=== PATIENT | male | born 1935 | race Caucasian/White ===

== ENCOUNTER 2017-08-17 14:34 | Emergency (ER) | payer MEDICARE, BC ==
[2017-08-17 14:41] VITALS: BP 143/81
[2017-08-17] MEDS ORDERED: Sodium Chloride 0.9% 10 ML Syringe FLUSH PRN (14:52)
[2017-08-17] MEDS ORDERED: Aspirin 81 MG Tab.Chew PO ONE (14:52)
--- NOTE | 2017-08-17 14:59 | EDM.PDOC ---
ED HPI GENERAL MEDICAL PROBLEM - General Chief Complaint: Chest Pain Stated Complaint: CHEST PAIN Time Seen by Provider: 08/17/17 14:42 Source of Information: Reports: Patient History Limitations: Reports: No Limitations - History of Present Illness INITIAL COMMENTS - FREE TEXT/NARRATIVE: The patient presents with chest pain. This started about 1/2 hour ago. It went away. He was a little short of breath with it. Before the pain he got nauseated and had some dry heaves. He has been having some diarrhea about a week ago and he went to the [facility] and everything checked out okay. He has no fever, chills, cough, congestion, runny nose, abdominal pain or edema in his legs. He was diagnosed with a PE in May. He is now on xaralto. He has no cardiac history and he does not smoke. Onset: Sudden Duration: Minutes: (30) Location: Reports: Chest Quality: Reports: Sharp Severity: Moderate Improves with: Reports: None Worsens with: Reports: None Associated Symptoms: Reports: Chest Pain, Shortness of Breath. Denies: Cough, Fever/Chills, Headaches, Nausea/Vomiting, Weakness Chest Pain Score (Numeric/FACES): 10 - Related Data Allergies Allergy/AdvReac Type Severity Reaction Status Date / Time No Known Allergies Allergy Verified 08/17/17 14:38 Home Meds: Home Meds Cholecalciferol (Vitamin D3) [Vitamin D3] 4,000 units PO DAILY 09/20/14 [History ] Losartan [Cozaar] 25 mg PO DAILY 09/20/14 [History] Propranolol HCl [Propranolol] 120 mg PO DAILY 09/20/14 [History] Simvastatin [Zocor] 10 mg PO BEDTIME 09/20/14 [History] Rivaroxaban [Xarelto] 20 mg PO DAILY 05/21/15 [History] Ubidecarenone [Coenzyme Q10] 10 mg PO DAILY 05/16/16 [History] rOPINIRole [Requip] 1 mg PO BID 05/16/16 [History] Albuterol Sulfate [Proair Respiclick] 90 mcg IH Q4H PRN #1 [email or web address] 05/20/16 [ Rx] Dextromethorphan/guaiFENesin [Robitussin DM] 10 ml PO Q4H PRN #1 bottle [Rx] Past Medical History HEENT History: Reports: Hard of Hearing, Impaired Vision Other HEENT History: wears glasses, hearing aids Cardiovascular History: Reports: High Cholesterol, Hypertension Respiratory History: Reports: PE Gastrointestinal History: Reports: Chronic Constipation, Diverticulosis Genitourinary History: Reports: Urinary Incontinence Musculoskeletal History: Reports: None Oncologic (Cancer) History: Reports: Prostate, Other (See Below) Other Oncologic History: skin cancer Dermatologic History: Reports: Other (See Below) Other Dermatologic History: skin cancer removed - Infectious Disease History Infectious Disease History: Reports: Chicken Pox, Measles, Mumps - Past Surgical History HEENT Surgical History: Reports: None Cardiovascular Surgical History: Reports: None Respiratory Surgical History: Reports: None GI Surgical History: Reports: Appendectomy, Hernia Repair/Other Male Surgical History: Reports: Prostatectomy Musculoskeletal Surgical History: Reports: Knee Replacement Other Musculoskeletal Surgeries/Procedures:: bilateral knee replacements Dermatological Surgical History: Reports: Skin Biopsy Social & Family History - Family History Family Medical History: Noncontributory - Tobacco Use Smoking Status *Q: Never Smoker Second Hand Smoke Exposure: No - Caffeine Use Caffeine Use: Reports: None - Alcohol Use Days Per Week of Alcohol Use: 0 - Recreational Drug Use Recreational Drug Use: No Drug Use in Last 12 Months: No - Living Situation & Occupation Living situation: Reports: Occupation: Retired ED ROS GENERAL - Review of Systems Review Of Systems: See Below Constitutional: Reports: No Symptoms HEENT: Reports: No Symptoms Respiratory: Reports: Shortness of Breath Cardiovascular: Reports: Chest Pain Endocrine: Reports: No Symptoms GI/Abdominal: Reports: No Symptoms : Reports: No Symptoms Musculoskeletal: Reports: No Symptoms Skin: Reports: No Symptoms Neurological: Reports: No Symptoms ED EXAM, GENERAL - Physical Exam Exam: See Below Exam Limited By: No Limitations General Appearance: Alert, No Apparent Distress Ears: Normal External Exam Nose: Normal Inspection Head: Atraumatic, Normocephalic Neck: Normal Inspection Respiratory/Chest: No Respiratory Distress, Lungs Clear, Normal Breath Sounds Cardiovascular: Regular Rate, Rhythm, No Edema, No Murmur GI/Abdominal: Soft, Non-Tender, No Organomegaly, No Mass Back Exam: Normal Inspection Extremities: Normal Inspection Neurological: Alert, Oriented, No Motor/Sensory Deficits EKG INTERPRETATION EKG Date: 08/17/17 Time: 14:37 Rhythm: NSR Rate (Beats/Min): 62 [place]: Normal P-Wave: Present QRS: Normal ST-T: Normal QT: Normal FL/PQ Interval: 1st degree HB Course - Vital Signs Last Recorded V/S: Last Vital Signs Temp 97.6 F 08/17/17 14:38 Pulse 62 08/17/17 14:38 Resp 18 08/17/17 14:38 BP 143/81 H 08/17/17 14:38 Pulse Ox 95 08/17/17 14:38 - Orders/Labs/Meds Orders: Active Orders 24 hr Category Date Time Status Cardiac Monitoring [RC] . DIRECTED Care 08/17/17 14:52 Active EKG Documentation Completion [RC] ASDIRECTED Care 08/17/17 17:13 Active EKG Documentation Completion [RC] STAT Care 08/17/17 14:52 Active Peripheral IV Care [RC] . DIRECTED Care 08/17/17 14:52 Active Sodium Chloride 0.9% [Saline Flush] Med 08/17/17 14:52 Active 10 ml FLUSH ASDIRECTED PRN Peripheral IV Insertion Adult [OM.PC] Stat Oth 08/17/17 14:52 Ordered EKG 12 Lead [EK] Stat Ther 08/17/17 17:12 Ordered Medication Orders Sodium Chloride (Saline Flush) 10 ml FLUSH ASDIRECTED PRN PRN Reason: Keep Vein Open Last Admin: 08/17/17 15:08 Dose: 10 ml Labs: Laboratory Tests 08/17/17 08/17/17 08/17/17 Range/Units 14:48 14:48 17:30 WBC 9.56 H (4.23-9.07) K/mm3 RBC 5.35 (4.63-6.08) M/mm3 Hgb 15.8 (13.7-17.5) gm/L Hct 48.3 (40.1-51.0) % MCV 90.3 (79.0-92.2) fl MCH 29.5 (25.7-32.2) pg MCHC 32.7 (32.2-35.5) g/dl RDW Std Deviation 46.7 H (35.1-43.9) fL Plt Count 218 (163-337) K/mm3 MPV 10.1 (9.4-12.3) fl Neut % (Auto) 77.4 H (34.0-67.9) % Lymph % (Auto) 14.6 L (21.8-53.1) % [place] % (Auto) 5.5 (5.3-12.2) % Eos % (Auto) 2.0 (0.8-7.0) Baso % (Auto) 0.2 (0.1-1.2) % Neut # (Auto) 7.39 H (1.78-5.38) K/mm3 Lymph # (Auto) 1.40 (1.32-3.57) K/mm3 [place] # (Auto) 0.53 (0.30-0.82) K/mm3 Eos # (Auto) 0.19 (0.04-0.54) K/mm3 Baso # (Auto) 0.02 (0.01-0.08) K/mm3 Sodium 142 (136-145) mEq/L Potassium 4.3 (3.5-5.1) mEq/L Chloride 105 (98-107) mEq/L Carbon Dioxide 27 (21-32) mEq/L Anion Gap 14.3 (5-15) BUN 26 H (7-18) mg/dL Creatinine 1.7 H (0.7-1.3) mg/dL Est Cr Clr Drug Dosing 34.00 mL/min Estimated GFR (MDRD) 39 (>60) mL/min BUN/Creatinine Ratio 15.3 (14-18) Glucose 92 (83-115) mg/dL Calcium 9.4 (8.5-10.1) mg/dL Total Bilirubin 1.0 (0.2-1.0) mg/dL AST 27 (15-37) U/L ALT 51 (16-63) U/L Alkaline Phosphatase 57 (46-116) U/L Troponin I < 0.017 < 0.017 (0.00-0.056) ng/mL Total Protein 7.7 (6.4-8.2) g/dl Albumin 3.9 (3.4-5.0) g/dl Globulin 3.8 gm/dL Albumin/Globulin Ratio 1.0 (1-2) Meds: Medications Generic Name Dose Route Start Last Admin Trade Name Freq PRN Reason Stop Dose Admin Sodium Chloride 10 ml 08/17/17 14:52 08/17/17 15:08 Saline Flush FLUSH 10 ml ASDIRECTED PRN Administration Keep Vein Open Discontinued Medications Generic Name Dose Route Start Last Admin Trade Name [place] PRN Reason Stop Dose Admin Aspirin 324 mg 08/17/17 14:52 08/17/17 15:06 Aspirin PO 08/17/17 14:53 324 mg ONETIME ONE Administration Sodium Chloride 500 mls @ 1,000 mls/hr 08/17/17 15:27 08/17/17 15:33 Normal Saline IV 08/17/17 15:56 1,000 mls/hr .BOLUS ONE Administration - Re-Assessments/Exams Free Text/Narrative Re-Assessment/Exam: 08/17/17 14:59 I ordered an IV saline lock, EKG, CXR, and labs. His EKG shows a 1st degree HB with no acute changes. 08/17/17 18:14 His CXR looks good. His WBC was slightly elevated at 9.56. His creatinine was elevated at 1.7. It has never been that high when he has been in before. I ordered an IV NS 500mL bolus. His torponin was negative. I ordered a repeat EKG and troponin and that was negative and his repeat EKG looked good. I will discharge him home and I have ordered stool studies that he will collect at home. Departure - Departure Time of Disposition: 18:15 Disposition: Home, Self-Care 01 Condition: Good Clinical Impression: Atypical chest pain, Renal insufficiency Diarrhea Qualifiers: Diarrhea type: unspecified type Qualified Code(s): R19.7 - Diarrhea, unspecified Referrals: [facility] [Primary Care Provider] - Forms: ED Department Discharge Additional Instructions: Drink plenty of water. Collect the diarrhea and bring it back to be tested. We will test if for bacteria and parasites. Please return if you are worse. Follow up in 1 week to have your kidneys rechecked. - My Orders Last 24 Hours: My Active Orders 08/17/17 14:52 Cardiac Monitoring [RC] . DIRECTED EKG Documentation Completion [RC] STAT Peripheral IV Care [RC] . DIRECTED Sodium Chloride 0.9% [Saline Flush] 10 ml FLUSH ASDIRECTED PRN Peripheral IV Insertion Adult [OM.PC] Stat 08/17/17 17:12 EKG 12 Lead [EK] Stat 08/17/17 17:13 EKG Documentation Completion [RC] ASDIRECTED - Assessment/Plan Last 24 Hours: My Active Orders 08/17/17 14:52 Cardiac Monitoring [RC] . DIRECTED EKG Documentation Completion [RC] STAT Peripheral IV Care [RC] . DIRECTED Sodium Chloride 0.9% [Saline Flush] 10 ml FLUSH ASDIRECTED PRN Peripheral IV Insertion Adult [OM.PC] Stat 08/17/17 17:12 EKG 12 Lead [EK] Stat 08/17/17 17:13 EKG Documentation Completion [RC] ASDIRECTED
[2017-08-17] MEDS ORDERED: Sodium Chloride 0.9% 500 ML IV ONE (15:27)
--- NOTE | 2017-08-17 15:30 | CR ---
Chest: Portable view of the chest was obtained. Comparison: Prior chest x-ray of 05/17/16. Heart size is normal. Tortuous thoracic aorta is seen. Minimal atelectasis is seen within both lung bases. Lungs otherwise are clear. Bony structures are grossly intact. Impression: 1. Incidental findings. Nothing acute is appreciated on portable chest x-ray. Diagnostic code #2
[2017-08-17] MEDS ORDERED: Ondansetron 4 MG Tab.DIS PO ONE (18:41)
== END 2017-08-17 18:34 | disposition home or self-care (01) ==
LOC: JD.ED 14:34
DX: R07.89 Other chest pain (principal); N28.9 Disorder of kidney and ureter, unspecified; R19.7 Diarrhea, unspecified; E78.00 Pure hypercholesterolemia, unspecified; I10 Essential (primary) hypertension; Z79.899 Other long term (current) drug therapy
CPT/HCPCS: 36415; 71045; 80053; 84484; 85025; 87046; 87328; 87329; 87493; 93005; 96360; 99285; A9270; J7040; J7050; 87427; 93010; 99284-25

== ENCOUNTER 2018-12-09 10:16 | Emergency (ER) | payer MEDICARE, BC, OTHER ==
[2018-12-09 10:36] VITALS: BP 135/63
[2018-12-09] MEDS ORDERED: Acetaminophen/HYDROcodone 325-5 MG Tab PO ONE (10:52)
--- NOTE | 2018-12-09 11:01 | EDM.PDOC ---
ED HPI GENERAL MEDICAL PROBLEM - General Chief Complaint: Back Pain or Injury Stated Complaint: BACK PAIN SENT FROM [place] Time Seen by Provider: 12/09/18 10:30 Source of Information: Reports: Patient, RN Notes Reviewed - History of Present Illness INITIAL COMMENTS - FREE TEXT/NARRATIVE: 83-year-old male comes in with quite severe low back discomfort. He states he awakened with pain in the low back area about one week ago. He did feel better after a massage but after spending 3-4 hours a riding lawnmower last evening the pain has become much worse. Now it is very painful to sit up, walk or move in any way. The pain has not been traveling down either leg but does radiate completely across the low back. He also has had some mild cold symptoms for about for 5 days. There is been some congestion, he did have a sore throat but that is gone. Occasional sneezing and nonproductive cough. No current fever or chills. He does not recall any particular fall or lifting injury to his back. - Related Data Allergies Allergy/AdvReac Type Severity Reaction Status Date / Time No Known Allergies Allergy Verified 12/09/18 10:36 Home Meds: Home Meds Cholecalciferol (Vitamin D3) [Vitamin D3] 2 tab PO DAILY 12/09/18 [History] Fish Oil/[place]-3 Fatty Acids [Fish Oil 1,000 MG] 2 tab PO DAILY 12/09/18 [ History] Lactobacillus Acidophilus [Acidophilus] 1 each PO DAILY 12/09/18 [History] Losartan [Cozaar] 25 mg PO DAILY 12/09/18 [History] Multivitamin [Daily Multiple Vitamin] 1 each PO DAILY 12/09/18 [History] Propranolol HCl [Inderal LA] 120 mg PO DAILY 12/09/18 [History] Pyridoxine HCl 25 mg PO DAILY 12/09/18 [History] Rivaroxaban [Xarelto] 20 mg PO DAILY 12/09/18 [History] Vit A/C/E AC/Znox/Cupric Oxide [Eye Vitamin-Minerals Tablet] 1 tab PO DAILY [History] atorvaSTATin Calcium [Atorvastatin Calcium] 40 mg PO BEDTIME 12/09/18 [History] rOPINIRole HCl [Ropinirole ER] 1 mg PO BID 12/09/18 [History] Past Medical History HEENT History: Reports: Hard of Hearing, Impaired Vision Other HEENT History: wears glasses, hearing aids Cardiovascular History: Reports: High Cholesterol, Hypertension Respiratory History: Reports: PE Gastrointestinal History: Reports: Chronic Constipation, Diverticulosis Genitourinary History: Reports: Urinary Incontinence Musculoskeletal History: Reports: None Oncologic (Cancer) History: Reports: Prostate, Other (See Below) Other Oncologic History: skin cancer Dermatologic History: Reports: Other (See Below) Other Dermatologic History: skin cancer removed - Infectious Disease History Infectious Disease History: Reports: Chicken Pox, Measles, Mumps - Past Surgical History HEENT Surgical History: Reports: None Cardiovascular Surgical History: Reports: None Respiratory Surgical History: Reports: None GI Surgical History: Reports: Appendectomy, Hernia Repair/Other Male Surgical History: Reports: Prostatectomy Musculoskeletal Surgical History: Reports: Knee Replacement Other Musculoskeletal Surgeries/Procedures:: bilateral knee replacements Dermatological Surgical History: Reports: Skin Biopsy Social & Family History - Family History Family Medical History: Noncontributory - Tobacco Use Smoking Status *Q: Current Status Unknown - Caffeine Use Caffeine Use: Reports: None - Living Situation & Occupation Living situation: Reports: Occupation: Retired ED ROS GENERAL - Review of Systems Review Of Systems: See Below Constitutional: Denies: Fever, Chills, Diaphoresis HEENT: Reports: Rhinitis (Gone mild), Throat Pain Respiratory: Reports: Cough. Denies: Shortness of Breath Cardiovascular: Denies: Chest Pain (Occasional nonproductive) GI/Abdominal: Denies: Abdominal Pain, Nausea, Vomiting Musculoskeletal: Reports: Back Pain. Denies: Leg Pain Skin: Denies: Rash Neurological: Denies: Numbness, Tingling, Weakness ED EXAM,LOWER BACK PAIN/INJURY - Physical Exam Exam: See Below General Appearance: Alert, Mild Distress Eye Exam: Bilateral Eye: PERRL Throat/Mouth: Normal Inspection, Normal Oropharynx Head: No: Facial Swelling Neck: Supple Respiratory/Chest: No Respiratory Distress, Lungs Clear, Normal Breath Sounds. No: Rales, Rhonchi Cardiovascular: Regular Rate, Rhythm GI/Abdominal: Soft, Non-Tender Back Exam: Other (Mild tenderness bilateral low back, no bruising or swelling) Extremities: No Pedal Edema Neurological: Alert, No Motor/Sensory Deficits Skin Exam: Warm, Dry, Normal Color Course - Vital Signs Last Recorded V/S: Last Vital Signs Temp 98.7 F 12/09/18 10:34 Pulse 62 05/31/19 10:34 Resp 18 12/09/18 10:34 BP 135/63 12/09/18 10:34 Pulse Ox 96 12/09/18 10:34 - Orders/Labs/Meds Labs: Laboratory Tests 12/09/18 12/09/18 12/09/18 Range/Units 11:25 11:25 12:05 WBC 7.57 (4.23-9.07) K/mm3 RBC 4.52 L (4.63-6.08) M/mm3 Hgb 13.5 L D (13.7-17.5) gm/L Hct 41.8 (40.1-51.0) % MCV 92.5 H (79.0-92.2) fl MCH 29.9 (25.7-32.2) pg MCHC 32.3 (32.2-35.5) g/dl RDW Std Deviation 45.9 H (35.1-43.9) fL Plt Count 201 (163-337) K/mm3 MPV 9.5 (9.4-12.3) fl Neut % (Auto) 46.9 (34.0-67.9) % Lymph % (Auto) 40.7 (21.8-53.1) % [place] % (Auto) 7.9 (5.3-12.2) % Eos % (Auto) 3.3 (0.8-7.0) Baso % (Auto) 0.7 (0.1-1.2) % Neut # (Auto) 3.55 (1.78-5.38) K/mm3 Lymph # (Auto) 3.08 (1.32-3.57) K/mm3 [place] # (Auto) 0.60 (0.30-0.82) K/mm3 Eos # (Auto) 0.25 (0.04-0.54) K/mm3 Baso # (Auto) 0.05 (0.01-0.08) K/mm3 Sodium 141 (136-145) mEq/L Potassium 3.8 (3.5-5.1) mEq/L Chloride 105 (98-107) mEq/L Carbon Dioxide 26 (21-32) mEq/L Anion Gap 13.8 (5-15) BUN 26 H (7-18) mg/dL Creatinine 1.6 H (0.7-1.3) mg/dL Est Cr Clr Drug Dosing 34.85 mL/min Estimated GFR (MDRD) 41 (>60) mL/min BUN/Creatinine Ratio 16.3 (14-18) Glucose 124 H (83-115) mg/dL Calcium 9.0 (8.5-10.1) mg/dL Total Bilirubin 1.0 (0.2-1.0) mg/dL AST 26 (15-37) U/L ALT 48 (16-63) U/L Alkaline Phosphatase 63 (46-116) U/L Total Protein 6.8 (6.4-8.2) g/dl Albumin 3.3 L (3.4-5.0) g/dl Globulin 3.5 gm/dL Albumin/Globulin Ratio 0.9 L (1-2) Urine Color Yellow (Yellow) Urine Appearance Cloudy H (Clear) Urine pH 5.5 (5.0-8.0) Ur Specific [place] 1.020 (1.005-1.030) Urine Protein 1+ H (Negative) Urine Glucose (UA) Negative (Negative) Urine Ketones Negative (Negative) Urine Occult Blood 3+ H (Negative) Urine Nitrite Positive H (Negative) Urine Bilirubin Negative (Negative) Urine Urobilinogen 0.2 (0.2-1.0) Ur Leukocyte Esterase 2+ H (Negative) Urine RBC 10-20 H (0-5) /hpf Urine WBC 30-40 H (0-5) /hpf Urine WBC Clumps Moderate (NOT SEEN) /hpf Ur Squamous Epith Cells Not seen (0-5) /hpf Urine Bacteria Moderate H (FEW) /hpf Urine Mucus Not seen (FEW) /hpf Meds: Medications Discontinued Medications Generic Name Dose Route Start Last Admin Trade Name Freq PRN Reason Stop Dose Admin Acetaminophen 975 mg 12/09/18 11:26 12/09/18 11:33 Tylenol PO 12/09/18 11:27 975 mg NOW ONE Administration Hydrocodone Bitart/Acetaminophen 1 tab 12/09/18 10:52 12/09/18 11:23 [place] 325-5 Mg PO 12/09/18 10:53 Not Given ONETIME ONE Levofloxacin 500 mg 12/09/18 12:39 Levaquin PO 12/09/18 12:40 ONETIME ONE Departure - Departure Time of Disposition: 12:43 Disposition: Home, Self-Care 01 Condition: Fair Clinical Impression: Bronchitis UTI (urinary tract infection) Qualifiers: Urinary tract infection type: acute cystitis Hematuria presence: without hematuria Qualified Code(s): N30.00 - Acute cystitis without hematuria - Discharge Information Referrals: Perla Ayon MD [Primary Care Provider] - Forms: ED Department Discharge Additional Instructions: Rest, drink plenty of water to maintain hydration, we have given your first dose of Levaquin antibiotic here in the emergency department. Your next dose should be tomorrow morning and continue that daily for 1 week or until gone. Follow-up with your regular medical provider in about 5-7 days for recheck, call for appointment. Tylenol every 6-8 hours as needed for achiness and discomfort. Return to ED as needed if symptoms worsening in any way
[2018-12-09] MEDS ORDERED: Acetaminophen 325 MG Tab PO ONE (11:26)
--- NOTE | 2018-12-09 12:02 | CR ---
Chest: Frontal view of the chest was obtained. Comparison: Prior chest x-ray of 08/17/17 Increasing interstitial change is noted within both perihilar regions as well as both lung bases. Findings are most likely due to bronchitis superimposed upon fibrosis. No alveolar type densities are seen. Heart size is normal. Tortuous thoracic aorta is seen. Bony structures are grossly intact. Impression: 1. Increasing interstitial change as described above most likely representing bronchitis superimposed upon fibrosis. 2. Other incidental findings. Diagnostic code #3
--- NOTE | 2018-12-09 12:02 | CR ---
Lumbar spine: AP, lateral and cone-down lateral view centered to the lumbosacral junction were obtained. Comparison: No prior lumbar spine imaging. Severe disc space narrowing is noted at L2-L3. Mild posterior osteophytes and anterior osteophytes are noted at L2-L3. Mild anterior osteophytes are also noted within L4 and L5. Other disc spaces are maintained. Vertebral body heights are maintained. Pedicles as well as visualized transverse and spinous processes are intact. Sacroiliac joints appear within normal limits. Surgical clips are seen within the pelvis. Impression: 1. Degenerative change as noted above, primarily at L2-L3. Diagnostic code #2
[2018-12-09] MEDS ORDERED: Levofloxacin 500 MG Tab PO ONE (12:39)
== END 2018-12-09 12:55 | disposition home or self-care (01) ==
LOC: JD.ED 10:16
DX: J40 Bronchitis, not specified as acute or chronic (principal); N30.00 Acute cystitis without hematuria; M54.5 Low back pain; I10 Essential (primary) hypertension; Z90.49 Acquired absence of other specified parts of digestive tract; Z96.653 Presence of artificial knee joint, bilateral
CPT/HCPCS: 36415; 71045; 72100; 80053; 81001; 85025; 99283; A9270

== ENCOUNTER 2019-06-29 10:14 | Emergency (ER) | payer MEDICARE, BC ==
[2019-06-29 10:26] VITALS: BP 145/81; PULSE 88
--- NOTE | 2019-06-29 11:12 | CT ---
Head CT Technique: Multiple axial sections through the brain were obtained. Intravenous contrast was not utilized. Comparison: Previous head CT study of 05/15/16. 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 Ventricles along with basal cisterns and sulci over convexities are mildly prominent. Minimal diminished density is noted within portions of the periventricular white matter compatible with small vessel ischemic demyelination change. No other abnormal parenchymal densities are seen. No evidence of intracranial hemorrhage. No midline shift or mass effect is seen. Bone window settings were reviewed which show nothing acute within the mastoid sinuses or within the visualized paranasal sinuses. No acute calvarial abnormality is appreciated. Impression: 1. Senescent change as noted above. 2. No acute intracranial abnormality is appreciated. 3. No significant change is seen from previous head CT exam. Diagnostic code #2 This report was dictated in [place] Standard Time
--- NOTE | 2019-06-29 11:44 | CR ---
Pelvis and left hip: AP view of the pelvis was obtained as well as AP view and slight frog-leg lateral view of the left hip. Findings: Joint space narrowing is noted within both hips. Osteopenia is seen. Disc space narrowing is noted within the lower lumbar spine. Surgical clips are seen within the pelvis. Sacroiliac joints appear within normal limits. Impression: 1. Degenerative change as noted above. 2. Nothing acute is definitely seen on AP pelvis or on two-view left hip exam. Diagnostic code #2 This report was dictated in [place] Standard Time
--- NOTE | 2019-06-29 12:27 | EDM.PDOC ---
ED HPI GENERAL MEDICAL PROBLEM - General Chief Complaint: Upper Extremity Injury/Pain Stated Complaint: FALL/LEFT SHOULDER PAIN Time Seen by Provider: 06/29/19 10:29 Source of Information: Reports: Patient History Limitations: Reports: No Limitations - History of Present Illness INITIAL COMMENTS - FREE TEXT/NARRATIVE: The patient presents with left shoulder and left hip pain. He was moving some lumber last night and he was walking backward and he either slipped on ice or tripped and he landed on his left side. He did hit his head and he did have a headache but that is better. He is on xarelto. He also has left shoulder pain and he cannot move his shoulder. He is right handed. He also has some pain in his left hip. He can walk but there is pain. He has no chest pain or shortness of breath. Onset: Sudden Duration: Day(s): (Last night) Location: Reports: Head, Upper Extremity, Left (shoulder), Lower Extremity, Left (hip) Quality: Reports: Sharp Severity: Moderate Improves with: Reports: Immobilization Worsens with: Reports: Movement Context: Reports: Trauma (slipped and fell) Associated Symptoms: Reports: No Other Symptoms Left Shoulder Pain Score (Numeric/FACES): 10 - Related Data Allergies Allergy/AdvReac Type Severity Reaction Status Date / Time No Known Allergies Allergy Verified 12/09/18 10:36 Home Meds: Home Meds Cholecalciferol (Vitamin D3) [Vitamin D3] 2 tab PO DAILY 12/09/18 [History] Fish Oil/[place]-3 Fatty Acids [Fish Oil 1,000 MG] 2 tab PO DAILY 12/09/18 [ History] Lactobacillus Acidophilus [Acidophilus] 1 each PO DAILY 12/09/18 [History] Losartan [Cozaar] 25 mg PO DAILY 12/09/18 [History] Multivitamin [Daily Multiple Vitamin] 1 each PO DAILY 12/09/18 [History] Propranolol HCl [Inderal LA] 120 mg PO DAILY 12/09/18 [History] Pyridoxine HCl (Vitamin B6) [Pyridoxine HCl] 25 mg PO DAILY 12/09/18 [History] Rivaroxaban [Xarelto] 20 mg PO DAILY 12/09/18 [History] Vit A/C/E AC/Znox/Cupric Oxide [Eye Vitamin-Minerals Tablet] 1 tab PO DAILY [History] atorvaSTATin Calcium [Atorvastatin Calcium] 40 mg PO BEDTIME 12/09/18 [History] levoFLOXacin [Levaquin] 250 mg PO DAILY #7 tab 12/09/18 [Rx] rOPINIRole HCl [Ropinirole ER] 1 mg PO BID 12/09/18 [History] Past Medical History HEENT History: Reports: Hard of Hearing, Impaired Vision Other HEENT History: wears glasses, hearing aids Cardiovascular History: Reports: High Cholesterol, Hypertension Respiratory History: Reports: PE Gastrointestinal History: Reports: Chronic Constipation, Diverticulosis Genitourinary History: Reports: Urinary Incontinence Musculoskeletal History: Reports: None Oncologic (Cancer) History: Reports: Prostate, Other (See Below) Other Oncologic History: skin cancer Dermatologic History: Reports: Other (See Below) Other Dermatologic History: skin cancer removed - Infectious Disease History Infectious Disease History: Reports: Chicken Pox, Measles, Mumps - Past Surgical History HEENT Surgical History: Reports: None Cardiovascular Surgical History: Reports: None Respiratory Surgical History: Reports: None GI Surgical History: Reports: Appendectomy, Hernia Repair/Other Male Surgical History: Reports: Prostatectomy Musculoskeletal Surgical History: Reports: Knee Replacement Other Musculoskeletal Surgeries/Procedures:: bilateral knee replacements Dermatological Surgical History: Reports: Skin Biopsy Social & Family History - Family History Family Medical History: Noncontributory - Tobacco Use Smoking Status *Q: Never Smoker - Caffeine Use Caffeine Use: Reports: None - Living Situation & Occupation Living situation: Reports: Occupation: Retired Review of Systems - Review of Systems Review Of Systems: See Below Constitutional: Reports: No Symptoms Eyes: Reports: No Symptoms Ears: Reports: No Symptoms Nose: Reports: No Symptoms Mouth/Throat: Reports: No Symptoms Respiratory: Reports: No Symptoms Cardiovascular: Reports: No Symptoms GI/Abdominal: Reports: No Symptoms Genitourinary: Reports: No Symptoms Musculoskeletal: Reports: Other (Left shoulder and hip pain) ED EXAM, GENERAL - Physical Exam Exam: See Below Exam Limited By: No Limitations General Appearance: Alert, No Apparent Distress Ears: Normal External Exam Nose: Normal Inspection Head: Atraumatic, Normocephalic Neck: Normal Inspection, Supple, Non-Tender Respiratory/Chest: No Respiratory Distress, Lungs Clear, Normal Breath Sounds Cardiovascular: Regular Rate, Rhythm, No Edema, No Murmur GI/Abdominal: Soft, Non-Tender, No Organomegaly, No Mass Back Exam: Normal Inspection Extremities: Other (Pain upon palpation to the anterior shoulder and he cannot lift his shoulder without help. He has good sensation and pulses distally. He has pain upon palpation to the left hip. He has good sensation and pulses distally.) Course - Vital Signs Last Recorded V/S: Last Vital Signs Temp 97.8 F 06/29/19 10:23 Pulse 88 06/29/19 10:23 Resp 16 06/29/19 10:23 BP 145/81 H 06/29/19 10:23 Pulse Ox 98 06/29/19 10:23 - Orders/Labs/Meds Orders: Active Orders 24 hr Category Date Time Status Shoulder Comp Lt [CR] Stat Exams 06/29/19 10:48 Taken - Re-Assessments/Exams Free Text/Narrative Re-Assessment/Exam: 06/29/19 12:[address] of his head and an x-ray of his left shoulder and left hip. The CT of his head shows senescent change. No acute intracranial abnormality is appreciated. No significant change is seen from previous head CT exam. The x-ray of his hip and pelvis shows degenerative change. Nothing acute is definitely seen on AP pelvis or on two-view left hip exam. 06/29/19 12:35 The x-ray shows findings suspicious for chronic rotator cuff tear and degenerative changes but nothing acute. I will get him in a sling and have him follow up with PT and Dr Rausch. Departure - Departure Time of Disposition: 12:45 Disposition: Home, Self-Care 01 Condition: Good Clinical Impression: Fall Qualifiers: Encounter type: initial encounter Qualified Code(s): W19.XXXA - Unspecified fall, initial encounter Head injury Qualifiers: Encounter type: initial encounter Qualified Code(s): S09.90XA - Unspecified injury of head, initial encounter Contusion of left hip Qualifiers: Encounter type: initial encounter Qualified Code(s): S70.02XA - Contusion of left hip, initial encounter Sprain of left shoulder Qualifiers: Encounter type: initial encounter Shoulder sprain type: unspecified sprain Qualified Code(s): S43.402A - Unspecified sprain of left shoulder joint, initial encounter - Discharge Information *PRESCRIPTION DRUG MONITORING PROGRAM REVIEWED*: Not Applicable *COPY OF PRESCRIPTION DRUG MONITORING REPORT IN PATIENT [place]: Not Applicable Referrals: Perla Ayon MD [Primary Care Provider] - Dada Rausch MD [Physician] - 1 Week Forms: ED Department Discharge Additional Instructions: Take tylenol or motrin for pain. Ice the areas that hurt for 15 minutes 3 times per day for 2 days. Wear the sling for comfort and take it off 3 to 5 times per day and try to move your shoulder to avoid frozen shoulder. Follow up with Dr Rausch and with physical therapy. Please return if you are worse. Sepsis Event Note - Evaluation Sepsis Screening Result: No Definite Risk - Focused Exam Vital Signs: Vital Signs Temp Pulse Resp BP Pulse Ox 06/29/19 10:23 97.8 F 88 16 145/81 H 98 Date Exam was Performed: 06/29/19 Time Exam was Performed: 12:35 - My Orders Last 24 Hours: My Active Orders 06/29/19 10:48 Shoulder Comp Lt [CR] Stat - Assessment/Plan Last 24 Hours: My Active Orders 06/29/19 10:48 Shoulder Comp Lt [CR] Stat
--- NOTE | 2019-06-29 12:35 | CR ---
Left shoulder: 3 views left shoulder were obtained. Comparison: No previous shoulder study. Humeral head is slightly subluxed superiorly suggesting chronic rotator cuff tear. Joint space narrowing and superior spurring is seen within the acromioclavicular joint. Bony structures are osteopenic. Impression: 1. Findings suspicious for chronic rotator cuff tear within the left shoulder. 2. Degenerative change within the acromioclavicular joint. Diagnostic code #2 This report was dictated in [place] Standard Time
== END 2019-06-29 13:15 | disposition home or self-care (01) ==
LOC: JD.ED 10:14
DX: S09.90XA Unspecified injury of head, initial encounter (principal); S43.402A Unspecified sprain of left shoulder joint, initial encounter; S70.02XA Contusion of left hip, initial encounter; I10 Essential (primary) hypertension; Z79.899 Other long term (current) drug therapy; Z90.49 Acquired absence of other specified parts of digestive tract; W19.XXXA Unspecified fall, initial encounter
CPT/HCPCS: 70450; 70450-26; 73030-26-LT; 73030-LT; 73502-26-LT; 73502-LT; 99284-25

== ENCOUNTER 2020-02-23 13:59 | Emergency (ER) | payer MEDICARE, BC ==
[2020-02-23 14:13] VITALS: BP 136/69; PULSE 56
[2020-02-23] MEDS ORDERED: Sodium Chloride 0.9% 10 ML Syringe FLUSH PRN (14:50)
--- NOTE | 2020-02-23 15:20 | CR ---
Chest: Portable view of the chest was obtained. Comparison: Prior chest x-ray of 12/09/18. Chronic increased markings are seen within both lung bases most likely representing basilar fibrosis. Upper lungs are clear. Heart size is normal. Tortuous thoracic aorta is seen. Bony structures are grossly intact. Impression: 1. Findings as described above. 2. Nothing acute is suspected. Diagnostic code #2 Study was dictated in MDT
--- NOTE | 2020-02-23 15:54 | EDM.PDOC ---
ED HPI GENERAL MEDICAL PROBLEM - General Chief Complaint: General Stated Complaint: HEADACHE/FATIGUE (SENT TO BE TESTED FOR COVID) Time Seen by Provider: 02/23/20 14:22 Source of Information: Reports: Patient, RN Notes Reviewed - History of Present Illness INITIAL COMMENTS - FREE TEXT/NARRATIVE: 84 yr old male became ill 8 days ago with abd pain, nausea, vomiting. He vomited multiple times for a day or so with no further vomiting but also poor appetite, generalized weakness, dizziness standing and walking for the past 6 days. No diarrhea. He has not been constipated. no focal weakness. No chest pain, cough or difficulty breathing. Pt is reported to have been confused, "not thinking clearly" but doing better today. Headache Pain Score (Numeric/FACES): 7 - Related Data Allergies Allergy/AdvReac Type Severity Reaction Status Date / Time No Known Allergies Allergy Verified 12/09/18 10:36 Home Meds: Home Meds Cholecalciferol (Vitamin D3) [Vitamin D3] 2 tab PO DAILY 12/09/18 [History] Fish Oil/[place]-3 Fatty Acids [Fish Oil 1,000 MG] 2 tab PO DAILY 12/09/18 [History] Lactobacillus Acidophilus [Acidophilus] 1 each PO DAILY 12/09/18 [History] Losartan [Cozaar] 25 mg PO DAILY 12/09/18 [History] Multivitamin [Daily Multiple Vitamin] 1 each PO DAILY 12/09/18 [History] Propranolol HCl [Inderal LA] 120 mg PO DAILY 12/09/18 [History] Pyridoxine HCl (Vitamin B6) [Pyridoxine HCl] 25 mg PO DAILY 12/09/18 [History] Rivaroxaban [Xarelto] 20 mg PO DAILY 12/09/18 [History] Vit A/C/E AC/Znox/Cupric Oxide [Eye Vitamin-Minerals Tablet] 1 tab PO DAILY 12/09/18 [History] atorvaSTATin Calcium [Atorvastatin Calcium] 40 mg PO BEDTIME 12/09/18 [History] levoFLOXacin [Levaquin] 250 mg PO DAILY #7 tab 12/09/18 [Rx] rOPINIRole HCl [Ropinirole ER] 1 mg PO BID 12/09/18 [History] Past Medical History HEENT History: Reports: Hard of Hearing, Impaired Vision Other HEENT History: wears glasses, hearing aids Cardiovascular History: Reports: High Cholesterol, Hypertension Respiratory History: Reports: PE Gastrointestinal History: Reports: Chronic Constipation, Diverticulosis Genitourinary History: Reports: Urinary Incontinence Musculoskeletal History: Reports: None Oncologic (Cancer) History: Reports: Prostate, Other (See Below) Other Oncologic History: skin cancer Dermatologic History: Reports: Other (See Below) Other Dermatologic History: skin cancer removed - Infectious Disease History Infectious Disease History: Reports: Chicken Pox, Measles, Mumps - Past Surgical History HEENT Surgical History: Reports: None Cardiovascular Surgical History: Reports: None Respiratory Surgical History: Reports: None GI Surgical History: Reports: Appendectomy, Hernia Repair/Other Male Surgical History: Reports: Prostatectomy Musculoskeletal Surgical History: Reports: Knee Replacement Other Musculoskeletal Surgeries/Procedures:: bilateral knee replacements Dermatological Surgical History: Reports: Skin Biopsy Social & Family History - Family History Family Medical History: Noncontributory - Tobacco Use Smoking Status *Q: Never Smoker - Caffeine Use Caffeine Use: Reports: None - Recreational Drug Use Recreational Drug Use: No - Living Situation & Occupation Living situation: Reports: Occupation: Retired ED ROS GENERAL - Review of Systems Review Of Systems: See Below Constitutional: Denies: Fever, Chills, Diaphoresis HEENT: Denies: Sinus Problem, Throat Pain Respiratory: Denies: Shortness of Breath, Cough Cardiovascular: Denies: Chest Pain Endocrine: Reports: Fatigue Musculoskeletal: Reports: No Symptoms Skin: Denies: Rash Neurological: Reports: Dizziness, Weakness (generalized). Denies: Headache, Numbness, Tingling, Trouble Speaking ED EXAM, GENERAL - Physical Exam Exam: See Below General Appearance: Alert, No Apparent Distress Head: Atraumatic. No: Facial Swelling Neck: Supple Respiratory/Chest: No Respiratory Distress, Lungs Clear, Normal Breath Sounds. No: Rhonchi, Wheezing Cardiovascular: Regular Rate, Rhythm GI/Abdominal: Soft, Non-Tender. No: Guarding Back Exam: No: CVA Tenderness (L), CVA Tenderness (R) Extremities: Normal Inspection. No: Pedal Edema, Leg Pain, Redness Neurological: Alert, Oriented, No Motor/Sensory Deficits Psychiatric: Normal Affect, Normal Mood Skin Exam: Warm, Dry, Normal Color EKG INTERPRETATION EKG Date: 02/23/20 Rhythm: NSR [place]: Normal P-Wave: Present QRS: Normal ST-T: Normal Course - Vital Signs Last Recorded V/S: Last Vital Signs Temp 97.5 F 02/23/20 14:11 Pulse 56 L 02/23/20 14:11 Resp 20 02/23/20 14:11 BP 136/69 02/23/20 14:11 Pulse Ox 98 02/23/20 14:11 Orthostatic Blood Pressure [ 105/74 Standing] Orthostatic Blood Pressure [ 125/63 Supine] - Orders/Labs/Meds Orders: Active Orders 24 hr Category Date Time Status CORONAVIRUS COVID-19 PCR PHL Stat Lab 02/23/20 16:15 Received Peripheral IV Insertion Adult [OM.PC] Stat Oth 02/23/20 14:50 Ordered Labs: Laboratory Tests 02/23/20 02/23/20 02/23/20 Range/Units 15:03 15:03 15:03 WBC 7.51 (4.23-9.07) K/mm3 RBC 4.27 L (4.63-6.08) M/mm3 Hgb 12.6 L (13.7-17.5) gm/dl Hct 39.2 L (40.1-51.0) % MCV 91.8 (79.0-92.2) fl MCH 29.5 (25.7-32.2) pg MCHC 32.1 L (32.2-35.5) g/dl RDW Std Deviation 45.4 H (35.1-43.9) fL Plt Count 324 D (163-337) K/mm3 MPV 9.1 L (9.4-12.3) fl Neut % (Auto) 49.2 (34.0-67.9) % Lymph % (Auto) 35.3 (21.8-53.1) % [place] % (Auto) 9.6 (5.3-12.2) % Eos % (Auto) 2.7 (0.8-7.0) Baso % (Auto) 1.2 (0.1-1.2) % Neut # (Auto) 3.70 (1.78-5.38) K/mm3 Lymph # (Auto) 2.65 (1.32-3.57) K/mm3 [place] # (Auto) 0.72 (0.30-0.82) K/mm3 Eos # (Auto) 0.20 (0.04-0.54) K/mm3 Baso # (Auto) 0.09 H (0.01-0.08) K/mm3 Manual Slide Review Normal smear D-Dimer, Quantitative 0.26 (0.19-0.50) mg/L Sodium (136-145) mEq/L Potassium (3.5-5.1) mEq/L Chloride (98-107) mEq/L Carbon Dioxide (21-32) mEq/L Anion Gap (5-15) BUN (7-18) mg/dL Creatinine (0.7-1.3) mg/dL Est Cr Clr Drug Dosing mL/min Estimated GFR (MDRD) (>60) mL/min BUN/Creatinine Ratio (14-18) Glucose (83-115) mg/dL Calcium (8.5-10.1) mg/dL Ferritin (26-388) ng/ml Total Bilirubin (0.2-1.0) mg/dL AST (15-37) U/L ALT (16-63) U/L Alkaline Phosphatase (46-116) U/L Troponin I (0.00-0.056) ng/mL C-Reactive Protein 1.4 H* (<1.0) mg/dL Total Protein (6.4-8.2) g/dl Albumin (3.4-5.0) g/dl Globulin gm/dL Albumin/Globulin Ratio (1-2) 02/23/20 02/23/20 Range/Units 15:03 15:03 WBC (4.23-9.07) K/mm3 RBC (4.63-6.08) M/mm3 Hgb (13.7-17.5) gm/dl Hct (40.1-51.0) % MCV (79.0-92.2) fl MCH (25.7-32.2) pg MCHC (32.2-35.5) g/dl RDW Std Deviation (35.1-43.9) fL Plt Count (163-337) K/mm3 MPV (9.4-12.3) fl Neut % (Auto) (34.0-67.9) % Lymph % (Auto) (21.8-53.1) % [place] % (Auto) (5.3-12.2) % Eos % (Auto) (0.8-7.0) Baso % (Auto) (0.1-1.2) % Neut # (Auto) (1.78-5.38) K/mm3 Lymph # (Auto) (1.32-3.57) K/mm3 [place] # (Auto) (0.30-0.82) K/mm3 Eos # (Auto) (0.04-0.54) K/mm3 Baso # (Auto) (0.01-0.08) K/mm3 Manual Slide Review D-Dimer, Quantitative (0.19-0.50) mg/L Sodium 139 (136-145) mEq/L Potassium 3.9 (3.5-5.1) mEq/L Chloride 104 (98-107) mEq/L Carbon Dioxide 25 (21-32) mEq/L Anion Gap 13.9 (5-15) BUN 26 H (7-18) mg/dL Creatinine 1.5 H (0.7-1.3) mg/dL Est Cr Clr Drug Dosing 36.50 mL/min Estimated GFR (MDRD) 44 (>60) mL/min BUN/Creatinine Ratio 17.3 (14-18) Glucose 102 (83-115) mg/dL Calcium 8.7 (8.5-10.1) mg/dL Ferritin 214 (26-388) ng/ml Total Bilirubin 0.4 (0.2-1.0) mg/dL AST 17 (15-37) U/L ALT 31 (16-63) U/L Alkaline Phosphatase 68 (46-116) U/L Troponin I < 0.017 (0.00-0.056) ng/mL C-Reactive Protein (<1.0) mg/dL Total Protein 7.0 (6.4-8.2) g/dl Albumin 2.9 L (3.4-5.0) g/dl Globulin 4.1 gm/dL Albumin/Globulin Ratio 0.7 L (1-2) Meds: Medications Discontinued Medications Generic Name Dose Route Start Last Admin Trade Name Freq PRN Reason Stop Dose Admin Sodium Chloride 500 mls @ 999 mls/hr 02/23/20 16:00 02/23/20 16:14 Normal Saline IV 02/23/20 16:30 999 mls/hr .BOLUS ONE Administration Ondansetron HCl 4 mg 02/23/20 16:06 02/23/20 16:12 Zofran IVPUSH 02/23/20 16:07 4 mg ONETIME ONE Administration Sodium Chloride 10 ml 02/23/20 14:50 02/23/20 15:04 Saline Flush FLUSH 10 ml ASDIRECTED PRN Administration Keep Vein Open - Re-Assessments/Exams Free Text/Narrative Re-Assessment/Exam: 02/24/20 15:01 Labs all came back relatively nl. trop neg. CXR and head CT fine. Covid screen done, to be sent to state lab Departure - Departure Time of Disposition: 18:00 Disposition: Home, Self-Care 01 Condition: Fair Clinical Impression: Generalized weakness, Anorexia Vomiting Qualifiers: Vomiting type: unspecified Vomiting Intractability: non-intractable Nausea presence: with nausea Qualified Code(s): R11.2 - Nausea with vomiting, unspecified - Discharge Information Instructions: Weakness, [place], Vomiting, Adult Referrals: Perla Ayon MD [Primary Care Provider] - Forms: ED Department Discharge Additional Instructions: rest, clear liquids and very careful bland diet as tolerated. Your blood pressures today in the ED are running mildly low. Do not take your Inderol 120 mg LA today or tomorrow. Than go to every other day for now with that medication. Covid screen has been done. We will call you with results when they become available in 2 to 4 days. See your regular medical provider for recheck early next week. Call Wednesday morning for appointment. Return to ED as needed if symptoms worsening in any way. Sepsis Event Note (ED) - Evaluation Sepsis Screening Result: No Definite Risk - My Orders Last 24 Hours: My Active Orders 02/23/20 14:50 Peripheral IV Insertion Adult [OM.PC] Stat 02/23/20 16:15 CORONAVIRUS COVID-19 PCR PHL Stat - Assessment/Plan Last 24 Hours: My Active Orders 02/23/20 14:50 Peripheral IV Insertion Adult [OM.PC] Stat 02/23/20 16:15 CORONAVIRUS COVID-19 PCR PHL Stat
[2020-02-23] MEDS ORDERED: Sodium Chloride 0.9% 500 ML IV ONE (16:00)
[2020-02-23] MEDS ORDERED: Ondansetron 4 MG/2 ML SDV IVPUSH ONE (16:06)
--- NOTE | 2020-02-23 17:28 | CT ---
Head CT Technique: Multiple axial sections through the brain were obtained. Intravenous contrast was not utilized. Comparison: Prior head CT study of 06/29/19. Findings: Low density is noted within the left frontal lobe and within the posterior right parietal lobe. 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 Mild diminished density is noted within portions of the periventricular white matter which is compatible with small vessel ischemic demyelination change. No other abnormal parenchymal densities are seen. No evidence of intracranial hemorrhage. No midline shift or mass-effect is seen. Visualized mastoid sinuses and visualized paranasal sinuses show nothing acute. No acute calvarial finding is seen. Impression: 1. Senescent change as noted above. No change from previous head CT study is seen. 2. Nothing acute is identified on noncontrasted CT study. Diagnostic code #2 This report was dictated in MDT
--- NOTE | 2020-02-23 17:41 | CR ---
Abdomen: Supine and upright views the abdomen were obtained. Comparison: No previous study. Surgical clips are seen within the pelvis. Bowel gas pattern is normal. 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 Mild degenerative change is noted within the spine. Bowel gas pattern appears normal. Impression: 1. Findings as noted above. 2. Nothing acute is appreciated. Diagnostic code #2 This report was dictated in MDT
== END 2020-02-23 18:15 | disposition home or self-care (01) ==
LOC: JD.ED 13:59
DX: R53.1 Weakness (principal); R63.0 Anorexia; R11.2 Nausea with vomiting, unspecified; E78.00 Pure hypercholesterolemia, unspecified; I10 Essential (primary) hypertension; Z86.711 Personal history of pulmonary embolism; Z79.01 Long term (current) use of anticoagulants; Z79.899 Other long term (current) drug therapy; Z20.828 Contact with and (suspected) exposure to other viral communicable diseases
CPT/HCPCS: 36415; 70450; 71045; 74019; 80053; 82728; 84484; 85025; 85379; 86140; 96361; 96374; 99285; J2405; J7030; U0002; 93010; 99283

== ENCOUNTER 2020-03-28 00:15 | Inpatient (IN) | payer MEDICARE, BC, OTHER ==
[2020-03-28] MEDS ORDERED: Ondansetron 4 MG/2 ML SDV IVPUSH ONE (00:42)
[2020-03-28] MEDS ORDERED: Sodium Chloride 0.9% 10 ML Syringe FLUSH PRN (00:42)
[2020-03-28] MEDS: Sodium Chloride 0.9% 1,000 ML IV SCH ×2 (01:19→09:54)
--- NOTE | 2020-03-28 01:33 | EDM.PDOC ---
ED HPI GENERAL MEDICAL PROBLEM - General Chief Complaint: Respiratory Problem Stated Complaint: [facility] Time Seen by Provider: 03/28/20 00:20 Source of Information: Reports: Patient, EMS History Limitations: Reports: No Limitations - History of Present Illness INITIAL COMMENTS - FREE TEXT/NARRATIVE: The patient presents by [facility] from home for generalized weakness, fever, and cough. The patient has not been feeling good for a few days. He has generalized weakness, not eating, fever, cough and shortness of breath. He was tested for COVID 19 and he found out yesterday that he is positive. For the past couple of days he has not gotten out of bed. He has diarrhea, nausea and vomiting also. He has no chest pain. He has no abdominal pain. He has a few relatives that were positive and they were around him a lot lately. Onset: Gradual Duration: Day(s): Severity: Moderate Improves with: Reports: None Worsens with: Reports: None Associated Symptoms: Reports: Cough, Fever/Chills, Nausea/Vomiting, Shortness of Breath. Denies: Chest Pain, Headaches Headache Pain Score (Numeric/FACES): 6 - Related Data Allergies Allergy/AdvReac Type Severity Reaction Status Date / Time No Known Allergies Allergy Verified 03/28/20 00:23 Home Meds: Home Meds Cholecalciferol (Vitamin D3) [Vitamin D3] 2 tab PO DAILY 12/09/18 [History] Fish Oil/[place]-3 Fatty Acids [Fish Oil 1,000 MG] 2 tab PO DAILY 12/09/18 [History] Lactobacillus Acidophilus [Acidophilus] 1 each PO DAILY 12/09/18 [History] Losartan [Cozaar] 25 mg PO DAILY 12/09/18 [History] Multivitamin [Daily Multiple Vitamin] 1 each PO DAILY 12/09/18 [History] Propranolol HCl [Inderal LA] 120 mg PO DAILY 12/09/18 [History] Pyridoxine HCl (Vitamin B6) [Pyridoxine HCl] 25 mg PO DAILY 12/09/18 [History] Rivaroxaban [Xarelto] 20 mg PO DAILY 12/09/18 [History] Vit A/C/E AC/Znox/Cupric Oxide [Eye Vitamin-Minerals Tablet] 1 tab PO DAILY 12/09/18 [History] atorvaSTATin Calcium [Atorvastatin Calcium] 40 mg PO BEDTIME 12/09/18 [History] levoFLOXacin [Levaquin] 250 mg PO DAILY #7 tab 12/09/18 [Rx] rOPINIRole HCl [Ropinirole ER] 1 mg PO BID 12/09/18 [History] Past Medical History HEENT History: Reports: Hard of Hearing, Impaired Vision Other HEENT History: wears glasses, hearing aids Cardiovascular History: Reports: High Cholesterol, Hypertension Respiratory History: Reports: PE Gastrointestinal History: Reports: Chronic Constipation, Diverticulosis Genitourinary History: Reports: Urinary Incontinence Musculoskeletal History: Reports: None Oncologic (Cancer) History: Reports: Prostate, Other (See Below) Other Oncologic History: skin cancer Dermatologic History: Reports: Other (See Below) Other Dermatologic History: skin cancer removed - Infectious Disease History Infectious Disease History: Reports: Novel Coronavirus - Past Surgical History HEENT Surgical History: Reports: None Cardiovascular Surgical History: Reports: None Respiratory Surgical History: Reports: None GI Surgical History: Reports: Appendectomy, Hernia Repair/Other Male Surgical History: Reports: Prostatectomy Musculoskeletal Surgical History: Reports: Knee Replacement Other Musculoskeletal Surgeries/Procedures:: bilateral knee replacements Dermatological Surgical History: Reports: Skin Biopsy Social & Family History - Family History Family Medical History: Noncontributory - Tobacco Use Smoking Status *Q: Unknown Ever Smoked Second Hand Smoke Exposure: No - Caffeine Use Caffeine Use: Reports: None - Recreational Drug Use Recreational Drug Use: No - Living Situation & Occupation Living situation: Reports: Occupation: Retired ED ROS GENERAL - Review of Systems Review Of Systems: See Below Constitutional: Reports: Fever, Chills, Malaise, Weakness, Fatigue HEENT: Reports: No Symptoms Respiratory: Reports: Shortness of Breath, Cough Cardiovascular: Reports: No Symptoms Endocrine: Reports: No Symptoms GI/Abdominal: Reports: Diarrhea, Nausea, Vomiting. Denies: Abdominal Pain : Reports: No Symptoms Musculoskeletal: Reports: No Symptoms ED EXAM, GENERAL - Physical Exam Exam: See Below Exam Limited By: No Limitations General Appearance: Alert, No Apparent Distress Ears: Normal External Exam Nose: Normal Inspection Head: Atraumatic, Normocephalic Neck: Normal Inspection Respiratory/Chest: No Respiratory Distress, Decreased Breath Sounds Cardiovascular: Regular Rate, Rhythm, No Edema, No Murmur GI/Abdominal: Soft, Non-Tender, No Organomegaly, No Mass Back Exam: Normal Inspection Course - Vital Signs Last Recorded V/S: Last Vital Signs Temp 97.6 F 03/28/20 00:19 Pulse 77 03/28/20 00:19 Resp 24 H 03/28/20 00:19 BP 138/71 03/28/20 00:19 Pulse Ox 88 L 03/28/20 00:19 - Orders/Labs/Meds Orders: Active Orders 24 hr Category Date Time Status Cardiac Monitoring [RC] . DIRECTED Care 03/28/20 00:42 Active Oxygen Therapy [RC] PRN Care 03/28/20 00:42 Active Peripheral IV Care [RC] . DIRECTED Care 03/28/20 00:43 Active Chest 1V Frontal [CR] Stat Exams 03/28/20 00:43 Taken CULTURE BLOOD [BC] Stat Lab 03/28/20 01:05 Received CULTURE BLOOD [BC] Stat Lab 03/28/20 01:12 Received Sodium Chloride 0.9% [Normal Saline] 1,000 ml Med 03/28/20 00:45 Active IV ASDIRECTED Sodium Chloride 0.9% [Saline Flush] Med 03/28/20 00:42 Active 10 ml FLUSH ASDIRECTED PRN Blood Culture x2 Reflex Set [OM.PC] Stat Oth 03/28/20 00:44 Ordered ED Antiemetic Medication Reflex [OM.PC] Stat Oth 03/28/20 00:42 Ordered Peripheral IV Insertion Adult [OM.PC] Stat Oth 03/28/20 00:42 Ordered Medication Orders Sodium Chloride (Normal Saline) 1,000 mls @ 125 mls/hr IV ASDIRECTED AMRIT Last Admin: 03/28/20 01:19 Dose: 125 mls/hr Documented by: RANDAL Sodium Chloride (Saline Flush) 10 ml FLUSH ASDIRECTED PRN PRN Reason: Keep Vein Open Last Admin: 03/28/20 01:21 Dose: 10 ml Documented by: RANDAL Labs: Laboratory Tests 03/28/20 03/28/20 03/28/20 Range/Units 01:05 01:05 01:05 WBC 5.14 (4.23-9.07) K/mm3 RBC 4.49 L (4.63-6.08) M/mm3 Hgb 13.4 L (13.7-17.5) gm/dl Hct 41.2 (40.1-51.0) % MCV 91.8 (79.0-92.2) fl MCH 29.8 (25.7-32.2) pg MCHC 32.5 (32.2-35.5) g/dl RDW Std Deviation 50.0 H (35.1-43.9) fL Plt Count 164 D (163-337) K/mm3 MPV 10.2 (9.4-12.3) fl Neut % (Auto) 62.8 (34.0-67.9) % Lymph % (Auto) 25.9 (21.8-53.1) % [place] % (Auto) 10.5 (5.3-12.2) % Eos % (Auto) 0.2 L (0.8-7.0) Baso % (Auto) 0.2 (0.1-1.2) % Neut # (Auto) 3.23 (1.78-5.38) K/mm3 Lymph # (Auto) 1.33 (1.32-3.57) K/mm3 [place] # (Auto) 0.54 (0.30-0.82) K/mm3 Eos # (Auto) 0.01 L (0.04-0.54) K/mm3 Baso # (Auto) 0.01 (0.01-0.08) K/mm3 PT 11.1 (9.7-11.7) SECONDS INR 1.04 D-Dimer, Quantitative 4.10 H (0.19-0.50) mg/L Puncture Site ABG pH (7.35-7.45) ABG pCO2 (35.0-45.0) mmHg ABG pO2 (80.0-100.0) mmHg ABG HCO3 (22.0-26.0) meq/L ABG O2 Saturation (96.0-97.0) % ABG Base Excess (-2-2.0) Syd Test O2 Delivery Device Oxygen Flow Rate Sodium 138 (136-145) mEq/L Potassium 4.0 (3.5-5.1) mEq/L Chloride 102 (98-107) mEq/L Carbon Dioxide 23 (21-32) mEq/L Anion Gap 17.0 H (5-15) BUN 24 H (7-18) mg/dL Creatinine 1.8 H (0.7-1.3) mg/dL Est Cr Clr Drug Dosing 30.42 mL/min Estimated GFR (MDRD) 36 (>60) mL/min BUN/Creatinine Ratio 13.3 L (14-18) Glucose 116 H (83-115) mg/dL Lactic Acid (0.4-2.0) mmol/L Calcium 8.4 L (8.5-10.1) mg/dL Ferritin (26-388) ng/ml Total Bilirubin 0.7 (0.2-1.0) mg/dL AST 41 H (15-37) U/L ALT 52 (16-63) U/L Alkaline Phosphatase 56 (46-116) U/L Lactate Dehydrogenase 221 (85-227) U/L C-Reactive Protein 2.1 H* (<1.0) mg/dL Total Protein 6.9 (6.4-8.2) g/dl Albumin 3.1 L (3.4-5.0) g/dl Globulin 3.8 gm/dL Albumin/Globulin Ratio 0.8 L (1-2) 03/28/20 03/28/20 03/28/20 Range/Units 01:05 01:05 02:05 WBC (4.23-9.07) K/mm3 RBC (4.63-6.08) M/mm3 Hgb (13.7-17.5) gm/dl Hct (40.1-51.0) % MCV (79.0-92.2) fl MCH (25.7-32.2) pg MCHC (32.2-35.5) g/dl RDW Std Deviation (35.1-43.9) fL Plt Count (163-337) K/mm3 MPV (9.4-12.3) fl Neut % (Auto) (34.0-67.9) % Lymph % (Auto) (21.8-53.1) % [place] % (Auto) (5.3-12.2) % Eos % (Auto) (0.8-7.0) Baso % (Auto) (0.1-1.2) % Neut # (Auto) (1.78-5.38) K/mm3 Lymph # (Auto) (1.32-3.57) K/mm3 [place] # (Auto) (0.30-0.82) K/mm3 Eos # (Auto) (0.04-0.54) K/mm3 Baso # (Auto) (0.01-0.08) K/mm3 PT (9.7-11.7) SECONDS INR D-Dimer, Quantitative (0.19-0.50) mg/L Puncture Site Lt radial ABG pH 7.39 (7.35-7.45) ABG pCO2 37.1 (35.0-45.0) mmHg ABG pO2 75.0 L (80.0-100.0) mmHg ABG HCO3 21.8 L (22.0-26.0) meq/L ABG O2 Saturation 94.4 L (96.0-97.0) % ABG Base Excess -2.2 L (-2-2.0) Syd Test Positive O2 Delivery Device Nasal cannula Oxygen Flow Rate 2.0 Sodium (136-145) mEq/L Potassium (3.5-5.1) mEq/L Chloride (98-107) mEq/L Carbon Dioxide (21-32) mEq/L Anion Gap (5-15) BUN (7-18) mg/dL Creatinine (0.7-1.3) mg/dL Est Cr Clr Drug Dosing mL/min Estimated GFR (MDRD) (>60) mL/min BUN/Creatinine Ratio (14-18) Glucose (83-115) mg/dL Lactic Acid 1.3 (0.4-2.0) mmol/L Calcium (8.5-10.1) mg/dL Ferritin 304 (26-388) ng/ml Total Bilirubin (0.2-1.0) mg/dL AST (15-37) U/L ALT (16-63) U/L Alkaline Phosphatase (46-116) U/L Lactate Dehydrogenase (85-227) U/L C-Reactive Protein (<1.0) mg/dL Total Protein (6.4-8.2) g/dl Albumin (3.4-5.0) g/dl Globulin gm/dL Albumin/Globulin Ratio (1-2) Meds: Medications Generic Name Dose Route Start Last Admin Trade Name Freq PRN Reason Stop Dose Admin Sodium Chloride 1,000 mls @ 125 mls/hr 03/28/20 00:45 03/28/20 01:19 Normal Saline IV 125 mls/hr ASDIRECTED AMRIT Administration Sodium Chloride 10 ml 03/28/20 00:42 03/28/20 01:21 Saline Flush FLUSH 10 ml ASDIRECTED PRN Administration Keep Vein Open Discontinued Medications Generic Name Dose Route Start Last Admin Trade Name Dickson PRN Reason Stop Dose Admin Ondansetron HCl 4 mg 03/28/20 00:42 03/28/20 01:19 Zofran IVPUSH 03/28/20 00:43 4 mg ONETIME ONE Administration - Re-Assessments/Exams Free Text/Narrative Re-Assessment/Exam: 03/28/20 01:33 I ordered an IV NS at 125mL/hr, zofran 4mg IV, labs, CXR, blood cultures and lactic acid. 03/28/20 06:40 His CXR does not show any infiltrates. His CBC looks good. His anion gap was elevated at 17. His creatinine was elevated at 1.8. His lactic acid is normal. His CRP is elevated at 2.1. His D-dimer is elevated at 3.41. 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 His pH is normal at 7.39. his pCO2 was normal at 37.1. His pO2 was low at 75. I bumped up his oxygen. There were no beds here and in [place]. [facility] was nearing capacity. I elected to hold him here a few hours. There should be a bed opening up this morning. I called Dr Gonzalez and he agreed to the admission. Departure - Departure Time of Disposition: 06:45 Disposition: Admitted As Inpatient 64 Condition: Poor Clinical Impression: COVID-19, Hypoxia, Renal insufficiency - Discharge Information Referrals: PCP,None [Primary Care Provider] - Forms: ED Department Discharge Sepsis Event Note (ED) - Evaluation Sepsis Screening Result: No Definite Risk - Focused Exam Vital Signs: Vital Signs Temp Pulse Resp BP Pulse Ox 03/28/20 00:19 97.6 F 77 24 H 138/71 88 L - My Orders Last 24 Hours: My Active Orders 03/28/20 00:42 Cardiac Monitoring [RC] . DIRECTED Oxygen Therapy [RC] PRN Sodium Chloride 0.9% [Saline Flush] 10 ml FLUSH ASDIRECTED PRN ED Antiemetic Medication Reflex [OM.PC] Stat Peripheral IV Insertion Adult [OM.PC] Stat 03/28/20 00:43 Peripheral IV Care [RC] . DIRECTED Chest 1V Frontal [CR] Stat 03/28/20 00:44 Blood Culture x2 Reflex Set [OM.PC] Stat 03/28/20 00:45 Sodium Chloride 0.9% [Normal Saline] 1,000 ml IV ASDIRECTED 03/28/20 01:05 CULTURE BLOOD [BC] Stat 03/28/20 01:12 CULTURE BLOOD [BC] Stat - Assessment/Plan Last 24 Hours: My Active Orders 03/28/20 00:42 Cardiac Monitoring [RC] . DIRECTED Oxygen Therapy [RC] PRN Sodium Chloride 0.9% [Saline Flush] 10 ml FLUSH ASDIRECTED PRN ED Antiemetic Medication Reflex [OM.PC] Stat Peripheral IV Insertion Adult [OM.PC] Stat 03/28/20 00:43 Peripheral IV Care [RC] . DIRECTED Chest 1V Frontal [CR] Stat 03/28/20 00:44 Blood Culture x2 Reflex Set [OM.PC] Stat 03/28/20 00:45 Sodium Chloride 0.9% [Normal Saline] 1,000 ml IV ASDIRECTED 03/28/20 01:05 CULTURE BLOOD [BC] Stat 03/28/20 01:12 CULTURE BLOOD [BC] Stat
--- NOTE | 2020-03-28 07:12 | CR ---
Chest: Portable view of the chest was obtained. Comparison: Prior chest x-ray of 02/23/20. Nodular density is noted within the right mid to lower lung. Mild interstitial fibrosis is seen which is stable. Left lung shows nothing acute. Heart size is normal. Tortuous thoracic aorta is seen. Bony structures are grossly intact. Impression: 1. Nodular density within the right mid to lower lung. Findings could represent area of atelectasis as well as minimal area of pneumonia. 2. Stable interstitial fibrosis. 3. Nothing acute is otherwise seen on portable chest x-ray. Diagnostic code #3 This report was dictated in MDT
[2020-03-28] MEDS ORDERED: Acetaminophen 325 MG Tab PO PRN (09:43)
[2020-03-28] MEDS ORDERED: Ondansetron 4 MG/2 ML SDV IV PRN (09:43)
[2020-03-28] MEDS ORDERED: Albuterol 0.083% 2.5 MG/3 ML Neb Soln NEB ONE (10:04)
[2020-03-28] MEDS: Azithromycin 500 MG in Sodium Chloride 0.9% 250 ML IV SCH (11:44)
[2020-03-28] MEDS: cefTRIAXone 2 GM in Sodium Chloride 0.9% 100 ML IV SCH (11:44)
--- NOTE | 2020-03-28 12:06 | PCM.HP.2 ---
H&P History of Present Illness - General Date of Service: 03/28/20 Admit Problem/Dx: Admission Diagnosis/Problem Admission Diagnosis/Problem Hypoxia Source of Information: Patient, Provider, RN History Limitations: Reports: No Limitations - History of Present Illness Initial Comments - Free Text/Narative: 84 year old male who presented to the ED with complaints of generalized weakness, fever and cough. The patient states that he had been with his extended family about two weeks ago in [place] and since that trip his daughter, son-in-law and grand daughter all tested postitive for COVID. The patient states that about a week and a half ago he developed diarrhea and then over the course of the last few days developed generalized weakness, severe body aches, chills, decreased appetite and shortness of breath. He still is able to taste and smell and denies headache or sore throat. States that he developed nausea over the last couple of days as well. He was tested for covid yesterday and did receive a call that he is positive. ER vital signs: Temp 97.6, pulse 77, resp 24, BP 138/71, Pulse Ox 88% on room air. On the medical floor, the patient is alert and oriented and answer all questions appropriately. He is ill appearing and is in moderate distress. In the emergency department, the patient was started on Normal saline at 125 ml/hr, zofran 4mg IV, chest xray, labs, blood cultures and lactic acid. 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 ABG 's on 2L O2 per NC: pH 7.39, pCO2 37.1, pO2 75.0, HCO3 21.8, base excess -2.2. His chest xray shows a nodular density within the right mid to lower lung. Findings could represent an area of atelectasis as well as minimal area of pneumonia, stable interstitial fibrosis, nothing acute is otherwise seen. Headache Pain Score (Numeric/FACES): 6 - Related Data Allergies/Adverse Reactions: Allergies Allergy/AdvReac Type Severity Reaction Status Date / Time No Known Allergies Allergy Verified 03/28/20 00:23 Home Medications: Home Meds Cholecalciferol (Vitamin D3) [Vitamin D3] 2 tab PO DAILY 12/09/18 [History] Fish Oil/[place]-3 Fatty Acids [Fish Oil 1,000 MG] 2 tab PO DAILY 12/09/18 [Histo ry] Lactobacillus Acidophilus [Acidophilus] 1 each PO DAILY 12/09/18 [History] Losartan [Cozaar] 25 mg PO DAILY 12/09/18 [History] Multivitamin [Daily Multiple Vitamin] 1 each PO DAILY 12/09/18 [History] Propranolol HCl [Inderal LA] 120 mg PO DAILY 12/09/18 [History] Pyridoxine HCl (Vitamin B6) [Pyridoxine HCl] 25 mg PO DAILY 12/09/18 [History] Rivaroxaban [Xarelto] 20 mg PO DAILY 12/09/18 [History] Vit A/C/E AC/Znox/Cupric Oxide [Eye Vitamin-Minerals Tablet] 1 tab PO DAILY 12/09/18 [History] atorvaSTATin Calcium [Atorvastatin Calcium] 40 mg PO BEDTIME 12/09/18 [History] levoFLOXacin [Levaquin] 250 mg PO DAILY #7 tab 12/09/18 [Rx] rOPINIRole HCl [Ropinirole ER] 1 mg PO BID 12/09/18 [History] Past Medical History HEENT History: Reports: Epistaxis, Hard of Hearing, Impaired Vision Other HEENT History: wears glasses, hearing aids Cardiovascular History: Reports: High Cholesterol, Hypertension Respiratory History: Reports: PE Gastrointestinal History: Reports: Chronic Constipation, Diverticulosis Genitourinary History: Reports: Urinary Incontinence Musculoskeletal History: Reports: None Oncologic (Cancer) History: Reports: Prostate, Other (See Below) Other Oncologic History: skin cancer Dermatologic History: Reports: Other (See Below) Other Dermatologic History: skin cancer removed - Infectious Disease History Infectious Disease History: Reports: Chicken Pox, Mumps, Novel Coronavirus - Past Surgical History HEENT Surgical History: Reports: None Cardiovascular Surgical History: Reports: None Respiratory Surgical History: Reports: None GI Surgical History: Reports: Appendectomy, Hernia Repair/Other Male Surgical History: Reports: Prostatectomy Musculoskeletal Surgical History: Reports: Knee Replacement Other Musculoskeletal Surgeries/Procedures:: bilateral knee replacements Dermatological Surgical History: Reports: Skin Biopsy Social & Family History - Family History Family Medical History: Noncontributory - Tobacco Use Smoking Status *Q: Former Smoker Years of Tobacco use: 1 Packs/Tins Daily: 0.5 Used Tobacco, but Quit: Yes Month/Year Tobacco Last Used: 1959 Second Hand Smoke Exposure: No - Caffeine Use Caffeine Use: Reports: None - Recreational Drug Use Recreational Drug Use: No - Living Situation & Occupation Living situation: Reports: Occupation: Retired H&P Review of Systems - Review of Systems: Review Of Systems: See Below General: Reports: Fever, Chills, Malaise, Weakness, Fatigue, Decreased Appetite HEENT: Reports: Headaches Pulmonary: Reports: Shortness of Breath, Wheezing, Cough Cardiovascular: Denies: Chest Pain, Palpitations, Dyspnea on Exertion, Edema Gastrointestinal: Reports: Diarrhea, Nausea Genitourinary: Reports: No Symptoms Musculoskeletal: Reports: No Symptoms Skin: Reports: No Symptoms Psychiatric: Reports: No Symptoms Neurological: Reports: No Symptoms Hematologic/Lymphatic: Reports: No Symptoms Immunologic: Reports: No Symptoms Exam - Exam Exam: See Below - Vital Signs Vital Signs: Last Vital Signs Temp 97.6 F 03/28/20 00:19 Pulse 77 03/28/20 00:19 Resp 24 H 03/28/20 00:19 BP 138/71 03/28/20 00:19 Pulse Ox 88 L 03/28/20 00:19 Weight: 184 lb 12.8 oz - Exam Quality Assessment: Supplemental Oxygen, DVT Prophylaxis (pt takes xarelto at h ome) General: Alert, Oriented, Moderate Distress HEENT: Conjunctiva Clear, Pupils Equal, Pupils Reactive. No: Hearing Intact (wears hearing aids), Mucosa Moist & [place] (dry) Neck: Supple, Trachea Midline. No: Lymphadenopathy Lungs: Crackles (bilateral bases), Wheezing (audible expiratory wheezes) Cardiovascular: Regular Rate, Regular Rhythm, Normal S1, Normal S2 GI/Abdominal Exam: Normal Bowel Sounds, Soft, Non-Tender, No Distention (Male) Exam: Deferred Rectal (Males) Exam: Deferred Back Exam: Normal Inspection, Full Range of Motion Extremities: Normal Inspection, Normal Range of Motion, Non-Tender, No Pedal Edema, Normal Capillary Refill Peripheral Pulses: 2+: Radial (L), Radial (R) Neuro Extensive - Mental Status: Alert, Oriented x3, Normal Mood/Affect, Normal Cognition, Memory Intact - Patient Data Lab Results Last 24 hrs: Laboratory Results - last 24 hr 03/28/20 03/28/20 03/28/20 Range/Units 01:05 01:05 01:05 WBC 5.14 (4.23-9.07) K/mm3 RBC 4.49 L (4.63-6.08) M/mm3 Hgb 13.4 L (13.7-17.5) gm/dl Hct 41.2 (40.1-51.0) % MCV 91.8 (79.0-92.2) fl MCH 29.8 (25.7-32.2) pg MCHC 32.5 (32.2-35.5) g/dl RDW Std Deviation 50.0 H (35.1-43.9) fL Plt Count 164 D (163-337) K/mm3 MPV 10.2 (9.4-12.3) fl Neut % (Auto) 62.8 (34.0-67.9) % Lymph % (Auto) 25.9 (21.8-53.1) % [place] % (Auto) 10.5 (5.3-12.2) % Eos % (Auto) 0.2 L (0.8-7.0) Baso % (Auto) 0.2 (0.1-1.2) % Neut # (Auto) 3.23 (1.78-5.38) K/mm3 Lymph # (Auto) 1.33 (1.32-3.57) K/mm3 [place] # (Auto) 0.54 (0.30-0.82) K/mm3 Eos # (Auto) 0.01 L (0.04-0.54) K/mm3 Baso # (Auto) 0.01 (0.01-0.08) K/mm3 PT 11.1 (9.7-11.7) SECONDS INR 1.04 D-Dimer, Quantitative 4.10 H (0.19-0.50) mg/L Puncture Site ABG pH (7.35-7.45) ABG pCO2 (35.0-45.0) mmHg ABG pO2 (80.0-100.0) mmHg ABG HCO3 (22.0-26.0) meq/L ABG O2 Saturation (96.0-97.0) % ABG Base Excess (-2-2.0) Syd Test O2 Delivery Device Oxygen Flow Rate Sodium 138 (136-145) mEq/L Potassium 4.0 (3.5-5.1) mEq/L Chloride 102 (98-107) mEq/L Carbon Dioxide 23 (21-32) mEq/L Anion Gap 17.0 H (5-15) BUN 24 H (7-18) mg/dL Creatinine 1.8 H (0.7-1.3) mg/dL Est Cr Clr Drug Dosing 30.42 mL/min Estimated GFR (MDRD) 36 (>60) mL/min BUN/Creatinine Ratio 13.3 L (14-18) Glucose 116 H (83-115) mg/dL Lactic Acid (0.4-2.0) mmol/L Calcium 8.4 L (8.5-10.1) mg/dL Ferritin (26-388) ng/ml Total Bilirubin 0.7 (0.2-1.0) mg/dL AST 41 H (15-37) U/L ALT 52 (16-63) U/L Alkaline Phosphatase 56 (46-116) U/L Lactate Dehydrogenase 221 (85-227) U/L C-Reactive Protein 2.1 H* (<1.0) mg/dL Total Protein 6.9 (6.4-8.2) g/dl Albumin 3.1 L (3.4-5.0) g/dl Globulin 3.8 gm/dL Albumin/Globulin Ratio 0.8 L (1-2) 03/28/20 03/28/20 03/28/20 Range/Units 01:05 01:05 02:05 WBC (4.23-9.07) K/mm3 RBC (4.63-6.08) M/mm3 Hgb (13.7-17.5) gm/dl Hct (40.1-51.0) % MCV (79.0-92.2) fl MCH (25.7-32.2) pg MCHC (32.2-35.5) g/dl RDW Std Deviation (35.1-43.9) fL Plt Count (163-337) K/mm3 MPV (9.4-12.3) fl Neut % (Auto) (34.0-67.9) % Lymph % (Auto) (21.8-53.1) % [place] % (Auto) (5.3-12.2) % Eos % (Auto) (0.8-7.0) Baso % (Auto) (0.1-1.2) % Neut # (Auto) (1.78-5.38) K/mm3 Lymph # (Auto) (1.32-3.57) K/mm3 [place] # (Auto) (0.30-0.82) K/mm3 Eos # (Auto) (0.04-0.54) K/mm3 Baso # (Auto) (0.01-0.08) K/mm3 PT (9.7-11.7) SECONDS INR D-Dimer, Quantitative (0.19-0.50) mg/L Puncture Site Lt radial ABG pH 7.39 (7.35-7.45) ABG pCO2 37.1 (35.0-45.0) mmHg ABG pO2 75.0 L (80.0-100.0) mmHg ABG HCO3 21.8 L (22.0-26.0) meq/L ABG O2 Saturation 94.4 L (96.0-97.0) % ABG Base Excess -2.2 L (-2-2.0) Syd Test Positive O2 Delivery Device Nasal cannula Oxygen Flow Rate 2.0 Sodium (136-145) mEq/L Potassium (3.5-5.1) mEq/L Chloride (98-107) mEq/L Carbon Dioxide (21-32) mEq/L Anion Gap (5-15) BUN (7-18) mg/dL Creatinine (0.7-1.3) mg/dL Est Cr Clr Drug Dosing mL/min Estimated GFR (MDRD) (>60) mL/min BUN/Creatinine Ratio (14-18) Glucose (83-115) mg/dL Lactic Acid 1.3 (0.4-2.0) mmol/L Calcium (8.5-10.1) mg/dL Ferritin 304 (26-388) ng/ml Total Bilirubin (0.2-1.0) mg/dL AST (15-37) U/L ALT (16-63) U/L Alkaline Phosphatase (46-116) U/L Lactate Dehydrogenase (85-227) U/L C-Reactive Protein (<1.0) mg/dL Total Protein (6.4-8.2) g/dl Albumin (3.4-5.0) g/dl Globulin gm/dL Albumin/Globulin Ratio (1-2) Result Diagrams: 03/28/20 01:05 03/28/20 01:05 Sepsis Event Note - Evaluation Sepsis Screening Result: No Definite Risk - Focused Exam Vital Signs: Vital Signs Temp Pulse Resp BP Pulse Ox 03/28/20 00:19 97.6 F 77 24 H 138/71 88 L - Problem List (1) COVID-19 SNOMED Code(s): 324785873 ICD Code: U07.1 - COVID-19 Status: Acute Priority: High Current Visit: Yes (2) Hypoxia SNOMED Code(s): 246432646 ICD Code: R09.02 - HYPOXEMIA Status: Acute Priority: High Current Visit: Yes (3) Renal insufficiency SNOMED Code(s): 687394889, 605630105 ICD Code: N28.9 - DISORDER OF KIDNEY AND URETER, UNSPECIFIED Status: Acute Priority: High Current Visit: Yes (4) Anorexia SNOMED Code(s): 65414767 ICD Code: R63.0 - ANOREXIA Status: Acute Priority: High Current Visit: Yes (5) Diarrhea SNOMED Code(s): 07023283 ICD Code: R19.7 - DIARRHEA, UNSPECIFIED Status: Acute Priority: High Current Visit: Yes Qualifiers: Diarrhea type: unspecified type Qualified Code(s): R19.7 - Diarrhea, unspecified (6) Generalized weakness SNOMED Code(s): 54696906 ICD Code: R53.1 - WEAKNESS Status: Acute Priority: High Current Visit: Yes Problem List Initiated/Reviewed/Updated: Yes Orders Last 24hrs: Active Orders 24 hr Category Date Time Status Patient Status [ADT] Routine ADT 03/28/20 06:46 Active Cardiac Monitoring [RC] . DIRECTED Care 03/28/20 00:42 Active Height and Weight [RC] DAILY Care 03/28/20 09:43 Active Intake and Output [RC] QSHIFT Care 03/28/20 09:44 Active Oxygen Therapy [RC] PRN Care 03/28/20 00:42 Active Pulse Oximetry [RC] PRN Care 03/28/20 09:44 Active RT Aerosol Therapy [RC] ASDIRECTED Care 03/28/20 09:51 Active RT Incentive Spirometry [RC] Q1HWA Care 03/28/20 10:00 Active Up With Assistance [RC] ASDIRECTED Care 03/28/20 09:43 Active VTE/DVT Education [RC] PER UNIT ROUTINE Care 03/28/20 09:43 Active Verify Patient Consent Obtain [RC] ASDIRECTED Care 03/28/20 10:42 Active Vital Signs [RC] Q4H Care 03/28/20 09:43 Active Consult to Case Management/Air Defense Specialist [CONS] Cons 03/28/20 10:00 Active Routine OT Evaluation and Treatment [CONS] Routine Cons 03/28/20 10:00 Active PT Evaluation and Treatment [CONS] Routine Cons 03/28/20 10:00 Active ABO/RH TYPE [BBK] Routine Lab 03/28/20 01:05 Received CBC WITH AUTO DIFF [HEME] DAILY Lab 03/29/20 05:11 Ordered CBC WITH AUTO DIFF [HEME] DAILY Lab 03/30/20 05:11 Ordered CBC WITH AUTO DIFF [HEME] DAILY Lab 03/31/20 05:11 Ordered CBC WITH AUTO DIFF [HEME] DAILY Lab 04/01/20 05:11 Ordered CBC WITH AUTO DIFF [HEME] DAILY Lab 04/02/20 05:11 Ordered COMPREHENSIVE METABOLIC PN,CMP [CHEM] DAILY Lab 03/29/20 05:11 Ordered COMPREHENSIVE METABOLIC PN,CMP [CHEM] DAILY Lab 03/30/20 05:11 Ordered COMPREHENSIVE METABOLIC PN,CMP [CHEM] DAILY Lab 03/31/20 05:11 Ordered COMPREHENSIVE METABOLIC PN,CMP [CHEM] DAILY Lab 04/01/20 05:11 Ordered COMPREHENSIVE METABOLIC PN,CMP [CHEM] DAILY Lab 04/02/20 05:11 Ordered CRP [C-REACTIVE PROTEIN] [CHEM] Q48H Lab 03/30/20 05:11 Ordered CRP [C-REACTIVE PROTEIN] [CHEM] Q48H Lab 04/01/20 05:11 Ordered CRP [C-REACTIVE PROTEIN] [CHEM] Q48H Lab 04/03/20 05:11 Ordered CULTURE BLOOD [BC] Stat Lab 03/28/20 01:05 Received CULTURE BLOOD [BC] Stat Lab 03/28/20 01:12 Received D-DIMER QUANTITATIVE [COAG] Q48H Lab 03/30/20 05:11 Ordered D-DIMER QUANTITATIVE [COAG] Q48H Lab 04/01/20 05:11 Ordered D-DIMER QUANTITATIVE [COAG] Q48H Lab 04/03/20 05:11 Ordered FRESH FROZEN PLASMA [BBK] Routine Lab 03/28/20 01:05 Received MAGNESIUM [CHEM] DAILY Lab 03/29/20 05:11 Ordered MAGNESIUM [CHEM] DAILY Lab 03/30/20 05:11 Ordered MAGNESIUM [CHEM] DAILY Lab 03/31/20 05:11 Ordered MAGNESIUM [CHEM] DAILY Lab 04/01/20 05:11 Ordered MAGNESIUM [CHEM] DAILY Lab 04/02/20 05:11 Ordered PHOSPHORUS [CHEM] Stat Lab 03/28/20 09:57 Ordered PROCALCITONIN [REF] Stat Lab 03/28/20 01:05 Received Acetaminophen [TylenoL] Med 03/28/20 09:43 Active 650 mg PO Q4H PRN Albuterol [Proventil Neb Soln] Med 03/28/20 09:43 Active 2.5 mg NEB Q2H PRN Azithromycin [Zithromax] 500 mg Med 03/28/20 11:00 Active Sodium Chloride 0.9% [Normal Saline] 250 ml IV Q24H Ondansetron [Zofran] Med 03/28/20 09:43 Active 4 mg IV Q4H PRN Sodium Chloride 0.9% [Normal Saline] 1,000 ml Med 03/28/20 00:45 Active IV ASDIRECTED Sodium Chloride 0.9% [Saline Flush] Med 03/28/20 00:42 Active 10 ml FLUSH ASDIRECTED PRN cefTRIAXone [Rocephin] 2 gm Med 03/28/20 11:30 Active Sodium Chloride 0.9% [Normal Saline] 100 ml IV Q24H Blood Culture x2 Reflex Set [OM.PC] Stat Oth 03/28/20 00:44 Ordered ED Antiemetic Medication Reflex [OM.PC] Stat Oth 03/28/20 00:42 Ordered Isolation [COMM] Routine Oth 03/28/20 10:03 Ordered Peripheral IV Insertion Adult [OM.PC] Stat Oth 03/28/20 00:42 Ordered Pulse Oximetry Continuous Monitoring [OM.PC] Routine Oth 03/28/20 09:40 Active Transfuse Fresh Frozen Plasma [COMM] Routine Oth 03/28/20 10:42 Ordered Resuscitation Status Routine Resus Stat 03/28/20 09:43 Ordered Medication Orders Acetaminophen (Tylenol) 650 mg PO Q4H PRN PRN Reason: Pain (Mild 1-3)/fever Albuterol (Proventil Neb Soln) 2.5 mg NEB Q2H PRN PRN Reason: Shortness Of Breath/wheezing Sodium Chloride (Normal Saline) 1,000 mls @ 125 mls/hr IV ASDIRECTED [facility] Last Admin: 03/28/20 09:54 Dose: 125 mls/hr Documented by: Infusion: 03/28/20 09:19 Dose: 125 mls/hr Documented by: Admin: 03/28/20 01:19 Dose: 125 mls/hr Documented by: RANDAL Ceftriaxone Sodium 2 gm/ (Sodium Chloride) 100 mls @ 200 mls/hr IV Q24H [facility] Azithromycin 500 mg/ Sodium (Chloride) 250 mls @ 250 mls/hr IV Q24H [facility] Stop: 03/30/20 11:59 Ondansetron HCl (Zofran) 4 mg IV Q4H PRN PRN Reason: Nausea/Vomiting Sodium Chloride (Saline Flush) 10 ml FLUSH ASDIRECTED PRN PRN Reason: Keep Vein Open Last Admin: 03/28/20 01:21 Dose: 10 ml Documented by: RANDAL Assessment/Plan Comment:: 03/28/20 ASSESSMENT COVID-19 Generalized weakness Diarrhea Anorexia -1.5 week history of diarrhea, malaise, nausea, fever, and chills -COVID positive test result yesterday -decreased appetite and po intake for the past week Plan * pt will be admitted to [facility] status with telemetry * gentle rehydration with IV fluids * monitor I&O, daily weights, vital signs * tylenol for fever control and comfort * zofran prn for nausea * director case to consult * PT/OT to evaluate and treat * 2 units convalescent plasma to be given when available. Consent has been signed. I spoke with the patient to provide information about convalescent plasma for him. I offered him the "Fact sheet for Patients and Parents/Caregivers" for COVID-19 convalescent plasma to read and review. I stated the therapy has been approved by an emergency use authorization (EUA) process and has not full been FDA reviewed or approved. I shared potential risks from the therapy including transmission of blood borne pathogens such as HIV and hepatitis C., allergic and transfusion related reactions, posttransfusion purpura. Additionally theoretical risks including a phenomenon called antibody-dependent enhancement of infection such as is seen in dengue or attenuation of an immune response that may make patients more susceptible to re-infection. I discussed there are other potential treatment options that are currently not FDA approved to treat COVID-19. Offered opportunity to ask questions and all questions were answered. The patient voiced understanding and agreed to proceed with treatment for him. * will consider Remdesivir if/when patient require O2 @ 2 liters. * CBC, CMP, Mg daily * D-dimer, CRP every 48 hours * awaiting blood cultures - Hypoxia -O2 saturations on room air in the ED at 75-88% -nodular density within the right mid to lower lung. Findings could represent area of atelectasis as well as minimal area of pneumonia Plan * Oxygen as needed. Currently at one liter. * Albuterol nebulizer Q 2 hours as needed for wheezing * IV Rocephin and Azithromycin * incentive spirometer Q1 hour while awake Renal insufficiency -1.5 week history of decreased po intake with diarrhea -Cre 1.8 -BUN 24 -GFR 36 Plan * avoid nephrotoxic medications * monitor kidney function * gentle rehydration with IV fluids VTE prophylaxis: pt takes Xarelto Code Status: FULL CODE Disposition: Admit to [facility] with telemetry. Length of stay will likely be greater than 96 hours. - Mortality Measure Prognosis:: Good
[2020-03-28] MEDS ORDERED: Sodium Chloride 0.9% 250 ML ONE ×2 (19:43→20:37)
[2020-03-28] MEDS ORDERED: ROPINIROLE HCL 1 MG PO SCH (21:00)
[2020-03-28] MEDS: Nortriptyline 25 MG Cap PO SCH (21:13)
[2020-03-29] MEDS: rOPINIRole 1 MG Tab PO SCH ×3 (00:07→20:21)
[2020-03-29] MEDS: Cholecalciferol (Vitamin D3) 25 MCG Tab PO SCH (09:03)
[2020-03-29] MEDS: Propranolol 60 MG Cap.ER PO SCH (09:04)
[2020-03-29] MEDS: Rivaroxaban 10 MG Tab PO SCH (09:06)
[2020-03-29] MEDS: Dexamethasone 10 MG/ML SDV IVPUSH SCH (09:41)
--- NOTE | 2020-03-29 10:19 | PCM.PN ---
- General Info Date of Service: 03/29/20 Admission Dx/Problem (Free Text): Admission Diagnosis/Problem Admission Diagnosis/Problem Hypoxia Functional Status: Reports: Pain Controlled. Denies: Tolerating Diet (poor appetite), Ambulating (very weak), Incentive Spirometry - Review of Systems General: Reports: Weakness, Fatigue, Malaise. Denies: Appetite (very poor appetite) HEENT: Reports: Headaches Pulmonary: Reports: Shortness of Breath, Cough. Denies: Sputum Cardiovascular: Denies: Chest Pain, Palpitations, Edema, Lightheadedness Gastrointestinal: Reports: Decreased Appetite. Denies: Abdominal Pain Genitourinary: Reports: No Symptoms Musculoskeletal: Reports: No Symptoms Skin: Reports: No Symptoms Neurological: Reports: No Symptoms Psychiatric: Reports: No Symptoms - Patient Data Vitals - Most Recent: Last Vital Signs Temp 99.1 F 03/29/20 07:19 Pulse 75 03/29/20 07:19 Resp 16 03/29/20 07:19 BP 118/64 03/29/20 07:19 Pulse Ox 95 03/29/20 09:29 Weight - Most Recent: 185 lb I&O - Last 24 Hours: Intake & Output 03/28/20 03/29/20 03/29/20 22:59 06:59 14:59 Intake Total 2751 597 Output Total 475 Balance 2276 597 Lab Results Last 24 Hours: Laboratory Results - last 24 hr 03/28/20 03/28/20 03/28/20 Range/Units 01:05 01:05 18:00 WBC (4.23-9.07) K/mm3 RBC (4.63-6.08) M/mm3 Hgb (13.7-17.5) gm/dl Hct (40.1-51.0) % MCV (79.0-92.2) fl MCH (25.7-32.2) pg MCHC (32.2-35.5) g/dl RDW Std Deviation (35.1-43.9) fL Plt Count (163-337) K/mm3 MPV (9.4-12.3) fl Neut % (Auto) (34.0-67.9) % Lymph % (Auto) (21.8-53.1) % Brooks % (Auto) (5.3-12.2) % Eos % (Auto) (0.8-7.0) Baso % (Auto) (0.1-1.2) % Neut # (Auto) (1.78-5.38) K/mm3 Lymph # (Auto) (1.32-3.57) K/mm3 Brooks # (Auto) (0.30-0.82) K/mm3 Eos # (Auto) (0.04-0.54) K/mm3 Baso # (Auto) (0.01-0.08) K/mm3 Sodium (136-145) mEq/L Potassium (3.5-5.1) mEq/L Chloride (98-107) mEq/L Carbon Dioxide (21-32) mEq/L Anion Gap (5-15) BUN (7-18) mg/dL Creatinine (0.7-1.3) mg/dL Est Cr Clr Drug Dosing mL/min Estimated GFR (MDRD) (>60) mL/min BUN/Creatinine Ratio (14-18) Glucose (83-115) mg/dL Calcium (8.5-10.1) mg/dL Phosphorus 3.0 (2.6-4.7) mg/dL Magnesium (1.8-2.4) mg/dl Total Bilirubin (0.2-1.0) mg/dL AST (15-37) U/L ALT (16-63) U/L Alkaline Phosphatase (46-116) U/L Total Protein (6.4-8.2) g/dl Albumin (3.4-5.0) g/dl Globulin gm/dL Albumin/Globulin Ratio (1-2) Procalcitonin <0.05 (<0.10) ng/mL Blood Type A POSITIVE 03/29/20 03/29/20 Range/Units 06:10 06:10 WBC 4.55 (4.23-9.07) K/mm3 RBC 4.40 L (4.63-6.08) M/mm3 Hgb 12.8 L (13.7-17.5) gm/dl Hct 40.7 (40.1-51.0) % MCV 92.5 H (79.0-92.2) fl MCH 29.1 (25.7-32.2) pg MCHC 31.4 L (32.2-35.5) g/dl RDW Std Deviation 49.6 H (35.1-43.9) fL Plt Count 152 L (163-337) K/mm3 MPV 9.8 (9.4-12.3) fl Neut % (Auto) 68.0 H (34.0-67.9) % Lymph % (Auto) 24.6 (21.8-53.1) % Brooks % (Auto) 5.9 (5.3-12.2) % Eos % (Auto) 0.9 (0.8-7.0) Baso % (Auto) 0.2 (0.1-1.2) % Neut # (Auto) 3.09 (1.78-5.38) K/mm3 Lymph # (Auto) 1.12 L (1.32-3.57) K/mm3 Brooks # (Auto) 0.27 L (0.30-0.82) K/mm3 Eos # (Auto) 0.04 (0.04-0.54) K/mm3 Baso # (Auto) 0.01 (0.01-0.08) K/mm3 Sodium 138 (136-145) mEq/L Potassium 4.0 (3.5-5.1) mEq/L Chloride 102 (98-107) mEq/L Carbon Dioxide 27 (21-32) mEq/L Anion Gap 13.0 (5-15) BUN 17 (7-18) mg/dL Creatinine 1.5 H (0.7-1.3) mg/dL Est Cr Clr Drug Dosing 36.50 mL/min Estimated GFR (MDRD) 44 (>60) mL/min BUN/Creatinine Ratio 11.3 L (14-18) Glucose 96 (83-115) mg/dL Calcium 8.7 (8.5-10.1) mg/dL Phosphorus (2.6-4.7) mg/dL Magnesium 2.0 (1.8-2.4) mg/dl Total Bilirubin 0.6 (0.2-1.0) mg/dL AST 32 (15-37) U/L ALT 45 (16-63) U/L Alkaline Phosphatase 54 (46-116) U/L Total Protein 6.7 (6.4-8.2) g/dl Albumin 3.0 L (3.4-5.0) g/dl Globulin 3.7 gm/dL Albumin/Globulin Ratio 0.8 L (1-2) Procalcitonin (<0.10) ng/mL Blood Type [place] Results Last 24 Hours: Microbiology 03/28/20 01:12 Aerobic Blood Culture - Preliminary Blood - Venous - Lab Draw NO GROWTH AFTER 1 DAY Anaerobic Blood Culture - Preliminary NO GROWTH AFTER 1 DAY 03/28/20 01:05 Aerobic Blood Culture - Preliminary Blood - Venous NO GROWTH AFTER 1 DAY Anaerobic Blood Culture - Preliminary NO GROWTH AFTER 1 DAY Med Orders - Current: Current Medications Acetaminophen (Tylenol) 650 mg PO Q4H PRN PRN Reason: Pain (Mild 1-3)/fever Albuterol (Proventil Neb Soln) 2.5 mg NEB Q2H PRN PRN Reason: Shortness Of Breath/wheezing Cholecalciferol (Vitamin D3) 50 mcg PO DAILY [facility] Last Admin: 03/29/20 09:03 Dose: 50 mcg Documented by: Dexamethasone (Dexamethasone) 6 mg IVPUSH Q24H [facility] Stop: 04/07/20 09:01 Last Admin: 03/29/20 09:41 Dose: 6 mg Documented by: Ceftriaxone Sodium 2 gm/ (Sodium Chloride) 100 mls @ 200 mls/hr IV Q24H [facility] Last Admin: 03/28/20 11:44 Dose: 200 mls/hr Documented by: Azithromycin 500 mg/ Sodium (Chloride) 250 mls @ 250 mls/hr IV Q24H [facility] Stop: 03/30/20 11:59 Last Admin: 03/28/20 11:44 Dose: 250 mls/hr Documented by: Remdesivir 100 mg/ Sodium (Chloride) 100 mls @ 100 mls/hr IV Q24H [facility] Stop: 04/02/20 09:59 Magnesium Hydroxide (Milk Of Magnesia) 30 ml PO DAILY PRN PRN Reason: Constipation Nortriptyline HCl (Nortriptyline) 25 mg PO BEDTIME [facility] Last Admin: 03/28/20 21:13 Dose: 25 mg Documented by: Ondansetron HCl (Zofran) 4 mg IV Q4H PRN PRN Reason: Nausea/Vomiting Propranolol HCl (Inderal La) 60 mg PO DAILY [facility] Last Admin: 03/29/20 09:04 Dose: 60 mg Documented by: Rivaroxaban (Xarelto) 20 mg PO DAILY [facility] Last Admin: 03/29/20 09:06 Dose: 20 mg Documented by: Ropinirole HCl (Requip) 1 mg PO BID [facility] Last Admin: 03/29/20 09:05 Dose: 1 mg Documented by: Simvastatin (Zocor) 20 mg PO BEDTIME [facility] Sodium Chloride (Saline Flush) 10 ml FLUSH ASDIRECTED PRN PRN Reason: Keep Vein Open Last Admin: 03/28/20 01:21 Dose: 10 ml Documented by: Discontinued Medications Albuterol (Proventil Neb Soln) 2.5 mg NEB ONETIME ONE Stop: 03/28/20 10:05 Last Admin: 03/28/20 10:18 Dose: 2.5 mg Documented by: Sodium Chloride (Normal Saline) 1,000 mls @ 125 mls/hr IV ASDIRECTED [facility] Last Admin: 03/28/20 09:54 Dose: 125 mls/hr Documented by: Sodium Chloride (Normal Saline) Confirm Administered Dose 250 mls @ as directed .ROUTE .STK-MED ONE Stop: 03/28/20 19:44 Last Admin: 03/28/20 20:07 Dose: 125 mls/hr Documented by: Sodium Chloride (Normal Saline) Confirm Administered Dose 250 mls @ as directed .ROUTE .STK-MED ONE Stop: 03/28/20 20:38 Last Admin: 03/28/20 21:12 Dose: 125 mls/hr Documented by: Remdesivir 200 mg/ Sodium (Chloride) 250 mls @ 250 mls/hr IV ONETIME ONE Stop: 03/29/20 09:59 Last Admin: 03/29/20 09:40 Dose: 250 mls/hr Documented by: Non-Formulary Medication (Ropinirole Hcl [Ropinirole Er]) 1 mg PO BID [facility] Last Admin: 03/28/20 23:04 Dose: Not Given Documented by: Ondansetron HCl (Zofran) 4 mg IVPUSH ONETIME ONE Stop: 03/28/20 00:43 Last Admin: 03/28/20 01:19 Dose: 4 mg Documented by: - Exam Quality Assessment: Supplemental Oxygen (2 liters per nasal cannula), DVT Prophylaxis (xarelto) General: Oriented, Cooperative, Moderate Distress, Lethargic Neck: No: Lymphadenopathy Lungs: Crackles (bilateral bases) Cardiovascular: Regular Rate, Regular Rhythm, No Murmurs GI/Abdominal Exam: Normal Bowel Sounds, Soft, Non-Tender, No Distention (Male) Exam: Deferred Back Exam: Normal Inspection, Full Range of Motion Extremities: Normal Inspection, Normal Range of Motion, No Pedal Edema Peripheral Pulses: 2+: Radial (L), Radial (R) Skin: Warm, Dry, Intact Psy/Mental Status: Normal Affect, Normal Mood Sepsis Event Note - Evaluation Sepsis Screening Result: No Definite Risk - Focused Exam Vital Signs: Vital Signs Temp Pulse Pulse Resp BP BP Pulse Ox 03/29/20 09:29 03/29/20 07:19 99.1 F 75 16 118/64 96 03/29/20 06:08 98.1 F 73 20 147/64 H 92 L 03/29/20 00:16 98.1 F 69 18 107/69 94 L 03/29/20 00:15 98.1 F 70 18 107/69 95 03/28/20 22:55 98.2 F 61 18 119/56 L 95 03/28/20 22:41 98.2 F 64 18 119/56 L 95 03/28/20 22:40 98.2 F 61 18 119/56 L 95 03/28/20 22:26 98.1 F 66 18 125/98 H 93 L 03/28/20 22:25 98.1 F 66 18 125/98 H 93 L Pulse Ox 03/29/20 09:29 95 03/29/20 07:19 03/29/20 06:08 03/29/20 00:16 03/29/20 00:15 03/28/20 22:55 03/28/20 22:41 03/28/20 22:40 03/28/20 22:26 03/28/20 22:25 - Problem List & Annotations (1) COVID-19 SNOMED Code(s): 138885115 Code(s): U07.1 - COVID-19 Status: Acute Priority: High Current Visit: Yes (2) Hypoxia SNOMED Code(s): 828251713 Code(s): R09.02 - HYPOXEMIA Status: Acute Priority: High Current Visit: Yes (3) Renal insufficiency SNOMED Code(s): 283734542, 178404442 Code(s): N28.9 - DISORDER OF KIDNEY AND URETER, UNSPECIFIED Status: Acute Priority: High Current Visit: Yes (4) Anorexia SNOMED Code(s): 18864990 Code(s): R63.0 - ANOREXIA Status: Acute Priority: High Current Visit: Yes (5) Diarrhea SNOMED Code(s): 14887221 Code(s): R19.7 - DIARRHEA, UNSPECIFIED Status: Acute Priority: High Current Visit: Yes Qualifiers: Diarrhea type: unspecified type Qualified Code(s): R19.7 - Diarrhea, unspecified (6) Generalized weakness SNOMED Code(s): 65624645 Code(s): R53.1 - WEAKNESS Status: Acute Priority: High Current Visit: Yes - Problem List Review Problem List Initiated/Reviewed/Updated: Yes - My Orders Last 24 Hours: My Active Orders 03/28/20 09:43 Height and Weight [RC] 04 Up With Assistance [RC] DAILY VTE/DVT Education [RC] DAILY Vital Signs [RC] 00,04,08,12,16,20 Acetaminophen [TylenoL] 650 mg PO Q4H PRN Albuterol [Proventil Neb Soln] 2.5 mg NEB Q2H PRN Ondansetron [Zofran] 4 mg IV Q4H PRN Resuscitation Status Routine 03/28/20 09:44 Intake and Output [RC] 04,16 Pulse Oximetry [RC] PRN 03/28/20 09:51 RT Aerosol Therapy [RC] ASDIRECTED 03/28/20 10:00 RT Incentive Spirometry [RC] Q1HWA Consult to Case Management/Engine Assembler [CONS] Routine OT Evaluation and Treatment [CONS] Routine PT Evaluation and Treatment [CONS] Routine 03/28/20 10:03 Isolation [COMM] Routine 03/28/20 10:42 Verify Patient Consent Obtain [RC] DAILY Transfuse Fresh Frozen Plasma [COMM] Routine 03/28/20 11:00 Azithromycin [Zithromax] 500 mg Sodium Chloride 0.9% [Normal Saline] 250 ml IV Q24H 03/28/20 11:30 cefTRIAXone [Rocephin] 2 gm Sodium Chloride 0.9% [Normal Saline] 100 ml IV Q24H 03/28/20 12:11 Consult to Director Of Software Engineering [CONS] Routine 03/28/20 Dinner Regular Diet [DIET] 03/29/20 09:00 dexAMETHasone [Dexamethasone] 6 mg IVPUSH Q24H 03/30/20 05:11 CBC WITH AUTO DIFF [HEME] DAILY COMPREHENSIVE METABOLIC PN,CMP [CHEM] DAILY CRP [C-REACTIVE PROTEIN] [CHEM] Q48H D-DIMER QUANTITATIVE [COAG] Q48H MAGNESIUM [CHEM] DAILY 03/30/20 09:00 Remdesivir (Eua) [Remdesivir (EUA)] 100 mg Sodium Chloride 0.9% [Normal Saline] 100 ml IV Q24H 03/31/20 05:11 CBC WITH AUTO DIFF [HEME] DAILY COMPREHENSIVE METABOLIC PN,CMP [CHEM] DAILY MAGNESIUM [CHEM] DAILY 04/01/20 05:11 CBC WITH AUTO DIFF [HEME] DAILY COMPREHENSIVE METABOLIC PN,CMP [CHEM] DAILY CRP [C-REACTIVE PROTEIN] [CHEM] Q48H D-DIMER QUANTITATIVE [COAG] Q48H MAGNESIUM [CHEM] DAILY 04/02/20 05:11 CBC WITH AUTO DIFF [HEME] DAILY COMPREHENSIVE METABOLIC PN,CMP [CHEM] DAILY MAGNESIUM [CHEM] DAILY 04/03/20 05:11 CRP [C-REACTIVE PROTEIN] [CHEM] Q48H D-DIMER QUANTITATIVE [COAG] Q48H - Assessment Assessment:: 03/29/20 ASSESSMENT COVID-19 Generalized weakness Diarrhea Anorexia -feeling much worse today. -very weak, bedrest today -decreased appetite Hypoxia -O2 now at 2L/nc, was 5 liters overnight -crackles bilateral posterior Renal insufficiency -1.5 week history of decreased po intake with diarrhea -Cre 1.5 -BUN 17 -GFR 44 Vital Signs: * T max 99.1, HR 75, BP 118/64, RR 16, 94% on 2L/NC Labs: * WBC 4.55 * HGB 12.8 * Na 138 * K+ 4.0 * Mg 2.0 * BUN 17 * Creat 1.5 * GFR 44 VTE prophylaxis: pt takes Xarelto Code Status: FULL CODE - Plan Plan:: 03/29/20 Plan: COVID-19 Generalized weakness Diarrhea Anorexia * MSP status with telemetry * monitor I&O, daily weights, vital signs * tylenol for fever control and comfort * zofran prn for nausea * poor po intake, senior java programmer analyst consulting * PT/OT to evaluate and treat * 2 units convalescent plasma given yesterday * Remdesivir today. I spoke with the patient to provide information about remdesivir treatment for himself. I offered him the "Patient and Caregiver EUA Remdesivir Fact Sheet" to read and review. I stated the drug has been approved for emergency use authorization (EUA) process and has not fully been FDA reviewed or approved. The patient meets EUA requirements. I shared that he drug may cause liver abnormalities and infusion related side effects. Additionally, other side effects are possible but not known as the drug has had limited studies. I discussed there are other potential treatment options that are currently not FDA approved to treat COVID-19. Offered opportunity to ask questions and all questions were answered. The patient voiced understanding and agreed to proceed with treatment for himself. * Decadron today * awaiting blood cultures Hypoxia * Oxygen as needed. * Albuterol nebulizer Q 2 hours as needed for wheezing * IV Rocephin and Azithromycin * incentive spirometer Q1 hour while awake Renal insufficiency * avoid nephrotoxic medications * monitor kidney function Disposition: Admit to [facility] with telemetry. Anticipate that the patient will be here greater than 96 hours due to starting Remdesivir and Decadron.
[2020-03-29] MEDS: cefTRIAXone 2 GM in Sodium Chloride 0.9% 100 ML IV SCH (11:24)
[2020-03-29] MEDS: Azithromycin 500 MG in Sodium Chloride 0.9% 250 ML IV SCH (11:25)
[2020-03-29] MEDS: Magnesium Hydroxide 400 MG/5 ML Susp 30 ML Cup PO PRN (16:07)
[2020-03-29] MEDS: Simvastatin 20 MG Tab PO SCH (20:21)
[2020-03-29] MEDS: Nortriptyline 25 MG Cap PO SCH (20:21)
--- NOTE | 2020-03-30 08:16 | PCM.PN ---
- General Info Date of Service: 03/30/20 Admission Dx/Problem (Free Text): Admission Diagnosis/Problem Admission Diagnosis/Problem Hypoxia Subjective Update: Patient states that he is feeling better. He has had a decrease in oxygen need over the last 24 hours. Patient states he has been on Xarelto because of a previous history of blood clots. He does often miss doses because of nosebleeds. He missed 2 or 3 days prior to admission. Appetite has improved. Functional Status: Reports: Pain Controlled - Review of Systems General: Reports: No Symptoms HEENT: Reports: No Symptoms Pulmonary: Reports: No Symptoms Cardiovascular: Reports: No Symptoms Gastrointestinal: Reports: No Symptoms Musculoskeletal: Reports: No Symptoms - Patient Data Vitals - Most Recent: Last Vital Signs Temp 98.4 F 03/30/20 04:21 Pulse 54 L 03/30/20 04:21 Resp 20 03/30/20 04:21 BP 114/56 L 03/30/20 04:21 Pulse Ox 94 L 03/30/20 04:21 Weight - Most Recent: 83.597 kg I&O - Last 24 Hours: Intake & Output 03/29/20 03/30/20 03/30/20 22:59 06:59 14:59 Intake Total 1380 400 Output Total 650 Balance 1380 -250 Imaging Impressions - Last 24 Hours: CT angiogram of the chest: 1. Findings of pulmonary embolism. Filling defects are seen within the distal right main pulmonary artery extending into the segmental branches of the right and upper lobe pulmonary arteries. Subsegmental pulmonary emboli are noted within the right upper lung and right lower lung. No left-sided pulmonary emboli are appreciated. 2. Patchy areas of increased density on both sides of the chest. Findings could represent pneumonia which could be bacterial or viral. 3. No additional abnormality is appreciated. Lab Results Last 24 Hours: Laboratory Results - last 24 hr 03/30/20 03/30/20 03/30/20 Range/Units 06:15 06:15 06:15 WBC 3.66 L (4.23-9.07) K/mm3 RBC 4.04 L (4.63-6.08) M/mm3 Hgb 11.8 L (13.7-17.5) gm/dl Hct 36.8 L (40.1-51.0) % MCV 91.1 (79.0-92.2) fl MCH 29.2 (25.7-32.2) pg MCHC 32.1 L (32.2-35.5) g/dl RDW Std Deviation 47.7 H (35.1-43.9) fL Plt Count 145 L (163-337) K/mm3 MPV 10.1 (9.4-12.3) fl Neut % (Auto) 57.1 (34.0-67.9) % Lymph % (Auto) 30.1 (21.8-53.1) % [place] % (Auto) 11.5 (5.3-12.2) % Eos % (Auto) 0.5 L (0.8-7.0) Baso % (Auto) 0.3 (0.1-1.2) % Neut # (Auto) 2.09 (1.78-5.38) K/mm3 Lymph # (Auto) 1.10 L (1.32-3.57) K/mm3 [place] # (Auto) 0.42 (0.30-0.82) K/mm3 Eos # (Auto) 0.02 L (0.04-0.54) K/mm3 Baso # (Auto) 0.01 (0.01-0.08) K/mm3 D-Dimer, Quantitative 23.40 H (0.19-0.50) mg/L Sodium 138 (136-145) mEq/L Potassium 4.0 (3.5-5.1) mEq/L Chloride 103 (98-107) mEq/L Carbon Dioxide 24 (21-32) mEq/L Anion Gap 15.0 (5-15) BUN 19 H (7-18) mg/dL Creatinine 1.2 (0.7-1.3) mg/dL Est Cr Clr Drug Dosing 45.63 mL/min Estimated GFR (MDRD) 57 (>60) mL/min BUN/Creatinine Ratio 15.8 (14-18) Glucose 115 (83-115) mg/dL Calcium 8.5 (8.5-10.1) mg/dL Magnesium 2.1 (1.8-2.4) mg/dl Total Bilirubin 0.4 (0.2-1.0) mg/dL AST 28 (15-37) U/L ALT 36 (16-63) U/L Alkaline Phosphatase 48 (46-116) U/L C-Reactive Protein 4.6 H* (<1.0) mg/dL Total Protein 5.9 L (6.4-8.2) g/dl Albumin 2.4 L (3.4-5.0) g/dl Globulin 3.5 gm/dL Albumin/Globulin Ratio 0.7 L (1-2) 03/30/20 Range/Units 07:23 WBC (4.23-9.07) K/mm3 RBC (4.63-6.08) M/mm3 Hgb (13.7-17.5) gm/dl Hct (40.1-51.0) % MCV (79.0-92.2) fl MCH (25.7-32.2) pg MCHC (32.2-35.5) g/dl RDW Std Deviation (35.1-43.9) fL Plt Count (163-337) K/mm3 MPV (9.4-12.3) fl Neut % (Auto) (34.0-67.9) % Lymph % (Auto) (21.8-53.1) % [place] % (Auto) (5.3-12.2) % Eos % (Auto) (0.8-7.0) Baso % (Auto) (0.1-1.2) % Neut # (Auto) (1.78-5.38) K/mm3 Lymph # (Auto) (1.32-3.57) K/mm3 [place] # (Auto) (0.30-0.82) K/mm3 Eos # (Auto) (0.04-0.54) K/mm3 Baso # (Auto) (0.01-0.08) K/mm3 D-Dimer, Quantitative 21.41 H (0.19-0.50) mg/L Sodium (136-145) mEq/L Potassium (3.5-5.1) mEq/L Chloride (98-107) mEq/L Carbon Dioxide (21-32) mEq/L Anion Gap (5-15) BUN (7-18) mg/dL Creatinine (0.7-1.3) mg/dL Est Cr Clr Drug Dosing mL/min Estimated GFR (MDRD) (>60) mL/min BUN/Creatinine Ratio (14-18) Glucose (83-115) mg/dL Calcium (8.5-10.1) mg/dL Magnesium (1.8-2.4) mg/dl Total Bilirubin (0.2-1.0) mg/dL AST (15-37) U/L ALT (16-63) U/L Alkaline Phosphatase (46-116) U/L C-Reactive Protein (<1.0) mg/dL Total Protein (6.4-8.2) g/dl Albumin (3.4-5.0) g/dl Globulin gm/dL Albumin/Globulin Ratio (1-2) [place] Results Last 24 Hours: Microbiology 03/28/20 01:12 Aerobic Blood Culture - Preliminary Blood - Venous - Lab Draw NO GROWTH AFTER 2 DAYS Anaerobic Blood Culture - Preliminary NO GROWTH AFTER 2 DAYS 03/28/20 01:05 Aerobic Blood Culture - Preliminary Blood - Venous NO GROWTH AFTER 2 DAYS Anaerobic Blood Culture - Preliminary NO GROWTH AFTER 2 DAYS Med Orders - Current: Current Medications Acetaminophen (Tylenol) 650 mg PO Q4H PRN PRN Reason: Pain (Mild 1-3)/fever Albuterol (Proventil Neb Soln) 2.5 mg NEB Q2H PRN PRN Reason: Shortness Of Breath/wheezing Cholecalciferol (Vitamin D3) 50 mcg PO DAILY [facility] Last Admin: 03/29/20 09:03 Dose: 50 mcg Documented by: Dexamethasone (Dexamethasone) 6 mg IVPUSH Q24H [facility] Stop: 04/07/20 09:01 Last Admin: 03/29/20 09:41 Dose: 6 mg Documented by: Ceftriaxone Sodium 2 gm/ (Sodium Chloride) 100 mls @ 200 mls/hr IV Q24H [facility] Last Admin: 03/29/20 11:24 Dose: 200 mls/hr Documented by: Azithromycin 500 mg/ Sodium (Chloride) 250 mls @ 250 mls/hr IV Q24H [facility] Stop: 03/30/20 11:59 Last Admin: 03/29/20 11:25 Dose: 250 mls/hr Documented by: Remdesivir 100 mg/ Sodium (Chloride) 100 mls @ 100 mls/hr IV Q24H [facility] Stop: 04/02/20 09:59 Magnesium Hydroxide (Milk Of Magnesia) 30 ml PO DAILY PRN PRN Reason: Constipation Last Admin: 03/29/20 16:07 Dose: 30 ml Documented by: Nortriptyline HCl (Nortriptyline) 25 mg PO BEDTIME [facility] Last Admin: 03/29/20 20:21 Dose: 25 mg Documented by: Ondansetron HCl (Zofran) 4 mg IV Q4H PRN PRN Reason: Nausea/Vomiting Propranolol HCl (Inderal La) 60 mg PO DAILY [facility] Last Admin: 03/29/20 09:04 Dose: 60 mg Documented by: Rivaroxaban (Xarelto) 20 mg PO DAILY [facility] Last Admin: 03/29/20 09:06 Dose: 20 mg Documented by: Ropinirole HCl (Requip) 1 mg PO BID [facility] Last Admin: 03/29/20 20:21 Dose: 1 mg Documented by: Simvastatin (Zocor) 20 mg PO BEDTIME [facility] Last Admin: 03/29/20 20:21 Dose: 20 mg Documented by: Sodium Chloride (Saline Flush) 10 ml FLUSH ASDIRECTED PRN PRN Reason: Keep Vein Open Last Admin: 03/28/20 01:21 Dose: 10 ml Documented by: Discontinued Medications Albuterol (Proventil Neb Soln) 2.5 mg NEB ONETIME ONE Stop: 03/28/20 10:05 Last Admin: 03/28/20 10:18 Dose: 2.5 mg Documented by: Sodium Chloride (Normal Saline) 1,000 mls @ 125 mls/hr IV ASDIRECTED [facility] Last Admin: 03/28/20 09:54 Dose: 125 mls/hr Documented by: Sodium Chloride (Normal Saline) Confirm Administered Dose 250 mls @ as directed .ROUTE .STK-MED ONE Stop: 03/28/20 19:44 Last Admin: 03/28/20 20:07 Dose: 125 mls/hr Documented by: Sodium Chloride (Normal Saline) Confirm Administered Dose 250 mls @ as directed .ROUTE .STK-MED ONE Stop: 03/28/20 20:38 Last Admin: 03/28/20 21:12 Dose: 125 mls/hr Documented by: Remdesivir 200 mg/ Sodium (Chloride) 250 mls @ 250 mls/hr IV ONETIME ONE Stop: 03/29/20 09:59 Last Admin: 03/29/20 09:40 Dose: 250 mls/hr Documented by: Non-Formulary Medication (Ropinirole Hcl [Ropinirole Er]) 1 mg PO BID [facility] Last Admin: 03/28/20 23:04 Dose: Not Given Documented by: Ondansetron HCl (Zofran) 4 mg IVPUSH ONETIME ONE Stop: 03/28/20 00:43 Last Admin: 03/28/20 01:19 Dose: 4 mg Documented by: - Exam Quality Assessment: Supplemental Oxygen General: Alert, Oriented HEENT: Pupils Equal, Mucous Membr. Moist/[place] Neck: Supple Lungs: Normal Respiratory Effort, Rales (Bibasilar) Cardiovascular: Regular Rate, Regular Rhythm GI/Abdominal Exam: Normal Bowel Sounds, Soft, Non-Tender, No Distention Extremities: Normal Inspection, Normal Range of Motion, No Pedal Edema, Normal Capillary Refill Skin: Warm, Dry, Intact Neurological: No New Focal Deficit Psy/Mental Status: Alert, Normal Affect, Normal Mood Sepsis Event Note - Evaluation Sepsis Screening Result: No Definite Risk - Focused Exam Vital Signs: Vital Signs Temp Pulse Resp BP Pulse Ox 03/30/20 04:21 98.4 F 54 L 20 114/56 L 94 L 03/29/20 20:25 98.1 F 58 L 16 101/61 92 L - Problem List & Annotations (1) COVID-19 SNOMED Code(s): 277231379 Code(s): U07.1 - COVID-19 Status: Acute Priority: High Current Visit: Yes (2) Generalized weakness SNOMED Code(s): 44905493 Code(s): R53.1 - WEAKNESS Status: Acute Priority: High Current Visit: Yes (3) Hypoxemia SNOMED Code(s): 046556252 Code(s): R09.02 - HYPOXEMIA Status: Acute Priority: High Current Visit: Yes (4) Renal insufficiency SNOMED Code(s): 270331588, 577499844 Code(s): N28.9 - DISORDER OF KIDNEY AND URETER, UNSPECIFIED Status: Acute Priority: High Current Visit: Yes (5) PE, Pulmonary embolism SNOMED Code(s): 49554601 Code(s): I26.99 - OTHER PULMONARY EMBOLISM WITHOUT ACUTE COR PULMONALE Status: Acute Current Visit: No - Problem List Review Problem List Initiated/Reviewed/Updated: Yes - My Orders Last 24 Hours: My Active Orders 03/29/20 09:00 Cholecalciferol (Vitamin D3) [Vitamin D3] 50 mcg PO DAILY Propranolol [Inderal LA] 60 mg PO DAILY Rivaroxaban [Xarelto] 20 mg PO DAILY 03/29/20 21:00 Simvastatin [Zocor] 20 mg PO BEDTIME - Assessment Assessment:: 03/29/20 ASSESSMENT COVID-19 Generalized weakness Diarrhea Anorexia -feeling much worse today. -very weak, bedrest today -decreased appetite Hypoxia -O2 now at 2L/nc, was 5 liters overnight -crackles bilateral posterior Renal insufficiency -1.5 week history of decreased po intake with diarrhea -Cre 1.5 -BUN 17 -GFR 44 Vital Signs: * T max 99.1, HR 75, BP 118/64, RR 16, 94% on 2L/NC Labs: * WBC 4.55 * HGB 12.8 * Na 138 * K+ 4.0 * Mg 2.0 * BUN 17 * Creat 1.5 * GFR 44 03/30/2020 COVID-19 pneumonia with secondary hypoxemia * CT angiogram of the chest showed patchy areas of increased density on both sides of the chest consistent with pneumonia. This could be either bacterial or viral. * Hypoxemia is certainly better today. Oxygen saturations are in the low 90s on room air. * Currently on remdesivir, Rocephin, azithromycin, and dexamethasone * Received 2 units of convalescent plasma * WBC 3.66, C-reactive protein 4.6 Pulmonary embolism * Patient was noncompliant with his Xarelto for 3 days. * Patient also missed the morning of the when he was transferred from the emergency department to the medical floor. * D-dimer increased from 4-23. * Patient's hypoxemia is actually improved today after restarting Xarelto yesterday. Generalized weakness with diarrhea and anorexia * Significant improvement in all 3 conditions. 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 * Pulse ox already improved. Acute on chronic renal insufficiency-improved * avoid nephrotoxic medications * monitor kidney function Disposition: Length of stay greater than 96 hours due to hypoxemia, COVID-19, pulmonary embolism and starting Remdesivir and Decadron.
[2020-03-30] MEDS: rOPINIRole 1 MG Tab PO SCH ×2 (08:31→21:02)
[2020-03-30] MEDS: Cholecalciferol (Vitamin D3) 25 MCG Tab PO SCH (08:31)
[2020-03-30] MEDS: Rivaroxaban 10 MG Tab PO SCH (08:32)
[2020-03-30] MEDS: Propranolol 60 MG Cap.ER PO SCH (08:35)
[2020-03-30] MEDS: Dexamethasone 10 MG/ML SDV IVPUSH SCH (08:41)
[2020-03-30] MEDS ORDERED: Sodium Chloride 0.9% 10 ML Syringe FLUSH PRN (09:01)
[2020-03-30] MEDS ORDERED: Iopamidol 755 Mg/ML 100 ML Bottle IVPUSH ONE (09:01)
[2020-03-30] MEDS: REMDESIVIR (EUA) 100 MG in Sodium Chloride 0.9% 100 ML IV SCH (09:03)
[2020-03-30] MEDS ORDERED: Sodium Chloride 0.9% 1,000 ML IV SCH (09:15)
--- NOTE | 2020-03-30 10:43 | CT ---
CT chest Technique: Multiple axial sections were obtained through the chest. Intravenous contrast was utilized. Study has been performed as a pulmonary angiogram protocol. Findings: Filling defects are seen within the distal right main pulmonary artery extending into the segmental branches of the right and upper lobe pulmonary arteries. Subsegmental pulmonary emboli are noted within the right upper lung and right lower lung. No left-sided pulmonary emboli are appreciated. Aorta shows no aneurysm. Atherosclerotic calcification is seen within the aorta. Small mediastinal lymph nodes are seen which are believed to be within normal limits. No pericardial thickening is seen. No evidence of right heart strain is noted. Parapelvic cysts seen within the right kidney. Patchy areas of increased density are seen on both sides of the chest worse within the right upper lung. Coarse lung markings are noted within both lung bases. Impression: 1. Findings of pulmonary embolism. 2. Patchy areas of increased density on both sides of the chest. Findings could represent pneumonia which could be bacterial or viral. 3. No additional abnormality is appreciated. Diagnostic code #5 This report was dictated in MDT
[2020-03-30] MEDS: Azithromycin 500 MG in Sodium Chloride 0.9% 250 ML IV SCH (11:55)
[2020-03-30] MEDS: cefTRIAXone 2 GM in Sodium Chloride 0.9% 100 ML IV SCH (11:55)
[2020-03-30] MEDS: Nortriptyline 25 MG Cap PO SCH (21:03)
[2020-03-30] MEDS: Simvastatin 20 MG Tab PO SCH (21:03)
--- NOTE | 2020-03-31 08:20 | PCM.PN ---
- General Info Date of Service: 03/31/20 Admission Dx/Problem (Free Text): Admission Diagnosis/Problem Admission Diagnosis/Problem Hypoxia Subjective Update: Patient continues to improve. He is currently off oxygen and saturations are in the low 90s. His appetite has improved. Functional Status: Reports: Pain Controlled - Review of Systems General: Reports: No Symptoms HEENT: Reports: No Symptoms Pulmonary: Reports: Cough Cardiovascular: Reports: No Symptoms Musculoskeletal: Reports: No Symptoms Skin: Reports: No Symptoms Neurological: Reports: No Symptoms Psychiatric: Reports: No Symptoms - Patient Data Vitals - Most Recent: Last Vital Signs Temp 97.2 F 03/31/20 04:31 Pulse 58 L 03/31/20 04:31 Resp 20 03/31/20 04:31 BP 119/74 03/31/20 04:31 Pulse Ox 94 L 03/31/20 04:31 Weight - Most Recent: 83.37 kg I&O - Last 24 Hours: Intake & Output 03/30/20 03/31/20 03/31/20 22:59 06:59 14:59 Intake Total 1120 300 Output Total 600 700 Balance 520 -400 Lab Results Last 24 Hours: Laboratory Results - last 24 hr 03/31/20 03/31/20 Range/Units 06:13 06:13 WBC 5.50 (4.23-9.07) K/mm3 RBC 4.16 L (4.63-6.08) M/mm3 Hgb 12.1 L (13.7-17.5) gm/dl Hct 37.4 L (40.1-51.0) % MCV 89.9 (79.0-92.2) fl MCH 29.1 (25.7-32.2) pg MCHC 32.4 (32.2-35.5) g/dl RDW Std Deviation 45.0 H (35.1-43.9) fL Plt Count 163 (163-337) K/mm3 MPV 10.4 (9.4-12.3) fl Neut % (Auto) 68.6 H (34.0-67.9) % Lymph % (Auto) 21.8 (21.8-53.1) % [place] % (Auto) 8.0 (5.3-12.2) % Eos % (Auto) 0.5 L (0.8-7.0) Baso % (Auto) 0.2 (0.1-1.2) % Neut # (Auto) 3.77 (1.78-5.38) K/mm3 Lymph # (Auto) 1.20 L (1.32-3.57) K/mm3 [place] # (Auto) 0.44 (0.30-0.82) K/mm3 Eos # (Auto) 0.03 L (0.04-0.54) K/mm3 Baso # (Auto) 0.01 (0.01-0.08) K/mm3 Sodium 138 (136-145) mEq/L Potassium 3.6 (3.5-5.1) mEq/L Chloride 103 (98-107) mEq/L Carbon Dioxide 23 (21-32) mEq/L Anion Gap 15.6 H (5-15) BUN 26 H (7-18) mg/dL Creatinine 1.1 (0.7-1.3) mg/dL Est Cr Clr Drug Dosing 49.77 mL/min Estimated GFR (MDRD) > 60 (>60) mL/min BUN/Creatinine Ratio 23.6 H (14-18) Glucose 113 (83-115) mg/dL Calcium 8.4 L (8.5-10.1) mg/dL Magnesium 2.1 (1.8-2.4) mg/dl Total Bilirubin 0.4 (0.2-1.0) mg/dL AST 24 (15-37) U/L ALT 32 (16-63) U/L Alkaline Phosphatase 44 L (46-116) U/L Total Protein 5.9 L (6.4-8.2) g/dl Albumin 2.5 L (3.4-5.0) g/dl Globulin 3.4 gm/dL Albumin/Globulin Ratio 0.7 L (1-2) [place] Results Last 24 Hours: Microbiology 03/28/20 01:12 Aerobic Blood Culture - Preliminary Blood - Venous - Lab Draw NO GROWTH AFTER 3 DAYS Anaerobic Blood Culture - Preliminary NO GROWTH AFTER 3 DAYS 03/28/20 01:05 Aerobic Blood Culture - Preliminary Blood - Venous NO GROWTH AFTER 3 DAYS Anaerobic Blood Culture - Preliminary NO GROWTH AFTER 3 DAYS Med Orders - Current: Current Medications Acetaminophen (Tylenol) 650 mg PO Q4H PRN PRN Reason: Pain (Mild 1-3)/fever Last Admin: 03/30/20 21:03 Dose: 650 mg Documented by: Albuterol (Proventil Neb Soln) 2.5 mg NEB Q2H PRN PRN Reason: Shortness Of Breath/wheezing Cholecalciferol (Vitamin D3) 50 mcg PO DAILY [facility] Last Admin: 03/30/20 08:31 Dose: 50 mcg Documented by: Dexamethasone (Dexamethasone) 6 mg IVPUSH Q24H [facility] Stop: 04/07/20 09:01 Last Admin: 03/30/20 08:41 Dose: 6 mg Documented by: Ceftriaxone Sodium 2 gm/ (Sodium Chloride) 100 mls @ 200 mls/hr IV Q24H [facility] Last Admin: 03/30/20 11:55 Dose: 200 mls/hr Documented by: Remdesivir 100 mg/ Sodium (Chloride) 100 mls @ 100 mls/hr IV Q24H [facility] Stop: 04/02/20 09:59 Last Admin: 03/30/20 09:03 Dose: 100 mls/hr Documented by: Magnesium Hydroxide (Milk Of Magnesia) 30 ml PO DAILY PRN PRN Reason: Constipation Last Admin: 03/29/20 16:07 Dose: 30 ml Documented by: Nortriptyline HCl (Nortriptyline) 25 mg PO BEDTIME [facility] Last Admin: 03/30/20 21:03 Dose: 25 mg Documented by: Ondansetron HCl (Zofran) 4 mg IV Q4H PRN PRN Reason: Nausea/Vomiting Propranolol HCl (Inderal La) 60 mg PO DAILY [facility] Last Admin: 03/30/20 08:35 Dose: 60 mg Documented by: Rivaroxaban (Xarelto) 20 mg PO DAILY [facility] Last Admin: 03/30/20 08:32 Dose: 20 mg Documented by: Ropinirole HCl (Requip) 1 mg PO BID [facility] Last Admin: 03/30/20 21:02 Dose: 1 mg Documented by: Simvastatin (Zocor) 20 mg PO BEDTIME [facility] Last Admin: 03/30/20 21:03 Dose: 20 mg Documented by: Sodium Chloride (Saline Flush) 10 ml FLUSH ASDIRECTED PRN PRN Reason: Keep Vein Open Last Admin: 03/28/20 01:21 Dose: 10 ml Documented by: Sodium Chloride (Saline Flush) 10 ml FLUSH ONETIME PRN PRN Reason: Keep Vein Open Last Admin: 03/30/20 09:41 Dose: 10 ml Documented by: Discontinued Medications Albuterol (Proventil Neb Soln) 2.5 mg NEB ONETIME ONE Stop: 03/28/20 10:05 Last Admin: 03/28/20 10:18 Dose: 2.5 mg Documented by: Sodium Chloride (Normal Saline) 1,000 mls @ 125 mls/hr IV ASDIRECTED [facility] Last Admin: 03/28/20 09:54 Dose: 125 mls/hr Documented by: Azithromycin 500 mg/ Sodium (Chloride) 250 mls @ 250 mls/hr IV Q24H [facility] Stop: 03/30/20 11:59 Last Admin: 03/30/20 11:55 Dose: 250 mls/hr Documented by: Sodium Chloride (Normal Saline) Confirm Administered Dose 250 mls @ as directed .ROUTE .STK-MED ONE Stop: 03/28/20 19:44 Last Admin: 03/28/20 20:07 Dose: 125 mls/hr Documented by: Sodium Chloride (Normal Saline) Confirm Administered Dose 250 mls @ as directed .ROUTE .STK-MED ONE Stop: 03/28/20 20:38 Last Admin: 03/28/20 21:12 Dose: 125 mls/hr Documented by: Remdesivir 200 mg/ Sodium (Chloride) 250 mls @ 250 mls/hr IV ONETIME ONE Stop: 03/29/20 09:59 Last Admin: 03/29/20 09:40 Dose: 250 mls/hr Documented by: Sodium Chloride (Normal Saline) 1,000 mls @ 40 mls/hr IV ASDIRECTED [facility] Iopamidol (Isovue-370 (76%)) 100 ml IVPUSH ONETIME ONE Stop: 03/30/20 09:02 Last Admin: 03/30/20 09:41 Dose: 100 ml Documented by: Non-Formulary Medication (Ropinirole Hcl [Ropinirole Er]) 1 mg PO BID [facility] Last Admin: 03/28/20 23:04 Dose: Not Given Documented by: Ondansetron HCl (Zofran) 4 mg IVPUSH ONETIME ONE Stop: 03/28/20 00:43 Last Admin: 03/28/20 01:19 Dose: 4 mg Documented by: - Exam General: Alert, Oriented HEENT: Pupils Equal, Mucous Membr. Moist/[place] Neck: Supple Lungs: Normal Respiratory Effort, [place] Cardiovascular: Regular Rate, Regular Rhythm GI/Abdominal Exam: Normal Bowel Sounds, Soft, Non-Tender, No Distention Extremities: Normal Inspection, Non-Tender, No Pedal Edema, Normal Capillary Refill Skin: Warm, Dry, Intact Psy/Mental Status: Alert, Normal Affect, Normal Mood Sepsis Event Note - Evaluation Sepsis Screening Result: No Definite Risk - Focused Exam Vital Signs: Vital Signs Temp Pulse Resp BP Pulse Ox 03/31/20 04:31 97.2 F 58 L 20 119/74 94 L 03/30/20 20:59 97.3 F 58 L 20 131/92 H 92 L - Problem List & Annotations (1) COVID-19 SNOMED Code(s): 168295673 Code(s): U07.1 - COVID-19 Status: Acute Priority: High Current Visit: Yes (2) Generalized weakness SNOMED Code(s): 49878551 Code(s): R53.1 - WEAKNESS Status: Acute Priority: High Current Visit: Yes (3) Hypoxemia SNOMED Code(s): 161029637 Code(s): R09.02 - HYPOXEMIA Status: Acute Priority: High Current Visit: Yes (4) Renal insufficiency SNOMED Code(s): 311009615, 227389304 Code(s): N28.9 - DISORDER OF KIDNEY AND URETER, UNSPECIFIED Status: Acute Priority: High Current Visit: Yes (5) PE, Pulmonary embolism SNOMED Code(s): 42201610 Code(s): I26.99 - OTHER PULMONARY EMBOLISM WITHOUT ACUTE COR PULMONALE Status: Acute Current Visit: No - Problem List Review Problem List Initiated/Reviewed/Updated: Yes - My Orders Last 24 Hours: My Active Orders 03/30/20 09:01 Sodium Chloride 0.9% [Saline Flush] 10 ml FLUSH ONETIME PRN 03/30/20 12:36 RT Chest Physiotherapy [RC] ASDIRECTED - Assessment Assessment:: 03/29/20 ASSESSMENT COVID-19 Generalized weakness Diarrhea Anorexia -feeling much worse today. -very weak, bedrest today -decreased appetite Hypoxia -O2 now at 2L/nc, was 5 liters overnight -crackles bilateral posterior Renal insufficiency -1.5 week history of decreased po intake with diarrhea -Cre 1.5 -BUN 17 -GFR 44 Vital Signs: * T max 99.1, HR 75, BP 118/64, RR 16, 94% on 2L/NC Labs: * WBC 4.55 * HGB 12.8 * Na 138 * K+ 4.0 * Mg 2.0 * BUN 17 * Creat 1.5 * GFR 44 03/30/2020 COVID-19 pneumonia with secondary hypoxemia * CT angiogram of the chest showed patchy areas of increased density on both sides of the chest consistent with pneumonia. This could be either bacterial or viral. * Hypoxemia is certainly better today. Oxygen saturations are in the low 90s on room air. * Currently on remdesivir, Rocephin, azithromycin, and dexamethasone * Received 2 units of convalescent plasma * WBC 3.66, C-reactive protein 4.6 Pulmonary embolism * Patient was noncompliant with his Xarelto for 3 days. * Patient also missed the morning of the when he was transferred from the emergency department to the medical floor. * D-dimer increased from 4 to 23. * Patient's hypoxemia is actually improved today after restarting Xarelto yesterday. Generalized weakness with diarrhea and anorexia * Significant improvement in all 3 conditions. * Hemoglobin 11.8 Chronic renal insufficiencyimproved * BUN 19, creatinine 1.2, GFR 57 03/31/2020 COVID-19 pneumonia with improving hypoxemia * Afebrile * Continued improvement in oxygen saturations and respiratory status. * Current treatment includes remdesivir, Rocephin, and dexamethasone. * Completed azithromycin and received 2 units of convalescent plasma. * WBC 5.5 Pulmonary embolism right lung * Restarted Xarelto at 20 mg daily. * Decision was to not switch to 50 mg twice daily because he was having bleeding side effects, epistaxis, on the 20 mg daily. Also, he has significant improvement in just 24 hours after restarting Xarelto 20 mg. Generalized weakness with diarrhea and anorexia * Anorexia is improved. * Patient continues to complain of generalized weakness * Frequency of bowel movements has decreased. * Hemoglobin 12.1 Chronic renal insufficiency * Estimated GFR greater than 60. 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 * Pulse ox already improved. Acute on chronic renal insufficiency-improved * avoid nephrotoxic medications * monitor kidney function Disposition: Length of stay greater than 96 hours due to hypoxemia, COVID-19, pulmonary embolism and starting Remdesivir and Decadron.
[2020-03-31] MEDS: Rivaroxaban 10 MG Tab PO SCH (09:52)
[2020-03-31] MEDS: Cholecalciferol (Vitamin D3) 25 MCG Tab PO SCH (09:54)
[2020-03-31] MEDS: REMDESIVIR (EUA) 100 MG in Sodium Chloride 0.9% 100 ML IV SCH (09:54)
[2020-03-31] MEDS: rOPINIRole 1 MG Tab PO SCH ×2 (09:54→20:02)
[2020-03-31] MEDS: Propranolol 60 MG Cap.ER PO SCH (09:54)
[2020-03-31] MEDS: Dexamethasone 10 MG/ML SDV IVPUSH SCH (09:59)
[2020-03-31] MEDS: cefTRIAXone 2 GM in Sodium Chloride 0.9% 100 ML IV SCH (11:48)
[2020-03-31] MEDS: Simvastatin 20 MG Tab PO SCH (20:02)
[2020-03-31] MEDS: Nortriptyline 25 MG Cap PO SCH (20:02)
[2020-04-01] MEDS: REMDESIVIR (EUA) 100 MG in Sodium Chloride 0.9% 100 ML IV SCH (09:26)
[2020-04-01] MEDS: Dexamethasone 10 MG/ML SDV IVPUSH SCH (09:31)
[2020-04-01] MEDS: Cholecalciferol (Vitamin D3) 25 MCG Tab PO SCH (09:33)
[2020-04-01] MEDS: Potassium Chloride 20 MEQ Tab.ER PO SCH ×2 (09:33→12:48)
[2020-04-01] MEDS: Rivaroxaban 10 MG Tab PO SCH (09:33)
[2020-04-01] MEDS: rOPINIRole 1 MG Tab PO SCH ×2 (09:34→20:32)
[2020-04-01] MEDS: Propranolol 60 MG Cap.ER PO SCH (09:34)
--- NOTE | 2020-04-01 10:24 | PCM.PN ---
- General Info Date of Service: 04/01/20 Admission Dx/Problem (Free Text): Admission Diagnosis/Problem Admission Diagnosis/Problem Hypoxia Subjective Update: Patient is improving. Reports a poor appetite, but has been eating his protein supplement. On room air. Functional Status: Reports: Pain Controlled, Urinating, Other (reports loose stools x 2 daily. ). Denies: Tolerating Diet (porr appetite) - Review of Systems General: Reports: Weakness, Fatigue. Denies: Appetite (poor appetite) HEENT: Reports: No Symptoms Pulmonary: Reports: Shortness of Breath, Cough. Denies: Pleuritic Chest Pain, Sputum Cardiovascular: Reports: No Symptoms, Dyspnea on Exertion. Denies: Chest Pain, Palpitations, Edema Gastrointestinal: Reports: Decreased Appetite, Diarrhea. Denies: Abdominal Pain, Constipation, Nausea, Vomiting Genitourinary: Reports: No Symptoms Musculoskeletal: Reports: No Symptoms Skin: Reports: No Symptoms Neurological: Reports: No Symptoms Psychiatric: Reports: No Symptoms - Patient Data Vitals - Most Recent: Last Vital Signs Temp 97.3 F 04/01/20 07:15 Pulse 55 L 04/01/20 07:15 Resp 18 04/01/20 07:15 BP 128/73 04/01/20 07:15 Pulse Ox 96 04/01/20 07:15 Weight - Most Recent: 185 lb 9.6 oz I&O - Last 24 Hours: Intake & Output 03/31/20 04/01/20 04/01/20 22:59 06:59 14:59 Intake Total 800 100 Output Total 500 600 Balance 300 -500 Lab Results Last 24 Hours: Laboratory Results - last 24 hr 04/01/20 04/01/20 04/01/20 Range/Units 05:54 05:54 05:54 WBC 6.93 (4.23-9.07) K/mm3 RBC 4.37 L (4.63-6.08) M/mm3 Hgb 12.8 L (13.7-17.5) gm/dl Hct 39.0 L (40.1-51.0) % MCV 89.2 (79.0-92.2) fl MCH 29.3 (25.7-32.2) pg MCHC 32.8 (32.2-35.5) g/dl RDW Std Deviation 44.8 H (35.1-43.9) fL Plt Count 223 (163-337) K/mm3 MPV 10.4 (9.4-12.3) fl Neut % (Auto) 73.3 H (34.0-67.9) % Lymph % (Auto) 16.6 L (21.8-53.1) % [place] % (Auto) 7.8 (5.3-12.2) % Eos % (Auto) 0.9 (0.8-7.0) Baso % (Auto) 0.1 (0.1-1.2) % Neut # (Auto) 5.08 (1.78-5.38) K/mm3 Lymph # (Auto) 1.15 L (1.32-3.57) K/mm3 [place]ett # (Auto) 0.54 (0.30-0.82) K/mm3 Eos # (Auto) 0.06 (0.04-0.54) K/mm3 Baso # (Auto) 0.01 (0.01-0.08) K/mm3 D-Dimer, Quantitative 4.25 H (0.19-0.50) mg/L Sodium 138 (136-145) mEq/L Potassium 3.4 L (3.5-5.1) mEq/L Chloride 102 (98-107) mEq/L Carbon Dioxide 25 (21-32) mEq/L Anion Gap 14.4 (5-15) BUN 24 H (7-18) mg/dL Creatinine 1.1 (0.7-1.3) mg/dL Est Cr Clr Drug Dosing 49.77 mL/min Estimated GFR (MDRD) > 60 (>60) mL/min BUN/Creatinine Ratio 21.8 H (14-18) Glucose 98 (83-115) mg/dL Calcium 8.6 (8.5-10.1) mg/dL Magnesium 1.9 (1.8-2.4) mg/dl Total Bilirubin 0.5 (0.2-1.0) mg/dL AST 27 (15-37) U/L ALT 37 (16-63) U/L Alkaline Phosphatase 48 (46-116) U/L C-Reactive Protein 1.5 H* (<1.0) mg/dL Total Protein 6.3 L (6.4-8.2) g/dl Albumin 2.7 L (3.4-5.0) g/dl Globulin 3.6 gm/dL Albumin/Globulin Ratio 0.8 L (1-2) [place] Results Last 24 Hours: Microbiology 03/28/20 01:12 Aerobic Blood Culture - Preliminary Blood - Venous - Lab Draw NO GROWTH AFTER 4 DAYS Anaerobic Blood Culture - Preliminary NO GROWTH AFTER 4 DAYS 03/28/20 01:05 Aerobic Blood Culture - Preliminary Blood - Venous NO GROWTH AFTER 4 DAYS Anaerobic Blood Culture - Preliminary NO GROWTH AFTER 4 DAYS Med Orders - Current: Current Medications Acetaminophen (Tylenol) 650 mg PO Q4H PRN PRN Reason: Pain (Mild 1-3)/fever Last Admin: 03/30/20 21:03 Dose: 650 mg Documented by: Albuterol (Proventil Neb Soln) 2.5 mg NEB Q2H PRN PRN Reason: Shortness Of Breath/wheezing Cholecalciferol (Vitamin D3) 50 mcg PO DAILY [facility] Last Admin: 04/01/20 09:33 Dose: 50 mcg Documented by: Dexamethasone (Dexamethasone) 6 mg IVPUSH Q24H [facility] Stop: 04/07/20 09:01 Last Admin: 04/01/20 09:31 Dose: 6 mg Documented by: Ceftriaxone Sodium 2 gm/ (Sodium Chloride) 100 mls @ 200 mls/hr IV Q24H [facility] Stop: 04/01/20 11:59 Last Admin: 03/31/20 11:48 Dose: 200 mls/hr Documented by: Remdesivir 100 mg/ Sodium (Chloride) 100 mls @ 100 mls/hr IV Q24H [facility] Stop: 04/02/20 09:59 Last Admin: 04/01/20 09:26 Dose: 100 mls/hr Documented by: Magnesium Hydroxide (Milk Of Magnesia) 30 ml PO DAILY PRN PRN Reason: Constipation Last Admin: 03/29/20 16:07 Dose: 30 ml Documented by: Nortriptyline HCl (Nortriptyline) 25 mg PO BEDTIME [facility] Last Admin: 03/31/20 20:02 Dose: 25 mg Documented by: Ondansetron HCl (Zofran) 4 mg IV Q4H PRN PRN Reason: Nausea/Vomiting Potassium Chloride (Klor-Con M20) 40 meq PO Q4H [facility] Stop: 04/01/20 13:01 Last Admin: 04/01/20 09:33 Dose: 40 meq Documented by: Propranolol HCl (Inderal La) 60 mg PO DAILY [facility] Last Admin: 04/01/20 09:34 Dose: 60 mg Documented by: Rivaroxaban (Xarelto) 20 mg PO DAILY [facility] Last Admin: 04/01/20 09:33 Dose: 20 mg Documented by: Ropinirole HCl (Requip) 1 mg PO BID [facility] Last Admin: 04/01/20 09:34 Dose: 1 mg Documented by: Simvastatin (Zocor) 20 mg PO BEDTIME [facility] Last Admin: 03/31/20 20:02 Dose: 20 mg Documented by: Sodium Chloride (Saline Flush) 10 ml FLUSH ASDIRECTED PRN PRN Reason: Keep Vein Open Last Admin: 03/28/20 01:21 Dose: 10 ml Documented by: Sodium Chloride (Saline Flush) 10 ml FLUSH ONETIME PRN PRN Reason: Keep Vein Open Last Admin: 03/30/20 09:41 Dose: 10 ml Documented by: Discontinued Medications Albuterol (Proventil Neb Soln) 2.5 mg NEB ONETIME ONE Stop: 03/28/20 10:05 Last Admin: 03/28/20 10:18 Dose: 2.5 mg Documented by: Sodium Chloride (Normal Saline) 1,000 mls @ 125 mls/hr IV ASDIRECTED [facility] Last Admin: 03/28/20 09:54 Dose: 125 mls/hr Documented by: Azithromycin 500 mg/ Sodium (Chloride) 250 mls @ 250 mls/hr IV Q24H [facility] Stop: 03/30/20 11:59 Last Admin: 03/30/20 11:55 Dose: 250 mls/hr Documented by: Sodium Chloride (Normal Saline) Confirm Administered Dose 250 mls @ as directed .ROUTE .STK-MED ONE Stop: 03/28/20 19:44 Last Admin: 03/28/20 20:07 Dose: 125 mls/hr Documented by: Sodium Chloride (Normal Saline) Confirm Administered Dose 250 mls @ as directed .ROUTE .STK-MED ONE Stop: 03/28/20 20:38 Last Admin: 03/28/20 21:12 Dose: 125 mls/hr Documented by: Remdesivir 200 mg/ Sodium (Chloride) 250 mls @ 250 mls/hr IV ONETIME ONE Stop: 03/29/20 09:59 Last Admin: 03/29/20 09:40 Dose: 250 mls/hr Documented by: Sodium Chloride (Normal Saline) 1,000 mls @ 40 mls/hr IV ASDIRECTED [facility] Iopamidol (Isovue-370 (76%)) 100 ml IVPUSH ONETIME ONE Stop: 03/30/20 09:02 Last Admin: 03/30/20 09:41 Dose: 100 ml Documented by: Non-Formulary Medication (Ropinirole Hcl [Ropinirole Er]) 1 mg PO BID [facility] Last Admin: 03/28/20 23:04 Dose: Not Given Documented by: Ondansetron HCl (Zofran) 4 mg IVPUSH ONETIME ONE Stop: 03/28/20 00:43 Last Admin: 03/28/20 01:19 Dose: 4 mg Documented by: - Exam Quality Assessment: DVT Prophylaxis (Xarelto). No: Supplemental Oxygen General: Alert, Oriented, Cooperative, Mild Distress HEENT: Pupils Equal, Mucous Membr. Moist/Medicine [place]: Supple, Trachea Midline. No: No JVD, Lymphadenopathy Lungs: Normal Respiratory Effort, Crackles (bilateral bases). No: Rales, Rhonchi, Wheezing Cardiovascular: Regular Rate, Regular Rhythm, No Murmurs GI/Abdominal Exam: Normal Bowel Sounds, Soft, No Distention, Tender (with palpation) (Male) Exam: Deferred Back Exam: Normal Inspection, Full Range of Motion Extremities: Normal Inspection, Normal Range of Motion, Non-Tender, No Pedal Edema, Normal Capillary Refill Sepsis Event Note - Evaluation Sepsis Screening Result: No Definite Risk - Focused Exam Vital Signs: Vital Signs Temp Pulse Resp BP Pulse Ox 04/01/20 07:15 97.3 F 55 L 18 128/73 96 04/01/20 02:51 98.2 F 66 24 H 122/83 94 L - Problem List & Annotations (1) COVID-19 SNOMED Code(s): 732473255 Code(s): U07.1 - COVID-19 Status: Acute Priority: High Current Visit: Yes (2) Hypoxia SNOMED Code(s): 577229468 Code(s): R09.02 - HYPOXEMIA Status: Acute Priority: High Current Visit: Yes (3) Renal insufficiency SNOMED Code(s): 297852118, 652000847 Code(s): N28.9 - DISORDER OF KIDNEY AND URETER, UNSPECIFIED Status: Acute Priority: High Current Visit: Yes (4) Anorexia SNOMED Code(s): 48309280 Code(s): R63.0 - ANOREXIA Status: Acute Priority: High Current Visit: Yes (5) Diarrhea SNOMED Code(s): 35768802 Code(s): R19.7 - DIARRHEA, UNSPECIFIED Status: Acute Priority: High Current Visit: Yes Qualifiers: Diarrhea type: unspecified type Qualified Code(s): R19.7 - Diarrhea, unspecified (6) Generalized weakness SNOMED Code(s): 75306760 Code(s): R53.1 - WEAKNESS Status: Acute Priority: High Current Visit: Yes - Problem List Review Problem List Initiated/Reviewed/Updated: Yes - My Orders Last 24 Hours: My Active Orders 04/01/20 09:00 Potassium Chloride [Klor-Con M20] 40 meq PO Q4H 04/02/20 05:11 CBC WITH AUTO DIFF [HEME] DAILY COMPREHENSIVE METABOLIC PN,CMP [CHEM] DAILY MAGNESIUM [CHEM] DAILY 04/03/20 05:11 CRP [C-REACTIVE PROTEIN] [CHEM] Q48H D-DIMER QUANTITATIVE [COAG] Q48H - Assessment Assessment:: 03/29/20 ASSESSMENT COVID-19 Generalized weakness Diarrhea Anorexia -feeling much worse today. -very weak, bedrest today -decreased appetite Hypoxia -O2 now at 2L/nc, was 5 liters overnight -crackles bilateral posterior Renal insufficiency -1.5 week history of decreased po intake with diarrhea -Cre 1.5 -BUN 17 -GFR 44 Vital Signs: * T max 99.1, HR 75, BP 118/64, RR 16, 94% on 2L/NC Labs: * WBC 4.55 * HGB 12.8 * Na 138 * K+ 4.0 * Mg 2.0 * BUN 17 * Creat 1.5 * GFR 44 03/30/2020 COVID-19 pneumonia with secondary hypoxemia * CT angiogram of the chest showed patchy areas of increased density on both sides of the chest consistent with pneumonia. This could be either bacterial or viral. * Hypoxemia is certainly better today. Oxygen saturations are in the low 90s on room air. * Currently on remdesivir, Rocephin, azithromycin, and dexamethasone * Received 2 units of convalescent plasma * WBC 3.66, C-reactive protein 4.6 Pulmonary embolism * Patient was noncompliant with his Xarelto for 3 days. * Patient also missed the morning of the when he was transferred from the emergency department to the medical floor. * D-dimer increased from 4 to 23. * Patient's hypoxemia is actually improved today after restarting Xarelto yesterday. Generalized weakness with diarrhea and anorexia * Significant improvement in all 3 conditions. * Hemoglobin 11.8 Chronic renal insufficiencyimproved * BUN 19, creatinine 1.2, GFR 57 03/31/2020 COVID-19 pneumonia with improving hypoxemia * Afebrile * Continued improvement in oxygen saturations and respiratory status. * Current treatment includes remdesivir, Rocephin, and dexamethasone. * Completed azithromycin and received 2 units of convalescent plasma. * WBC 5.5 Pulmonary embolism right lung * Restarted Xarelto at 20 mg daily. * Decision was to not switch to 50 mg twice daily because he was having bleeding side effects, epistaxis, on the 20 mg daily. Also, he has significant improvement in just 24 hours after restarting Xarelto 20 mg. Generalized weakness with diarrhea and anorexia * Anorexia is improved. * Patient continues to complain of generalized weakness * Frequency of bowel movements has decreased. * Hemoglobin 12.1 Chronic renal insufficiency * Estimated GFR greater than 60. * BUN 26, creatinine 1.1 VTE prophylaxis: pt takes Xarelto Code Status: FULL CODE 04/01/2020 COVID-19 pneumonia with improving hypoxemia * Afebrile * on room air * Current treatment includes remdesivir, Rocephin, and dexamethasone. * Completed azithromycin and received 2 units of convalescent plasma. * WBC 6.9 Pulmonary embolism right lung * Xarelto * D-dimer 4.25 Generalized weakness with diarrhea and anorexia * reports poor appetite. Does enjoy protein supplements. * Patient continues to complain of generalized weakness * Reporting diarrhea stools x 2 daily * Hemoglobin 12.1 * K+ 3.4 today. Oral replacement ordered. Chronic renal insufficiency * Estimated GFR greater than 60. * BUN 24, creatinine 1.1 VTE prophylaxis: pt takes Xarelto Code Status: FULL CODE - Plan Plan:: COVID-19 pneumonia with hypoxemiaimproved Generalized weakness -improved Diarrhea -improved Anorexia-improved * MSP status with telemetry * monitor I&O, daily weights, vital signs * tylenol for fever control and comfort * zofran prn for nausea * poor po intake, eating protein supplements * PT/OT to evaluate and treat * 2 units convalescent plasma given * Remdesivir day * Decadron day * Ceftriaxone * Blood cultures currently negative * FiO2 to keep SPO2 between 88 and 94% * Currently on room air * Albuterol nebulizer Q 2 hours as needed for wheezing * incentive spirometer Q1 hour while awake Pulmonary embolism * Continue Xarelto 20 mg daily * Appears to be secondary to noncompliance with Xarelto. * Pulse ox already improved. On room air Acute on chronic renal insufficiency-improved * avoid nephrotoxic medications * monitor kidney function Disposition: Length of stay greater than 96 hours due to hypoxemia, COVID-19, pulmonary embolism and starting Remdesivir and Decadron.
[2020-04-01] MEDS: cefTRIAXone 2 GM in Sodium Chloride 0.9% 100 ML IV SCH (12:48)
[2020-04-01] MEDS: Simvastatin 20 MG Tab PO SCH (20:33)
[2020-04-01] MEDS: Nortriptyline 25 MG Cap PO SCH (20:33)
[2020-04-02] MEDS: Rivaroxaban 10 MG Tab PO SCH (08:53)
[2020-04-02] MEDS: REMDESIVIR (EUA) 100 MG in Sodium Chloride 0.9% 100 ML IV SCH (08:53)
[2020-04-02] MEDS: Dexamethasone 4 MG Tab PO SCH (08:54)
[2020-04-02] MEDS: Cholecalciferol (Vitamin D3) 25 MCG Tab PO SCH (08:54)
[2020-04-02] MEDS: rOPINIRole 1 MG Tab PO SCH ×2 (08:55→20:36)
[2020-04-02] MEDS: Propranolol 60 MG Cap.ER PO SCH (08:55)
--- NOTE | 2020-04-02 10:37 | PCM.PN ---
- General Info Date of Service: 04/02/20 Admission Dx/Problem (Free Text): Admission Diagnosis/Problem Admission Diagnosis/Problem Hypoxia Subjective Update: Appetite is still poor. States that nothing tastes good and everything is soggy. Taking supplements well. Persistent cough. Functional Status: Reports: Pain Controlled, Incentive Spirometry (up to 1999). Denies: Tolerating Diet (poor appetite) - Review of Systems General: Reports: Weakness, Fatigue. Denies: Appetite (poor appetite) HEENT: Reports: No Symptoms Pulmonary: Reports: Cough (persistent nonproductive cough) Cardiovascular: Reports: No Symptoms. Denies: Chest Pain, Palpitations, Edema Gastrointestinal: Reports: Diarrhea (states he is still having loose stools) Genitourinary: Reports: No Symptoms Musculoskeletal: Reports: No Symptoms Skin: Reports: No Symptoms Neurological: Reports: No Symptoms Psychiatric: Reports: No Symptoms - Patient Data Vitals - Most Recent: Last Vital Signs Temp 97.7 F 04/02/20 09:02 Pulse 52 L 04/02/20 09:02 Resp 20 04/02/20 09:02 BP 156/68 H 04/02/20 09:02 Pulse Ox 90 L 04/02/20 09:02 Weight - Most Recent: 186 lb 1.6 oz I&O - Last 24 Hours: Intake & Output 04/01/20 04/02/20 04/02/20 22:59 06:59 14:59 Intake Total 1140 500 Output Total 600 300 Balance 540 200 Lab Results Last 24 Hours: Laboratory Results - last 24 hr 04/02/20 04/02/20 Range/Units 05:22 05:22 WBC 7.29 (4.23-9.07) K/mm3 RBC 4.31 L (4.63-6.08) M/mm3 Hgb 12.6 L (13.7-17.5) gm/dl Hct 38.8 L (40.1-51.0) % MCV 90.0 (79.0-92.2) fl MCH 29.2 (25.7-32.2) pg MCHC 32.5 (32.2-35.5) g/dl RDW Std Deviation 45.9 H (35.1-43.9) fL Plt Count 213 (163-337) K/mm3 MPV 10.4 (9.4-12.3) fl Neut % (Auto) 66.2 (34.0-67.9) % Lymph % (Auto) 17.3 L (21.8-53.1) % [place] % (Auto) 10.0 (5.3-12.2) % Eos % (Auto) 2.2 (0.8-7.0) Baso % (Auto) 0.7 (0.1-1.2) % Neut # (Auto) 4.83 (1.78-5.38) K/mm3 Lymph # (Auto) 1.26 L (1.32-3.57) K/mm3 [place] # (Auto) 0.73 (0.30-0.82) K/mm3 Eos # (Auto) 0.16 (0.04-0.54) K/mm3 Baso # (Auto) 0.05 (0.01-0.08) K/mm3 Manual Slide Review Normal smear Sodium 139 (136-145) mEq/L Potassium 4.2 (3.5-5.1) mEq/L Chloride 104 (98-107) mEq/L Carbon Dioxide 27 (21-32) mEq/L Anion Gap 12.2 (5-15) BUN 23 H (7-18) mg/dL Creatinine 1.1 (0.7-1.3) mg/dL Est Cr Clr Drug Dosing 49.77 mL/min Estimated GFR (MDRD) > 60 (>60) mL/min BUN/Creatinine Ratio 20.9 H (14-18) Glucose 99 (83-115) mg/dL Calcium 8.7 (8.5-10.1) mg/dL Magnesium 2.0 (1.8-2.4) mg/dl Total Bilirubin 0.5 (0.2-1.0) mg/dL AST 26 (15-37) U/L ALT 42 (16-63) U/L Alkaline Phosphatase 49 (46-116) U/L Total Protein 6.1 L (6.4-8.2) g/dl Albumin 2.6 L (3.4-5.0) g/dl Globulin 3.5 gm/dL Albumin/Globulin Ratio 0.7 L (1-2) [place] Results Last 24 Hours: Microbiology 03/28/20 01:12 Aerobic Blood Culture - Preliminary Blood - Venous - Lab Draw NO GROWTH AFTER 5 DAYS Anaerobic Blood Culture - Preliminary NO GROWTH AFTER 5 DAYS 03/28/20 01:05 Aerobic Blood Culture - Preliminary Blood - Venous NO GROWTH AFTER 5 DAYS Anaerobic Blood Culture - Preliminary NO GROWTH AFTER 5 DAYS Med Orders - Current: Current Medications Acetaminophen (Tylenol) 650 mg PO Q4H PRN PRN Reason: Pain (Mild 1-3)/fever Last Admin: 03/30/20 21:03 Dose: 650 mg Documented by: Albuterol (Proventil Neb Soln) 2.5 mg NEB Q2H PRN PRN Reason: Shortness Of Breath/wheezing Cholecalciferol (Vitamin D3) 50 mcg PO DAILY [facility] Last Admin: 04/02/20 08:54 Dose: 50 mcg Documented by: Dexamethasone (Dexamethasone) 6 mg PO DAILY [facility] Stop: 04/07/20 09:01 Last Admin: 04/02/20 08:54 Dose: 6 mg Documented by: Magnesium Hydroxide (Milk Of Magnesia) 30 ml PO DAILY PRN PRN Reason: Constipation Last Admin: 03/29/20 16:07 Dose: 30 ml Documented by: Nortriptyline HCl (Nortriptyline) 25 mg PO BEDTIME [facility] Last Admin: 04/01/20 20:33 Dose: 25 mg Documented by: Ondansetron HCl (Zofran) 4 mg IV Q4H PRN PRN Reason: Nausea/Vomiting Propranolol HCl (Inderal La) 60 mg PO DAILY [facility] Last Admin: 04/02/20 08:55 Dose: 60 mg Documented by: Rivaroxaban (Xarelto) 20 mg PO DAILY [facility] Last Admin: 04/02/20 08:53 Dose: 20 mg Documented by: Ropinirole HCl (Requip) 1 mg PO BID [facility] Last Admin: 04/02/20 08:55 Dose: 1 mg Documented by: Simvastatin (Zocor) 20 mg PO BEDTIME [facility] Last Admin: 04/01/20 20:33 Dose: 20 mg Documented by: Sodium Chloride (Saline Flush) 10 ml FLUSH ASDIRECTED PRN PRN Reason: Keep Vein Open Last Admin: 03/28/20 01:21 Dose: 10 ml Documented by: Sodium Chloride (Saline Flush) 10 ml FLUSH ONETIME PRN PRN Reason: Keep Vein Open Last Admin: 03/30/20 09:41 Dose: 10 ml Documented by: Discontinued Medications Albuterol (Proventil Neb Soln) 2.5 mg NEB ONETIME ONE Stop: 03/28/20 10:05 Last Admin: 03/28/20 10:18 Dose: 2.5 mg Documented by: Dexamethasone (Dexamethasone) 6 mg IVPUSH Q24H [facility] Stop: 04/07/20 09:01 Last Admin: 04/01/20 09:31 Dose: 6 mg Documented by: Sodium Chloride (Normal Saline) 1,000 mls @ 125 mls/hr IV ASDIRECTED [facility] Last Admin: 03/28/20 09:54 Dose: 125 mls/hr Documented by: Ceftriaxone Sodium 2 gm/ (Sodium Chloride) 100 mls @ 200 mls/hr IV Q24H [facility] Stop: 04/01/20 11:59 Last Admin: 04/01/20 12:48 Dose: 200 mls/hr Documented by: Azithromycin 500 mg/ Sodium (Chloride) 250 mls @ 250 mls/hr IV Q24H [facility] Stop: 03/30/20 11:59 Last Admin: 03/30/20 11:55 Dose: 250 mls/hr Documented by: Sodium Chloride (Normal Saline) Confirm Administered Dose 250 mls @ as directed .ROUTE .STK-MED ONE Stop: 03/28/20 19:44 Last Admin: 03/28/20 20:07 Dose: 125 mls/hr Documented by: Sodium Chloride (Normal Saline) Confirm Administered Dose 250 mls @ as directed .ROUTE .STK-MED ONE Stop: 03/28/20 20:38 Last Admin: 03/28/20 21:12 Dose: 125 mls/hr Documented by: Remdesivir 200 mg/ Sodium (Chloride) 250 mls @ 250 mls/hr IV ONETIME ONE Stop: 03/29/20 09:59 Last Admin: 03/29/20 09:40 Dose: 250 mls/hr Documented by: Remdesivir 100 mg/ Sodium (Chloride) 100 mls @ 100 mls/hr IV Q24H [facility] Stop: 04/02/20 09:59 Last Admin: 04/02/20 08:53 Dose: 100 mls/hr Documented by: Sodium Chloride (Normal Saline) 1,000 mls @ 40 mls/hr IV ASDIRECTED [facility] Iopamidol (Isovue-370 (76%)) 100 ml IVPUSH ONETIME ONE Stop: 03/30/20 09:02 Last Admin: 03/30/20 09:41 Dose: 100 ml Documented by: Non-Formulary Medication (Ropinirole Hcl [Ropinirole Er]) 1 mg PO BID [facility] Last Admin: 03/28/20 23:04 Dose: Not Given Documented by: Ondansetron HCl (Zofran) 4 mg IVPUSH ONETIME ONE Stop: 03/28/20 00:43 Last Admin: 03/28/20 01:19 Dose: 4 mg Documented by: Potassium Chloride (Klor-Con M20) 40 meq PO Q4H [facility] Stop: 04/01/20 13:01 Last Admin: 04/01/20 12:48 Dose: 40 meq Documented by: - Exam Quality Assessment: DVT Prophylaxis (on xarelto). No: Supplemental Oxygen (currently on room air today) General: Alert, Oriented, Cooperative, Mild Distress HEENT: Pupils Equal, Mucous Membr. Moist/[place] Neck: Supple, Trachea Midline, No JVD. No: Lymphadenopathy Lungs: Crackles (left posterior lower lobe) Cardiovascular: Regular Rate, Regular Rhythm, No Murmurs GI/Abdominal Exam: Normal Bowel Sounds, Soft, Non-Tender (Male) Exam: Deferred Back Exam: Normal Inspection Extremities: Normal Inspection, Normal Range of Motion, Non-Tender, No Pedal Edema, Normal Capillary Refill Peripheral Pulses: 2+: Radial (L), Radial (R), Dorsalis Pedis (L), Dorsalis Pedis (R) Skin: Warm, Dry, Intact Neurological: No New Focal Deficit Psy/Mental Status: Alert, Normal Affect, Normal Mood Sepsis Event Note - Evaluation Sepsis Screening Result: No Definite Risk - Focused Exam Vital Signs: Vital Signs Temp Pulse Resp BP Pulse Ox 04/02/20 09:02 97.7 F 52 L 20 156/68 H 90 L 04/02/20 04:03 97.5 F 58 L 18 129/74 92 L 04/02/20 00:48 97.3 F 56 L 18 128/69 94 L - Problem List & Annotations (1) COVID-19 SNOMED Code(s): 258719051 Code(s): U07.1 - COVID-19 Status: Acute Priority: High Current Visit: Yes (2) Hypoxia SNOMED Code(s): 457816824 Code(s): R09.02 - HYPOXEMIA Status: Acute Priority: High Current Visit: Yes (3) Renal insufficiency SNOMED Code(s): 417580780, 314797866 Code(s): N28.9 - DISORDER OF KIDNEY AND URETER, UNSPECIFIED Status: Acute Priority: High Current Visit: Yes (4) Anorexia SNOMED Code(s): 78687290 Code(s): R63.0 - ANOREXIA Status: Acute Priority: High Current Visit: Yes (5) Diarrhea SNOMED Code(s): 57174006 Code(s): R19.7 - DIARRHEA, UNSPECIFIED Status: Acute Priority: High Current Visit: Yes Qualifiers: Diarrhea type: unspecified type Qualified Code(s): R19.7 - Diarrhea, unspecified (6) Generalized weakness SNOMED Code(s): 87921406 Code(s): R53.1 - WEAKNESS Status: Acute Priority: High Current Visit: Yes - Problem List Review Problem List Initiated/Reviewed/Updated: Yes - My Orders Last 24 Hours: My Active Orders 04/03/20 05:11 CRP [C-REACTIVE PROTEIN] [CHEM] Q48H D-DIMER QUANTITATIVE [COAG] Q48H - Assessment Assessment:: 03/29/20 ASSESSMENT COVID-19 Generalized weakness Diarrhea Anorexia -feeling much worse today. -very weak, bedrest today -decreased appetite Hypoxia -O2 now at 2L/nc, was 5 liters overnight -crackles bilateral posterior Renal insufficiency -1.5 week history of decreased po intake with diarrhea -Cre 1.5 -BUN 17 -GFR 44 Vital Signs: * T max 99.1, HR 75, BP 118/64, RR 16, 94% on 2L/NC Labs: * WBC 4.55 * HGB 12.8 * Na 138 * K+ 4.0 * Mg 2.0 * BUN 17 * Creat 1.5 * GFR 44 03/30/2020 COVID-19 pneumonia with secondary hypoxemia * CT angiogram of the chest showed patchy areas of increased density on both sides of the chest consistent with pneumonia. This could be either bacterial or viral. * Hypoxemia is certainly better today. Oxygen saturations are in the low 90s on room air. * Currently on remdesivir, Rocephin, azithromycin, and dexamethasone * Received 2 units of convalescent plasma * WBC 3.66, C-reactive protein 4.6 Pulmonary embolism * Patient was noncompliant with his Xarelto for 3 days. * Patient also missed the morning of the when he was transferred from the emergency department to the medical floor. * D-dimer increased from 4 to 23. * Patient's hypoxemia is actually improved today after restarting Xarelto yesterday. Generalized weakness with diarrhea and anorexia * Significant improvement in all 3 conditions. * Hemoglobin 11.8 Chronic renal insufficiencyimproved * BUN 19, creatinine 1.2, GFR 57 03/31/2020 COVID-19 pneumonia with improving hypoxemia * Afebrile * Continued improvement in oxygen saturations and respiratory status. * Current treatment includes remdesivir, Rocephin, and dexamethasone. * Completed azithromycin and received 2 units of convalescent plasma. * WBC 5.5 Pulmonary embolism right lung * Restarted Xarelto at 20 mg daily. * Decision was to not switch to 50 mg twice daily because he was having bleeding side effects, epistaxis, on the 20 mg daily. Also, he has significant improvement in just 24 hours after restarting Xarelto 20 mg. Generalized weakness with diarrhea and anorexia * Anorexia is improved. * Patient continues to complain of generalized weakness * Frequency of bowel movements has decreased. * Hemoglobin 12.1 Chronic renal insufficiency * Estimated GFR greater than 60. * BUN 26, creatinine 1.1 VTE prophylaxis: pt takes Xarelto Code Status: FULL CODE 04/01/2020 COVID-19 pneumonia with improving hypoxemia * Afebrile * on room air * Current treatment includes remdesivir, Rocephin, and dexamethasone. * Completed azithromycin and received 2 units of convalescent plasma. * WBC 6.9 Pulmonary embolism right lung * Xarelto * D-dimer 4.25 Generalized weakness with diarrhea and anorexia * reports poor appetite. Does enjoy protein supplements. * Patient continues to complain of generalized weakness * Reporting diarrhea stools x 2 daily * Hemoglobin 12.1 * K+ 3.4 today. Oral replacement ordered. Chronic renal insufficiency * Estimated GFR greater than 60. * BUN 24, creatinine 1.1 VTE prophylaxis: pt takes Xarelto Code Status: FULL CODE 04/02/2020 COVID-19 pneumonia with improving hypoxemia * Afebrile * on room air * Current treatment includes remdesivir, Rocephin, and dexamethasone. * Completed azithromycin and received 2 units of convalescent plasma. * WBC 7.29 Pulmonary embolism right lung * Xarelto Generalized weakness with diarrhea and anorexia * reports poor appetite. Does enjoy protein supplements. * Patient continues to complain of generalized weakness * Reporting diarrhea stools x 2 daily * Hemoglobin 12.6 * K+ 4.2today. Chronic renal insufficiency * Estimated GFR greater than 60. * BUN 23, creatinine 1.1 VTE prophylaxis: pt takes Xarelto Code Status: FULL CODE - Plan Plan:: COVID-19 pneumonia with hypoxemiaimproved Generalized weakness -improved Diarrhea -improved Anorexia-improved * MSP status with telemetry * monitor I&O, daily weights, vital signs * tylenol for fever control and comfort * zofran prn for nausea * poor po intake, eating protein supplements * PT/OT to re-evaluate and treat today * 2 units convalescent plasma given * Remdesivir day 5 of * Decadron day of * FiO2 to keep SPO2 between 88 and 94% * Currently on room air * Albuterol nebulizer Q 2 hours as needed for wheezing * incentive spirometer Q1 hour while awake Pulmonary embolism * Continue Xarelto 20 mg daily * Appears to be secondary to noncompliance with Xarelto. * on room air Acute on chronic renal insufficiency-improved * avoid nephrotoxic medications * monitor kidney function Disposition: Length of stay greater than 96 hours due to hypoxemia, COVID-19, pulmonary embolism and starting Remdesivir and Decadron.
[2020-04-02] MEDS: Albuterol 0.083% 2.5 MG/3 ML Neb Soln NEB PRN ×2 (11:19→17:49)
[2020-04-02] MEDS: Simvastatin 20 MG Tab PO SCH (20:37)
[2020-04-02] MEDS: Nortriptyline 25 MG Cap PO SCH (20:37)
[2020-04-03] MEDS: Albuterol 0.083% 2.5 MG/3 ML Neb Soln NEB PRN ×3 (06:01→16:34)
[2020-04-03] MEDS ORDERED: Potassium Chloride 20 MEQ Tab.ER PO ONE (07:28)
[2020-04-03] MEDS: Dexamethasone 4 MG Tab PO SCH (08:38)
[2020-04-03] MEDS: Rivaroxaban 10 MG Tab PO SCH (08:39)
[2020-04-03] MEDS: rOPINIRole 1 MG Tab PO SCH ×2 (08:39→20:16)
[2020-04-03] MEDS: Cholecalciferol (Vitamin D3) 25 MCG Tab PO SCH (08:39)
--- NOTE | 2020-04-03 09:34 | CR ---
Chest: Portable view of the chest was obtained. Comparison: Prior chest x-ray of 03/28/20. Chest CT of 03/30/20 is also available. Persisting interstitial change is seen within the right midlung. Lesser interstitial change within the left base which is most likely chronic. Lungs otherwise are clear. Heart size is normal. Tortuous thoracic aorta is seen. Mild degenerative change is noted within both shoulders. Impression: 1. Continuing focal interstitial change within the right midlung. Mild area of persisting pneumonia is possible. 2. Other findings believed to be chronic as noted above. Diagnostic code #3 This report was dictated in MDT
--- NOTE | 2020-04-03 10:26 | CT ---
Head CT Technique: Multiple axial sections through the brain were obtained. Intravenous contrast was not utilized. Comparison: Prior head CT study of 02/23/20. Findings: Ventricles along with basal cisterns and sulci over the convexities are mildly prominent. Diminished density is noted within the right posterior parietal convexity as well as within the left frontal region compatible with old infarcts. These findings are stable from previous exam. Mild areas of diminished density are noted within the periventricular white matter most likely due to mild small vessel ischemic demyelination change. No other abnormal parenchymal densities are appreciated. No evidence of intracranial hemorrhage. No midline shift or mass effect is appreciated. Bone window settings were reviewed. No acute calvarial finding is seen. Visualized mastoid sinuses and visualized paranasal sinuses show nothing acute. Impression: 1. 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 These findings are stable from prior head CT study. 2. Other senescent change as noted above which is also stable. 3. Nothing acute is appreciated. Diagnostic code #2 This report was dictated in MDT
[2020-04-03] MEDS: Propranolol 60 MG Cap.ER PO SCH ×2 (10:47→13:03)
--- NOTE | 2020-04-03 11:00 | PCM.PN ---
- General Info Date of Service: 04/03/20 Admission Dx/Problem (Free Text): Admission Diagnosis/Problem Admission Diagnosis/Problem Hypoxia Subjective Update: Still not eating much but is taking his protein supplements. States he has not had diarrhea stools today, previously had been having two diarrhea stools daily. Reports new onset left arm weakness. Denies having issues with this in the past. Is unable to raise left arm independently. Is on room air. Using IS independently. Functional Status: Reports: Urinating, Incentive Spirometry. Denies: Tolerating Diet (still not taking in much po intake for meals; taking protein supplements. ) - Review of Systems General: Reports: Weakness. Denies: Appetite (poor) HEENT: Reports: No Symptoms. Denies: Headaches Pulmonary: Reports: Cough (decreased). Denies: Pleuritic Chest Pain, Sputum, Wheezing Cardiovascular: Denies: Chest Pain, Palpitations, Edema, Lightheadedness Gastrointestinal: Reports: No Symptoms. Denies: Diarrhea (no diarrhea noted today), Nausea, Vomiting Genitourinary: Reports: No Symptoms Musculoskeletal: Reports: No Symptoms Neurological: Reports: Weakness (new onset left arm weakness). Denies: Confusion, Dizziness, Headache, Change in Speech Psychiatric: Reports: No Symptoms - Patient Data Vitals - Most Recent: Last Vital Signs Temp 97.9 F 04/03/20 08:30 Pulse 54 L 04/03/20 08:30 Resp 16 04/03/20 08:30 BP 150/85 H 04/03/20 08:30 Pulse Ox 92 L 04/03/20 08:30 Weight - Most Recent: 189 lb - Exam Quality Assessment: DVT Prophylaxis (xarelto). No: Supplemental Oxygen (on room air 91-92%) General: Alert, Oriented, Cooperative, No Acute Distress HEENT: Pupils Equal, Mucous Membr. Moist/[place] Neck: Supple, Trachea Midline. No: Lymphadenopathy Lungs: Crackles (right middle and lower lobe). No: Wheezing Cardiovascular: Regular Rate, Regular Rhythm, No Murmurs GI/Abdominal Exam: Normal Bowel Sounds, Soft, Non-Tender, No Distention (Male) Exam: Deferred Back Exam: Normal Inspection, Full Range of Motion Extremities: Normal Inspection, Non-Tender, No Pedal Edema, Normal Capillary Refill. No: Normal Range of Motion (left upper arm weakness) Peripheral Pulses: 2+: Radial (L), Radial (R), Dorsalis Pedis (L), Dorsalis Pedis (R) Skin: Warm, Dry, Intact Neurological: No: Strength Equal Bilateral (left arm weakness-unable to lift left arm without assistance. Neuro assessment otherwise is unremarkable. ) Psy/Mental Status: Alert, Normal Affect, Normal Mood Sepsis Event Note - Evaluation Sepsis Screening Result: No Definite Risk - Problem List & Annotations (1) COVID-19 SNOMED Code(s): 529739438 Code(s): U07.1 - COVID-19 Status: Acute Priority: High Current Visit: Yes (2) Hypoxia SNOMED Code(s): 866636149 Code(s): R09.02 - HYPOXEMIA Status: Acute Priority: High Current Visit: Yes (3) Renal insufficiency SNOMED Code(s): 218701084, 241378742 Code(s): N28.9 - DISORDER OF KIDNEY AND URETER, UNSPECIFIED Status: Acute Priority: High Current Visit: Yes (4) Anorexia SNOMED Code(s): 87356927 Code(s): R63.0 - ANOREXIA Status: Acute Priority: High Current Visit: Yes (5) Diarrhea SNOMED Code(s): 78707450 Code(s): R19.7 - DIARRHEA, UNSPECIFIED Status: Acute Priority: High Current Visit: Yes Qualifiers: Diarrhea type: unspecified type Qualified Code(s): R19.7 - Diarrhea, unspecified (6) Generalized weakness SNOMED Code(s): 10789655 Code(s): R53.1 - WEAKNESS Status: Acute Priority: High Current Visit: Yes (7) Weakness of left upper extremity SNOMED Code(s): 172298396 Code(s): R29.898 - OTH SYMPTOMS AND SIGNS INVOLVING THE MUSCULOSKELETAL SYSTEM Status: Acute Priority: High Current Visit: Yes - Problem List Review Problem List Initiated/Reviewed/Updated: Yes - My Orders Last 24 Hours: My Active Orders 04/03/20 10:35 Brain wo Cont [MR] Routine 04/04/20 05:11 CBC WITH AUTO DIFF [HEME] Routine COMPREHENSIVE METABOLIC PN,CMP [CHEM] Routine MAGNESIUM [CHEM] Routine - Assessment Assessment:: 03/29/20 ASSESSMENT COVID-19 Generalized weakness Diarrhea Anorexia -feeling much worse today. -very weak, bedrest today -decreased appetite Hypoxia -O2 now at 2L/nc, was 5 liters overnight -crackles bilateral posterior Renal insufficiency -1.5 week history of decreased po intake with diarrhea -Cre 1.5 -BUN 17 -GFR 44 Vital Signs: * T max 99.1, HR 75, BP 118/64, RR 16, 94% on 2L/NC Labs: * WBC 4.55 * HGB 12.8 * Na 138 * K+ 4.0 * Mg 2.0 * BUN 17 * Creat 1.5 * GFR 44 03/30/2020 COVID-19 pneumonia with secondary hypoxemia * CT angiogram of the chest showed patchy areas of increased density on both sides of the chest consistent with pneumonia. This could be either bacterial or viral. * Hypoxemia is certainly better today. Oxygen saturations are in the low 90s on room air. * Currently on remdesivir, Rocephin, azithromycin, and dexamethasone * Received 2 units of convalescent plasma * WBC 3.66, C-reactive protein 4.6 Pulmonary embolism * Patient was noncompliant with his Xarelto for 3 days. * Patient also missed the morning of the when he was transferred from the emergency department to the medical floor. * D-dimer increased from 4 to 23. * Patient's hypoxemia is actually improved today after restarting Xarelto yesterday. Generalized weakness with diarrhea and anorexia * Significant improvement in all 3 conditions. * Hemoglobin 11.8 Chronic renal insufficiencyimproved * BUN 19, creatinine 1.2, GFR 57 03/31/2020 COVID-19 pneumonia with improving hypoxemia * Afebrile * Continued improvement in oxygen saturations and respiratory status. * Current treatment includes remdesivir, Rocephin, and dexamethasone. * Completed azithromycin and received 2 units of convalescent plasma. * WBC 5.5 Pulmonary embolism right lung * Restarted Xarelto at 20 mg daily. * Decision was to not switch to 50 mg twice daily because he was having bleeding side effects, epistaxis, on the 20 mg daily. Also, he has significant improvement in just 24 hours after restarting Xarelto 20 mg. Generalized weakness with diarrhea and anorexia * Anorexia is improved. * Patient continues to complain of generalized weakness * Frequency of bowel movements has decreased. * Hemoglobin 12.1 Chronic renal insufficiency * Estimated GFR greater than 60. * BUN 26, creatinine 1.1 VTE prophylaxis: pt takes Xarelto Code Status: FULL CODE 04/01/2020 COVID-19 pneumonia with improving hypoxemia * Afebrile * on room air * Current treatment includes remdesivir, Rocephin, and dexamethasone. * Completed azithromycin and received 2 units of convalescent plasma. * WBC 6.9 Pulmonary embolism right lung * Xarelto * D-dimer 4.25 Generalized weakness with diarrhea and anorexia * reports poor appetite. Does enjoy protein supplements. * Patient continues to complain of generalized weakness * Reporting diarrhea stools x 2 daily * Hemoglobin 12.1 * K+ 3.4 today. Oral replacement ordered. Chronic renal insufficiency * Estimated GFR greater than 60. * BUN 24, creatinine 1.1 VTE prophylaxis: pt takes Xarelto Code Status: FULL CODE 04/02/2020 COVID-19 pneumonia with improving hypoxemia * Afebrile * on room air * Current treatment includes remdesivir, Rocephin, and dexamethasone. * Completed azithromycin and received 2 units of convalescent plasma. * WBC 7.29 Pulmonary embolism right lung * Xarelto Generalized weakness with diarrhea and anorexia * reports poor appetite. Does enjoy protein supplements. * Patient continues to complain of generalized weakness * Reporting diarrhea stools x 2 daily * Hemoglobin 12.6 * K+ 4.2today. Chronic renal insufficiency * Estimated GFR greater than 60. * BUN 23, creatinine 1.1 VTE prophylaxis: pt takes Xarelto Code Status: FULL CODE 04/03/2020 COVID-19 pneumonia with improving hypoxemia * Afebrile * on room air * Current treatment includes dexamethasone. * Completed azithromycin, Rocephin, remdesivir and received 2 units of convalescent plasma. * WBC 8.64 * Hgb 13.4 * D-dimer 1.80 * CRP 1.0 * CXR continuing focal interstitial change within the right midlung. Mild area of persisting pneumonia is possible. Lesser interstitial change within the left base which is most likely chronic. Lungs otherwise clear. Pulmonary embolism right lung * Xarelto Generalized weakness with diarrhea and anorexia * still taking po poorly. Taking protein supplements. * has not had any stools today * K+ 3.7 Oral dose of potassium ordered for today. Chronic renal insufficiency * Estimated GFR greater than 60. * BUN 24, creatinine 1.1 Weakness of left upper extremity * new onset weakness of left arm with inability to grasp objects. Unable to lift left arm without assistance. Neuro assessment otherwise unremarkable. * CT head ordered stat. 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 These findings are stable from prior head CT study. Other senescent change noted but this is also stable. Nothing acute is appreciated. 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 No acute diffusion abnormalities are seen. No abnormal enhancement in seen. PROPHYLAXIS DTE: pt takes Xarelto GI: not applicable CODE STATUS: FULL CODE - Plan Plan:: COVID-19 pneumonia with hypoxemiaimproved Generalized weakness -improved Diarrhea -improved Anorexia-improved * MSP status with telemetry * monitor I&O, daily weights, vital signs, neuro checks * tylenol for fever control and comfort * zofran prn for nausea * poor po intake, eating protein supplements * PT/OT for discharge planning * Decadron day 6 of 10 * FiO2 to keep SPO2 between 88 and 94% * Currently placed back on 2 liters * Albuterol nebulizer Q 2 hours as needed for wheezing * incentive spirometer Q1 hour while awake Pulmonary embolism * Continue Xarelto 20 mg daily * Appears to be secondary to noncompliance with Xarelto. * on 2 liters Acute on chronic renal insufficiency-improved * avoid nephrotoxic medications * monitor kidney function Weakness of left upper extremity * MRI unremarkable. PT/OT to eval and treat left arm weakness Disposition: Length of stay greater than 96 hours due to hypoxemia, COVID-19, pulmonary embolism.
[2020-04-03] MEDS ORDERED: Gadobenate Dimeglumine 529 MG/ML 20 ML SDV IVPUSH ONE (12:30)
[2020-04-03] MEDS ORDERED: Sodium Chloride 0.9% 10 ML Syringe FLUSH ONE (12:30)
--- NOTE | 2020-04-03 12:43 | MR ---
MRI brain (without and with intravenous contrast) Technique: T1 sagittal; T2, T2 FLAIR, T2 gradient echo and diffusion axial; and gradient echo and T1 weighted coronal; postcontrast T1 axial and post contrast T1 coronal images were obtained to the brain. Comparison: Prior head CT study performed earlier on the same day. Findings: Ventricles along with basal cisterns and sulci over the convexities are mildly prominent. Increased signal scattered within the periventricular and subcortical white matter compatible with small vessel ischemic demyelination change. No acute diffusion abnormalities are seen. Old infarct is noted within the left posterior frontal region and posterior right parietal region. No abnormal enhancement is seen. Normal signal void is seen within the major cerebral arteries within the skull base. Visualized paranasal sinuses and mastoid sinuses show nothing acute. Large abnormality is noted within the posterior nasopharynx measuring 2.2 cm. 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 Impression: 1. Senescent change as noted above. 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 2. 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 3. No acute diffusion abnormalities are seen. No abnormal enhancement is seen. Diagnostic code #3 This report was dictated in MDT
--- NOTE | 2020-04-03 16:00 | US ---
Carotid ultrasound: Multiple real-time images were obtained. Comparison: No prior carotid imaging is available. Findings: Plaque: Mild to moderate amount of plaque noted within the left carotid bulb extending into the internal carotid artery. Small amount of plaque noted within the left carotid bulb. Plaque on the left side has irregular surface margins. Plaque on the right side has smooth surface margins. Velocity measurements: Right side: CCA has a peak systolic velocity of 0.86 m/s. ICA has a peak systolic velocity of 0.71 m/s and peak end-diastolic velocity of 0.13 m/s. ECA has a peak systolic velocity of 0.88 m/s. Vertebral artery has a peak systolic velocity of 0.62 m/s. ICA/CCA ratio is 0.82. Left side: CCA has a peak systolic velocity of 0.86 m/s. ICA has a peak systolic velocity of 0.86 m/s and peak end-diastolic velocity of 0.18 m/s. ECA has a peak systolic velocity of 0.62 m/s. Vertebral artery has a peak systolic velocity of 0.58 m/s. ICA/CCA ratio is 1.0. Impression: 1. Plaque as noted above. 2. Velocity measurements within both internal carotid arteries correspond to stenosis in the range of 1-49 percent. Diagnostic code #2 This report was dictated in MDT
[2020-04-03] MEDS: Simvastatin 20 MG Tab PO SCH (20:16)
[2020-04-03] MEDS: Nortriptyline 25 MG Cap PO SCH (20:16)
[2020-04-04] MEDS: Cholecalciferol (Vitamin D3) 25 MCG Tab PO SCH (08:30)
[2020-04-04] MEDS: rOPINIRole 1 MG Tab PO SCH ×2 (08:30→20:32)
[2020-04-04] MEDS: Propranolol 60 MG Cap.ER PO SCH (08:30)
[2020-04-04] MEDS: Dexamethasone 4 MG Tab PO SCH (08:30)
[2020-04-04] MEDS: Rivaroxaban 10 MG Tab PO SCH (08:31)
--- NOTE | 2020-04-04 10:06 | PCM.PN ---
- General Info Date of Service: 04/04/20 Admission Dx/Problem (Free Text): Admission Diagnosis/Problem Admission Diagnosis/Problem Hypoxia Subjective Update: Reports feeling better today. Appetite is still poor. Was able to eat a hard boiled egg. Left arm weakness is better. Functional Status: Reports: Pain Controlled, Ambulating (in the room with PT), Urinating, Incentive Spirometry (need encouragement to remember to do it hourly). Denies: Tolerating Diet (appetite is poor) - Review of Systems General: Reports: Fatigue. Denies: Appetite (poor) HEENT: Reports: No Symptoms Pulmonary: Reports: Cough. Denies: Sputum Cardiovascular: Reports: Dyspnea on Exertion. Denies: Chest Pain, Palpitations, Edema Gastrointestinal: Reports: Decreased Appetite. Denies: Abdominal Pain, Constipation, Diarrhea, Nausea, Vomiting Genitourinary: Reports: No Symptoms Musculoskeletal: Reports: No Symptoms Neurological: Reports: Other (left arm weakness is better) Psychiatric: Reports: Confusion (thinks he is in [place]) - Patient Data Weight - Most Recent: 182 lb 4.8 oz - Exam Quality Assessment: Supplemental Oxygen, DVT Prophylaxis General: Alert, Cooperative, No Acute Distress. No: Oriented (thinks he is in [place]) HEENT: Pupils Equal, Mucous Membr. Moist/[place] Neck: Supple, Trachea Midline. No: Lymphadenopathy Lungs: Normal Respiratory Effort, Crackles (bilaterally posteriorly) Cardiovascular: Regular Rate, Regular Rhythm, No Murmurs GI/Abdominal Exam: Normal Bowel Sounds, Soft, Non-Tender, No Distention (Male) Exam: Deferred Back Exam: Normal Inspection, Full Range of Motion Extremities: Normal Inspection, Normal Range of Motion, Non-Tender, Normal Capillary Refill Sepsis Event Note - Evaluation Sepsis Screening Result: No Definite Risk - Problem List & Annotations (1) COVID-19 SNOMED Code(s): 315342973 Code(s): U07.1 - COVID-19 Status: Acute Priority: High Current Visit: Yes (2) Hypoxia SNOMED Code(s): 018789730 Code(s): R09.02 - HYPOXEMIA Status: Acute Priority: High Current Visit: Yes (3) Renal insufficiency SNOMED Code(s): 594297279, 682316759 Code(s): N28.9 - DISORDER OF KIDNEY AND URETER, UNSPECIFIED Status: Acute Priority: High Current Visit: Yes (4) Anorexia SNOMED Code(s): 42291758 Code(s): R63.0 - ANOREXIA Status: Acute Priority: High Current Visit: Yes (5) Diarrhea SNOMED Code(s): 70732820 Code(s): R19.7 - DIARRHEA, UNSPECIFIED Status: Acute Priority: High Current Visit: Yes Qualifiers: Diarrhea type: unspecified type Qualified Code(s): R19.7 - Diarrhea, unspecified (6) Generalized weakness SNOMED Code(s): 50378688 Code(s): R53.1 - WEAKNESS Status: Acute Priority: High Current Visit: Yes (7) Weakness of left upper extremity SNOMED Code(s): 253962194 Code(s): R29.898 - OT SYMPTOMS AND SIGNS INVOLVING THE MUSCULOSKELETAL SYSTEM Status: Acute Priority: High Current Visit: Yes - Problem List Review Problem List Initiated/Reviewed/Updated: Yes - My Orders Last 24 Hours: My Active Orders 04/03/20 14:17 PT Evaluation and Treatment [CONS] Routine - Assessment Assessment:: 03/29/20 ASSESSMENT COVID-19 Generalized weakness Diarrhea Anorexia -feeling much worse today. -very weak, bedrest today -decreased appetite Hypoxia -O2 now at 2L/nc, was 5 liters overnight -crackles bilateral posterior Renal insufficiency -1.5 week history of decreased po intake with diarrhea -Cre 1.5 -BUN 17 -GFR 44 Vital Signs: * T max 99.1, HR 75, BP 118/64, RR 16, 94% on 2L/NC Labs: * WBC 4.55 * HGB 12.8 * Na 138 * K+ 4.0 * Mg 2.0 * BUN 17 * Creat 1.5 * GFR 44 03/30/2020 COVID-19 pneumonia with secondary hypoxemia * CT angiogram of the chest showed patchy areas of increased density on both sides of the chest consistent with pneumonia. This could be either bacterial or viral. * Hypoxemia is certainly better today. Oxygen saturations are in the low 90s on room air. * Currently on remdesivir, Rocephin, azithromycin, and dexamethasone * Received 2 units of convalescent plasma * WBC 3.66, C-reactive protein 4.6 Pulmonary embolism * Patient was noncompliant with his Xarelto for 3 days. * Patient also missed the morning of the when he was transferred from the emergency department to the medical floor. * D-dimer increased from 4 to 23. * Patient's hypoxemia is actually improved today after restarting Xarelto yesterday. Generalized weakness with diarrhea and anorexia * Significant improvement in all 3 conditions. * Hemoglobin 11.8 Chronic renal insufficiencyimproved * BUN 19, creatinine 1.2, GFR 57 03/31/2020 COVID-19 pneumonia with improving hypoxemia * Afebrile * Continued improvement in oxygen saturations and respiratory status. * Current treatment includes remdesivir, Rocephin, and dexamethasone. * Completed azithromycin and received 2 units of convalescent plasma. * WBC 5.5 Pulmonary embolism right lung * Restarted Xarelto at 20 mg daily. * Decision was to not switch to 50 mg twice daily because he was having bleeding side effects, epistaxis, on the 20 mg daily. Also, he has significant improvement in just 24 hours after restarting Xarelto 20 mg. Generalized weakness with diarrhea and anorexia * Anorexia is improved. * Patient continues to complain of generalized weakness * Frequency of bowel movements has decreased. * Hemoglobin 12.1 Chronic renal insufficiency * Estimated GFR greater than 60. * BUN 26, creatinine 1.1 VTE prophylaxis: pt takes Xarelto Code Status: FULL CODE 04/01/2020 COVID-19 pneumonia with improving hypoxemia * Afebrile * on room air * Current treatment includes remdesivir, Rocephin, and dexamethasone. * Completed azithromycin and received 2 units of convalescent plasma. * WBC 6.9 Pulmonary embolism right lung * Xarelto * D-dimer 4.25 Generalized weakness with diarrhea and anorexia * reports poor appetite. Does enjoy protein supplements. * Patient continues to complain of generalized weakness * Reporting diarrhea stools x 2 daily * Hemoglobin 12.1 * K+ 3.4 today. Oral replacement ordered. Chronic renal insufficiency * Estimated GFR greater than 60. * BUN 24, creatinine 1.1 VTE prophylaxis: pt takes Xarelto Code Status: FULL CODE 04/02/2020 COVID-19 pneumonia with improving hypoxemia * Afebrile * on room air * Current treatment includes remdesivir, Rocephin, and dexamethasone. * Completed azithromycin and received 2 units of convalescent plasma. * WBC 7.29 Pulmonary embolism right lung * Xarelto Generalized weakness with diarrhea and anorexia * reports poor appetite. Does enjoy protein supplements. * Patient continues to complain of generalized weakness * Reporting diarrhea stools x 2 daily * Hemoglobin 12.6 * K+ 4.2today. Chronic renal insufficiency * Estimated GFR greater than 60. * BUN 23, creatinine 1.1 VTE prophylaxis: pt takes Xarelto Code Status: FULL CODE 04/03/2020 COVID-19 pneumonia with improving hypoxemia * Afebrile * on room air * Current treatment includes dexamethasone. * Completed azithromycin, Rocephin, remdesivir and received 2 units of convalescent plasma. * WBC 8.64 * Hgb 13.4 * D-dimer 1.80 * CRP 1.0 * CXR continuing focal interstitial change within the right midlung. Mild area of persisting pneumonia is possible. Lesser interstitial change within the left base which is most likely chronic. Lungs otherwise clear. Pulmonary embolism right lung * Xarelto Generalized weakness with diarrhea and anorexia * still taking po poorly. Taking protein supplements. * has not had any stools today * K+ 3.7 Oral dose of potassium ordered for today. Chronic renal insufficiency * Estimated GFR greater than 60. * BUN 24, creatinine 1.1 Weakness of left upper extremity * new onset weakness of left arm with inability to grasp objects. Unable to lift left arm without assistance. Neuro assessment otherwise unremarkable. * CT head ordered stat. 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 These findings are stable from prior head CT study. Other senescent change noted but this is also stable. Nothing acute is appreciated. 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 No acute diffusion abnormalities are seen. No abnormal enhancement in seen. PROPHYLAXIS DTE: pt takes Xarelto GI: not applicable CODE STATUS: FULL CODE 04/04/20 Back on 1 liter of oxygen. Increased movement of left upper extremity Carotid ultrasound mild to moderate amount of plaque noted within the left carotid bulb extending into the internal carotid artery. Small amount of plaque noted within the left carotid bulb. Plaque on the left side has irregular surface margins. Plaque on the right side has smother surface margins. Velocity measurements within both internal carotid arteries correspond to stenosis in the range of 1-49 percent. Vital signs trend -Blood pressure: 124-150/62-96 -T-max 97.9 -Heart rate: 52-67 -Pulse ox 92%-95% on 1 liter O2 Lab Results WBC up from 8.64-9.54 Hgb down from 13.4-12.8 K+ up from 3.7 to 4.0 Mg up from 2.0-2.1 BUN down from 24-23 Cre 1.1 GFR >60 PLAN -continue dexamethasone day 7 -monitor for hypoxemia -qualify for home O2 -continue home statin -renally dosed medications - Plan Plan:: COVID-19 pneumonia with hypoxemiaimproved Generalized weakness -improved Diarrhea -improved Anorexia-improved * MSP status with telemetry * monitor I&O, daily weights, vital signs * tylenol for fever control and comfort * zofran prn for nausea * poor po intake, eating protein supplements * PT/OT for discharge planning * Decadron day * FiO2 to keep SPO2 between 88 and 94% * Currently on 1 liter-qualify for home O2 today * Albuterol nebulizer Q 2 hours as needed for wheezing * incentive spirometer Q1 hour while awake Pulmonary embolism * Continue Xarelto 20 mg daily * Appears to be secondary to noncompliance with Xarelto. * on 1 liter of O2 Acute on chronic renal insufficiency-improved * avoid nephrotoxic medications * monitor kidney function Weakness of left upper extremity * PT/OT working with the patient Prophylaxis DVT-Xarelto GI- not applicable CODE STATUS: FULL CODE Disposition: Length of stay greater than 96 hours due to hypoxemia, COVID-19, pulmonary embolism.
[2020-04-04] MEDS: Nortriptyline 25 MG Cap PO SCH (20:33)
[2020-04-04] MEDS: Simvastatin 20 MG Tab PO SCH (20:33)
[2020-04-05] MEDS: Magnesium Hydroxide 400 MG/5 ML Susp 30 ML Cup PO PRN (04:42)
[2020-04-05] MEDS: Propranolol 60 MG Cap.ER PO SCH (08:31)
[2020-04-05] MEDS: Cholecalciferol (Vitamin D3) 25 MCG Tab PO SCH (08:31)
[2020-04-05] MEDS: Rivaroxaban 10 MG Tab PO SCH (08:31)
[2020-04-05] MEDS: rOPINIRole 1 MG Tab PO SCH ×2 (08:32→21:41)
[2020-04-05] MEDS: Dexamethasone 4 MG Tab PO SCH (08:33)
--- NOTE | 2020-04-05 13:42 | PCM.PN ---
- General Info Date of Service: 04/05/20 Admission Dx/Problem (Free Text): Admission Diagnosis/Problem Admission Diagnosis/Problem Hypoxia Subjective Update: Weaker today. Less alert. States he feels tired despite sleeping well last night. Still has a poor appetite. Back up to 2 liters of O2. Functional Status: Reports: Pain Controlled, Urinating, Incentive Spirometry. Denies: Tolerating Diet (poor appetite) - Review of Systems General: Reports: Weakness, Fatigue. Denies: Appetite (poor) HEENT: Reports: No Symptoms Pulmonary: Reports: Shortness of Breath, Cough. Denies: Pleuritic Chest Pain, Sputum Cardiovascular: Reports: Dyspnea on Exertion. Denies: Chest Pain, Palpitations, Edema Gastrointestinal: Reports: Decreased Appetite. Denies: Abdominal Pain, Constipation, Diarrhea, Nausea, Vomiting Genitourinary: Reports: No Symptoms Musculoskeletal: Reports: No Symptoms Neurological: Reports: No Symptoms Psychiatric: Reports: No Symptoms - Patient Data Weight - Most Recent: 182 lb 4.8 oz - Exam Quality Assessment: Supplemental Oxygen, DVT Prophylaxis (xarelto) General: Oriented, Cooperative, Mild Distress, Lethargic HEENT: Pupils Equal, Mucous Membr. Moist/[place] Neck: Supple, Trachea Midline. No: Lymphadenopathy Lungs: Decreased Breath Sounds, Crackles (right middle and lower lobe) Cardiovascular: Regular Rate, Regular Rhythm, No Murmurs GI/Abdominal Exam: Normal Bowel Sounds, Soft, Non-Tender (Male) Exam: Deferred Back Exam: Normal Inspection, Full Range of Motion Extremities: Normal Inspection, Normal Range of Motion, Non-Tender, No Pedal Edema, Normal Capillary Refill Peripheral Pulses: 2+: Radial (L), Radial (R), Dorsalis Pedis (L), Dorsalis Pedis (R) Skin: Warm, Dry, Intact Neurological: No New Focal Deficit Psy/Mental Status: Alert, Normal Affect, Normal Mood Sepsis Event Note - Evaluation Sepsis Screening Result: No Definite Risk - Problem List & Annotations (1) COVID-19 SNOMED Code(s): 430191101 Code(s): U07.1 - COVID-19 Status: Acute Priority: High Current Visit: Yes (2) Hypoxia SNOMED Code(s): 726809998 Code(s): R09.02 - HYPOXEMIA Status: Acute Priority: High Current Visit: Yes (3) Renal insufficiency SNOMED Code(s): 257064743, 808912571 Code(s): N28.9 - DISORDER OF KIDNEY AND URETER, UNSPECIFIED Status: Acute Priority: High Current Visit: Yes (4) Anorexia SNOMED Code(s): 75610319 Code(s): R63.0 - ANOREXIA Status: Acute Priority: High Current Visit: Yes (5) Diarrhea SNOMED Code(s): 74325113 Code(s): R19.7 - DIARRHEA, UNSPECIFIED Status: Acute Priority: High Current Visit: Yes Qualifiers: Diarrhea type: unspecified type Qualified Code(s): R19.7 - Diarrhea, unspecified (6) Generalized weakness SNOMED Code(s): 16536127 Code(s): R53.1 - WEAKNESS Status: Acute Priority: High Current Visit: Yes (7) Weakness of left upper extremity SNOMED Code(s): 200662140 Code(s): R29.898 - OTH SYMPTOMS AND SIGNS INVOLVING THE MUSCULOSKELETAL SYSTEM Status: Acute Priority: High Current Visit: Yes - Problem List Review Problem List Initiated/Reviewed/Updated: Yes - My Orders Last 24 Hours: My Active Orders 04/05/20 12:42 CTA Chest W WO Contrast [Ang Chest] [CT] Stat - Assessment Assessment:: 03/29/20 ASSESSMENT COVID-19 Generalized weakness Diarrhea Anorexia -feeling much worse today. -very weak, bedrest today -decreased appetite Hypoxia -O2 now at 2L/nc, was 5 liters overnight -crackles bilateral posterior Renal insufficiency -1.5 week history of decreased po intake with diarrhea -Cre 1.5 -BUN 17 -GFR 44 Vital Signs: * T max 99.1, HR 75, BP 118/64, RR 16, 94% on 2L/NC Labs: * WBC 4.55 * HGB 12.8 * Na 138 * K+ 4.0 * Mg 2.0 * BUN 17 * Creat 1.5 * GFR 44 03/30/2020 COVID-19 pneumonia with secondary hypoxemia * CT angiogram of the chest showed patchy areas of increased density on both sides of the chest consistent with pneumonia. This could be either bacterial or viral. * Hypoxemia is certainly better today. Oxygen saturations are in the low 90s on room air. * Currently on remdesivir, Rocephin, azithromycin, and dexamethasone * Received 2 units of convalescent plasma * WBC 3.66, C-reactive protein 4.6 Pulmonary embolism * Patient was noncompliant with his Xarelto for 3 days. * Patient also missed the morning of the when he was transferred from the emergency department to the medical floor. * D-dimer increased from 4 to 23. * Patient's hypoxemia is actually improved today after restarting Xarelto yesterday. Generalized weakness with diarrhea and anorexia * Significant improvement in all 3 conditions. * Hemoglobin 11.8 Chronic renal insufficiencyimproved * BUN 19, creatinine 1.2, GFR 57 03/31/2020 COVID-19 pneumonia with improving hypoxemia * Afebrile * Continued improvement in oxygen saturations and respiratory status. * Current treatment includes remdesivir, Rocephin, and dexamethasone. * Completed azithromycin and received 2 units of convalescent plasma. * WBC 5.5 Pulmonary embolism right lung * Restarted Xarelto at 20 mg daily. * Decision was to not switch to 50 mg twice daily because he was having bleeding side effects, epistaxis, on the 20 mg daily. Also, he has significant improvement in just 24 hours after restarting Xarelto 20 mg. Generalized weakness with diarrhea and anorexia * Anorexia is improved. * Patient continues to complain of generalized weakness * Frequency of bowel movements has decreased. * Hemoglobin 12.1 Chronic renal insufficiency * Estimated GFR greater than 60. * BUN 26, creatinine 1.1 VTE prophylaxis: pt takes Xarelto Code Status: FULL CODE 04/01/2020 COVID-19 pneumonia with improving hypoxemia * Afebrile * on room air * Current treatment includes remdesivir, Rocephin, and dexamethasone. * Completed azithromycin and received 2 units of convalescent plasma. * WBC 6.9 Pulmonary embolism right lung * Xarelto * D-dimer 4.25 Generalized weakness with diarrhea and anorexia * reports poor appetite. Does enjoy protein supplements. * Patient continues to complain of generalized weakness * Reporting diarrhea stools x 2 daily * Hemoglobin 12.1 * K+ 3.4 today. Oral replacement ordered. Chronic renal insufficiency * Estimated GFR greater than 60. * BUN 24, creatinine 1.1 VTE prophylaxis: pt takes Xarelto Code Status: FULL CODE 04/02/2020 COVID-19 pneumonia with improving hypoxemia * Afebrile * on room air * Current treatment includes remdesivir, Rocephin, and dexamethasone. * Completed azithromycin and received 2 units of convalescent plasma. * WBC 7.29 Pulmonary embolism right lung * Xarelto Generalized weakness with diarrhea and anorexia * reports poor appetite. Does enjoy protein supplements. * Patient continues to complain of generalized weakness * Reporting diarrhea stools x 2 daily * Hemoglobin 12.6 * K+ 4.2today. Chronic renal insufficiency * Estimated GFR greater than 60. * BUN 23, creatinine 1.1 VTE prophylaxis: pt takes Xarelto Code Status: FULL CODE 04/03/2020 COVID-19 pneumonia with improving hypoxemia * Afebrile * on room air * Current treatment includes dexamethasone. * Completed azithromycin, Rocephin, remdesivir and received 2 units of convalescent plasma. * WBC 8.64 * Hgb 13.4 * D-dimer 1.80 * CRP 1.0 * CXR continuing focal interstitial change within the right midlung. Mild area of persisting pneumonia is possible. Lesser interstitial change within the left base which is most likely chronic. Lungs otherwise clear. Pulmonary embolism right lung * Xarelto Generalized weakness with diarrhea and anorexia * still taking po poorly. Taking protein supplements. * has not had any stools today * K+ 3.7 Oral dose of potassium ordered for today. Chronic renal insufficiency * Estimated GFR greater than 60. * BUN 24, creatinine 1.1 Weakness of left upper extremity * new onset weakness of left arm with inability to grasp objects. Unable to lift left arm without assistance. Neuro assessment otherwise unremarkable. * CT head ordered stat. 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 These findings are stable from prior head CT study. Other senescent change noted but this is also stable. Nothing acute is appreciated. 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 No acute diffusion abnormalities are seen. No abnormal enhancement in seen. PROPHYLAXIS DTE: pt takes Xarelto GI: not applicable CODE STATUS: FULL CODE 04/04/20 Back on 1 liter of oxygen. Increased movement of left upper extremity Carotid ultrasound mild to moderate amount of plaque noted within the left carotid bulb extending into the internal carotid artery. Small amount of plaque noted within the left carotid bulb. Plaque on the left side has irregular surface margins. Plaque on the right side has smother surface margins. Velocity measurements within both internal carotid arteries correspond to stenosis in the range of 1-49 percent. Vital signs trend -Blood pressure: 124-150/62-96 -T-max 97.9 -Heart rate: 52-67 -Pulse ox 92%-95% on 1 liter O2 Lab Results WBC up from 8.64-9.54 Hgb down from 13.4-12.8 K+ up from 3.7 to 4.0 Mg up from 2.0-2.1 BUN down from 24-23 Cre 1.1 GFR >60 PLAN -continue dexamethasone day 7 -monitor for hypoxemia -qualify for home O2 -continue home statin -renally dosed medications 04/05/20 Back on 2 liter of oxygen. More fatigued today Increased need for O2 CTA ordered ABG's ordered Vital signs trend -Blood pressure:111-142/58-69 -T-max 97.5 -Heart rate: 58-80 -Pulse ox 93% on 2 Liters Lab Results WBC up from 9.54-12.59 Ddimer down from 1.80-1.28 BUN up from 23-26 Cre up from 1.1 to 1.2 GFR down from >60 to 57 CRP down from 1.0 to 0.7 PLAN -continue dexamethasone day 8 -monitor for hypoxemia -CTA of chest -continue home statin -renally dosed medications - Plan Plan:: COVID-19 pneumonia with hypoxemiaimproved Generalized weakness -improved Diarrhea -improved Anorexia-improved * MSP status with telemetry due to continuous pulse ox monitoring * monitor I&O, daily weights, vital signs * tylenol for fever control and comfort * zofran prn for nausea * poor po intake, eating protein supplements * PT/OT for discharge planning * Decadron day * FiO2 to keep SPO2 between 88 and 94% * Currently on 2 liter * Albuterol nebulizer Q 2 hours as needed for wheezing * incentive spirometer Q1 hour while awake Pulmonary embolism * Continue Xarelto 20 mg daily * Appears to be secondary to noncompliance with Xarelto. * increased to 2 liters per nasal cannula * CTA ordered * ABG's ordered Acute on chronic renal insufficiency-improved * avoid nephrotoxic medications * monitor kidney function Weakness of left upper extremity * PT/OT working with the patient Prophylaxis DVT-Xarelto GI- not applicable CODE STATUS: FULL CODE Disposition: Length of stay greater than 96 hours due to hypoxemia, COVID-19, pulmonary embolism.
--- NOTE | 2020-04-05 14:19 | CT ---
CT chest Multiple axial sections through the chest were obtained. Intravenous contrast was utilized. Study has been performed as a pulmonary angiogram protocol. Findings: Pulmonary arteries are well-opacified. No filling defects are seen to indicate pulmonary embolism. Atherosclerotic calcification within the aorta is noted. No aneurysm is seen. Small mediastinal lymph nodes are noted believed to be within normal limits. Degenerative change noted within both glenohumeral joints. Scattered mild degenerative change is seen within the spine. No acute osseous abnormality is appreciated. Patchy areas of increased density are noted on both sides of the chest. Findings are suspicious for viral pneumonia. Impression: 1. No findings of pulmonary embolism. 2. Patchy increased density on both sides of the chest suspicious for viral pneumonia. Please correlate if patient is Covid positive. 3. Other findings which are nonacute as described above. Diagnostic code #3 Study was dictated in MDT
[2020-04-05] MEDS ORDERED: Iopamidol 755 Mg/ML 100 ML Bottle IVPUSH ONE ×2 (14:25→15:38)
[2020-04-05] MEDS ORDERED: Sodium Chloride 0.9% 10 ML Syringe FLUSH PRN (14:25)
[2020-04-05] MEDS ORDERED: Sodium Chloride 0.9% 100 ML IV SCH (14:30)
[2020-04-05] MEDS ORDERED: Piperacillin/Tazobactam 4.5 GM in Sodium Chloride 0.9% 100 ML IV ONE (15:30)
[2020-04-05] MEDS ORDERED: Levofloxacin 750 MG Tab PO SCH (16:00)
[2020-04-05] MEDS ORDERED: Vancomycin 1 GM, Vancomycin 500 MG in Sodium Chloride 0.9% 500 ML IV ONE (16:00)
[2020-04-05] MEDS ORDERED: Bisacodyl 10 MG Supp RECTAL ONE (21:00)
[2020-04-05] MEDS: Nortriptyline 25 MG Cap PO SCH (21:41)
[2020-04-05] MEDS: Simvastatin 20 MG Tab PO SCH (21:41)
[2020-04-05] MEDS: Piperacillin/Tazobactam 4.5 GM in Sodium Chloride 0.9% 100 ML IV SCH (22:55)
[2020-04-06] MEDS: Piperacillin/Tazobactam 4.5 GM in Sodium Chloride 0.9% 100 ML IV SCH (07:09)
[2020-04-06] MEDS: Dexamethasone 4 MG Tab PO SCH (08:58)
[2020-04-06] MEDS: Rivaroxaban 10 MG Tab PO SCH (08:59)
[2020-04-06] MEDS: Cholecalciferol (Vitamin D3) 25 MCG Tab PO SCH (08:59)
[2020-04-06] MEDS: rOPINIRole 1 MG Tab PO SCH ×2 (08:59→21:41)
[2020-04-06] MEDS: Propranolol 60 MG Cap.ER PO SCH (08:59)
[2020-04-06] MEDS ORDERED: Vancomycin 1 GM, Vancomycin 250 MG in Sodium Chloride 0.9% 250 ML IV SCH (10:00)
--- NOTE | 2020-04-06 13:27 | PCM.PN ---
- General Info Date of Service: 04/06/20 Subjective Update: Feeling better Tolerating diet Bowel movement yesterday Slept okay - Patient Data Vitals - Most Recent: Last Vital Signs Temp 97.3 F 04/06/20 10:55 Pulse 54 L 04/06/20 10:55 Resp 20 04/06/20 10:55 BP 110/55 L 04/06/20 10:55 Pulse Ox 94 L 04/06/20 10:55 Weight - Most Recent: 85.139 kg - Exam Quality Assessment: Supplemental Oxygen, Urine Catheter General: Alert, Oriented, Cooperative HEENT: Pupils Equal, Pupils Reactive, EOMI, Mucous Membr. Moist/[place] Neck: Supple, Trachea Midline, No JVD Lungs: Clear to Auscultation, Normal Respiratory Effort, Crackles. No: Rales (Very occasional), Rhonchi, Rub, Stridor, Wheezing Cardiovascular: Regular Rate, Regular Rhythm GI/Abdominal Exam: Normal Bowel Sounds, Soft, Non-Tender. No: Distended, Guarding, Rigid Peripheral Pulses: 2+: Radial (L), Radial (R) Skin: Warm, Dry, Intact Neurological: No New Focal Deficit Psy/Mental Status: Normal Affect, Normal Mood Sepsis Event Note - Evaluation Sepsis Screening Result: No Definite Risk - Problem List & Annotations (1) Acute hypoxemic respiratory failure SNOMED Code(s): 063222295 Code(s): J96.01 - ACUTE RESPIRATORY FAILURE WITH HYPOXIA Status: Acute Current Visit: Yes (2) Pneumonia due to COVID-19 virus SNOMED Code(s): 679802725 Code(s): U07.1 - COVID-19; J12.89 - OTHER VIRAL PNEUMONIA Status: Acute Current Visit: Yes (3) Acute kidney injury SNOMED Code(s): 89341852, 21497999 Code(s): N17.9 - ACUTE KIDNEY FAILURE, UNSPECIFIED Status: Acute Current Visit: Yes (4) Chronic anticoagulation SNOMED Code(s): 858533733 Code(s): 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 Status: Acute Current Visit: Yes (5) Anorexia SNOMED Code(s): 87079755 Code(s): R63.0 - ANOREXIA Status: Acute Priority: High Current Visit: Yes (6) Diarrhea SNOMED Code(s): 21391219 Code(s): R19.7 - DIARRHEA, UNSPECIFIED Status: Acute Priority: High Current Visit: Yes Qualifiers: Diarrhea type: unspecified type Qualified Code(s): R19.7 - Diarrhea, unspecified (7) PE, Pulmonary embolism SNOMED Code(s): 74782538 Code(s): I26.99 - OTHER PULMONARY EMBOLISM WITHOUT ACUTE COR PULMONALE Status: Acute Current Visit: No (8) Healthcare-associated pneumonia SNOMED Code(s): 243464043, 833194837 Code(s): J18.9 - PNEUMONIA, UNSPECIFIED ORGANISM Status: Acute Current Visit: Yes - Problem List Review Problem List Initiated/Reviewed/Updated: Yes - Assessment Assessment:: 03/29/20 ASSESSMENT COVID-19 Generalized weakness Diarrhea Anorexia -feeling much worse today. -very weak, bedrest today -decreased appetite Hypoxia -O2 now at 2L/nc, was 5 liters overnight -crackles bilateral posterior Renal insufficiency -1.5 week history of decreased po intake with diarrhea -Cre 1.5 -BUN 17 -GFR 44 Vital Signs: -T max 99.1, HR 75, BP 118/64, RR 16, 94% on 2L/NC Labs: * WBC 4.55 * HGB 12.8 * Na 138 * K+ 4.0 * Mg 2.0 * BUN 17 * Creat 1.5 * GFR 44 03/30/2020 COVID-19 pneumonia with secondary hypoxemia * CT angiogram of the chest showed patchy areas of increased density on both sides of the chest consistent with pneumonia. This could be either bacterial or viral. * Hypoxemia is certainly better today. Oxygen saturations are in the low 90s on room air. * Currently on remdesivir, Rocephin, azithromycin, and dexamethasone * Received 2 units of convalescent plasma * WBC 3.66, C-reactive protein 4.6 Pulmonary embolism * Patient was noncompliant with his Xarelto for 3 days. * Patient also missed the morning of the when he was transferred from the emergency department to the medical floor. * D-dimer increased from 4 to 23. * Patient's hypoxemia is actually improved today after restarting Xarelto yesterday. Generalized weakness with diarrhea and anorexia * Significant improvement in all 3 conditions. * Hemoglobin 11.8 Chronic renal insufficiencyimproved * BUN 19, creatinine 1.2, GFR 57 03/31/2020 COVID-19 pneumonia with improving hypoxemia * Afebrile * Continued improvement in oxygen saturations and respiratory status. * Current treatment includes remdesivir, Rocephin, and dexamethasone. * Completed azithromycin and received 2 units of convalescent plasma. * WBC 5.5 Pulmonary embolism right lung * Restarted Xarelto at 20 mg daily. * Decision was to not switch to 50 mg twice daily because he was having bleeding side effects, epistaxis, on the 20 mg daily. Also, he has significant improvement in just 24 hours after restarting Xarelto 20 mg. Generalized weakness with diarrhea and anorexia * Anorexia is improved. * Patient continues to complain of generalized weakness * Frequency of bowel movements has decreased. * Hemoglobin 12.1 Chronic renal insufficiency * Estimated GFR greater than 60. * BUN 26, creatinine 1.1 04/01/2020 COVID-19 pneumonia with improving hypoxemia * Afebrile * on room air * Current treatment includes remdesivir, Rocephin, and dexamethasone. * Completed azithromycin and received 2 units of convalescent plasma. * WBC 6.9 Pulmonary embolism right lung * Xarelto * D-dimer 4.25 Generalized weakness with diarrhea and anorexia * reports poor appetite. Does enjoy protein supplements. * Patient continues to complain of generalized weakness * Reporting diarrhea stools x 2 daily * Hemoglobin 12.1 * K+ 3.4 today. Oral replacement ordered. Chronic renal insufficiency * Estimated GFR greater than 60. * BUN 24, creatinine 1.1 04/02/2020 COVID-19 pneumonia with improving hypoxemia * Afebrile * on room air * Current treatment includes remdesivir, Rocephin, and dexamethasone. * Completed azithromycin and received 2 units of convalescent plasma. * WBC 7.29 Pulmonary embolism right lung * Xarelto Generalized weakness with diarrhea and anorexia * reports poor appetite. Does enjoy protein supplements. * Patient continues to complain of generalized weakness * Reporting diarrhea stools x 2 daily * Hemoglobin 12.6 * K+ 4.2today. Chronic renal insufficiency * Estimated GFR greater than 60. * BUN 23, creatinine 1.1 04/03/2020 COVID-19 pneumonia with improving hypoxemia * Afebrile * on room air * Current treatment includes dexamethasone. * Completed azithromycin, Rocephin, remdesivir and received 2 units of convalescent plasma. * WBC 8.64 * Hgb 13.4 * D-dimer 1.80 * CRP 1.0 * CXR continuing focal interstitial change within the right midlung. Mild area of persisting pneumonia is possible. Lesser interstitial change within the left base which is most likely chronic. Lungs otherwise clear. Pulmonary embolism right lung * Xarelto Generalized weakness with diarrhea and anorexia * still taking po poorly. Taking protein supplements. * has not had any stools today * K+ 3.7 Oral dose of potassium ordered for today. Chronic renal insufficiency * Estimated GFR greater than 60. * BUN 24, creatinine 1.1 Weakness of left upper extremity * new onset weakness of left arm with inability to grasp objects. Unable to lift left arm without assistance. Neuro assessment otherwise unremarkable. * CT head ordered stat. 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 These findings are stable from prior head CT study. Other senescent change noted but this is also stable. Nothing acute is appreciated. 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 No acute diffusion abnormalities are seen. No abnormal enhancement in seen. 04/04/20 Back on 1 liter of oxygen. Increased movement of left upper extremity Carotid ultrasound mild to moderate amount of plaque noted within the left carotid bulb extending into the internal carotid artery. Small amount of plaque noted within the left carotid bulb. Plaque on the left side has irregular surface margins. Plaque on the right side has smother surface margins. Velocity measurements within both internal carotid arteries correspond to stenosis in the range of 1-49 percent. Vital signs trend -Blood pressure: 124-150/62-96 -T-max 97.9 -Heart rate: 52-67 -Pulse ox 92%-95% on 1 liter O2 Lab Results WBC up from 8.64-9.54 Hgb down from 13.4-12.8 K+ up from 3.7 to 4.0 Mg up from 2.0-2.1 BUN down from 24-23 Cre 1.1 GFR >60 PLAN -continue dexamethasone day 7 -monitor for hypoxemia -qualify for home O2 -continue home statin -renally dosed medications 04/05/20 More fatigued today with increased need for O2 up to 2 L CTA ordered reported negative for clots ABG's ordered no significant abnormalities Vital signs trend -Blood pressure:111-142/58-69 -T-max 97.5 -Heart rate: 58-80 -Pulse ox 93% on 2 Liters Lab Results WBC up from 9.54-12.59 Ddimer down from 1.80-1.28 BUN up from 23-26 Cre up from 1.1 to 1.2 GFR down from >60 to 57 CRP down from 1.0 to 0.7 PLAN -continue dexamethasone day 8 -monitor for hypoxemia -CTA of chest -continue home statin -renally dosed medications Due to high requirements of oxygen and mild increase in white count with toxic granulation patient was started on triple antibiotic coverage for hospital- acquired pneumonia and procalcitonin was ordered 04/06/20 Continues to require 2 L nasal cannula Vital signs trend Blood pressure: 1131 36/50 4-70 T-max 97.9 Heart rate 55 to 60 bpm Pulse ox greater than 89% I's and O's Urine output 1100 24-hour balance +480 Lab results Procalcitonin was negative - Plan Plan:: Healthcare associated pneumonia Pulmonary embolism, on Xarelto Acute hypoxemic respiratory failure, worsening Continue Levaquin, vancomycin and Zosyn Follow-up on procalcitonin level Continue oxygen supplementation via nasal cannula Continue Xarelto Pneumonia due to COVID-19 virus, completed treatment Day 9 out of 10 of dexamethasone PRN albuterol Acute kidney injury, resolved Anorexia, resolved Diarrhea, resolved Acute weakness of left upper extremity, resolved PROPHYLAXIS DVT-Xarelto GI- not indicated CODE STATUS: FULL CODE DISPOSITION: Patient admitted 9 days ago for COVID pneumonia who completed Remdesivir treatment and received plasma infusions. 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 He will complete 10 days of dexamethasone course tomorrow. Has requested outpatient physical therapy which has been set up by social work. Discharge in the morning is likely.
[2020-04-06] MEDS: Nortriptyline 25 MG Cap PO SCH (21:41)
[2020-04-06] MEDS: Simvastatin 20 MG Tab PO SCH (21:41)
[2020-04-07] MEDS: Cholecalciferol (Vitamin D3) 25 MCG Tab PO SCH (08:10)
[2020-04-07] MEDS: Dexamethasone 4 MG Tab PO SCH (08:10)
[2020-04-07] MEDS: Rivaroxaban 10 MG Tab PO SCH (08:11)
[2020-04-07] MEDS: rOPINIRole 1 MG Tab PO SCH ×2 (08:11→21:04)
[2020-04-07] MEDS: Propranolol 60 MG Cap.ER PO SCH (08:12)
--- NOTE | 2020-04-07 08:30 | PCM.PN ---
- General Info Date of Service: 04/07/20 Subjective Update: Slept okay Feels a lot better Tolerating diet Bowel movement yesterday Is very excited his family is coming to visit him today - Patient Data Vitals - Most Recent: Last Vital Signs Temp 98.6 F 04/07/20 06:11 Pulse 59 L 04/07/20 06:12 Resp 16 04/07/20 06:11 BP 108/54 L 04/07/20 06:11 Pulse Ox 93 L 04/07/20 06:12 Weight - Most Recent: 82.781 kg - Exam Quality Assessment: Supplemental Oxygen General: Alert, Oriented, Cooperative, No Acute Distress HEENT: Pupils Equal, Pupils Reactive, EOMI, Mucous Membr. Moist/[place] Neck: Supple, Trachea Midline, No JVD, No Thyromegaly Lungs: Clear to Auscultation, Normal Respiratory Effort, Crackles (very occasional on L base). No: Decreased Breath Sounds, Rales, Rhonchi, Rub, Stridor, Wheezing Cardiovascular: Regular Rate, Regular Rhythm. No: Murmurs, Gallops, Rubs GI/Abdominal Exam: Normal Bowel Sounds, Soft, Non-Tender, No Organomegaly, No Distention Back Exam: Normal Inspection. No: CVA Tenderness (L), CVA Tenderness (R), Paraspinal Tenderness, Vertebral Tenderness Extremities: Normal Inspection, Normal Range of Motion, Non-Tender, No Pedal Edema, Normal Capillary Refill Peripheral Pulses: 2+: Radial (L), Radial (R), Dorsalis Pedis (L), Dorsalis Pedis (R) Skin: Warm, Dry, Intact Neurological: No New Focal Deficit Psy/Mental Status: Normal Mood (Improved) Sepsis Event Note - Evaluation Sepsis Screening Result: No Definite Risk - Problem List & Annotations (1) Acute hypoxemic respiratory failure SNOMED Code(s): 886126501 Code(s): J96.01 - ACUTE RESPIRATORY FAILURE WITH HYPOXIA Status: Acute Current Visit: Yes (2) Pneumonia due to COVID-19 virus SNOMED Code(s): 391578775 Code(s): U07.1 - COVID-19; J12.89 - OTHER VIRAL PNEUMONIA Status: Acute Current Visit: Yes (3) Acute kidney injury SNOMED Code(s): 63841477, 96189635 Code(s): N17.9 - ACUTE KIDNEY FAILURE, UNSPECIFIED Status: Acute Current Visit: Yes (4) Chronic anticoagulation SNOMED Code(s): 621468570 Code(s): Z79.01 - PROVIDER RELATIONS MANAGER (CURRENT) USE OF 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 Status: Acute Current Visit: Yes (5) Anorexia SNOMED Code(s): 16779966 Code(s): R63.0 - ANOREXIA Status: Acute Priority: High Current Visit: Yes (6) Diarrhea SNOMED Code(s): 64982223 Code(s): R19.7 - DIARRHEA, UNSPECIFIED Status: Acute Priority: High Current Visit: Yes Qualifiers: Diarrhea type: unspecified type Qualified Code(s): R19.7 - Diarrhea, unspecified (7) PE, Pulmonary embolism SNOMED Code(s): 58755210 Code(s): I26.99 - OTHER PULMONARY EMBOLISM WITHOUT ACUTE COR PULMONALE Status: Acute Current Visit: No (8) Healthcare-associated pneumonia SNOMED Code(s): 969323117, 025741369 Code(s): J18.9 - PNEUMONIA, UNSPECIFIED ORGANISM Status: Acute Current Visit: Yes (9) Hyponatremia SNOMED Code(s): 20026100 Code(s): E87.1 - HYPO-OSMOLALITY AND HYPONATREMIA Status: Acute Current Visit: Yes - Problem List Review Problem List Initiated/Reviewed/Updated: Yes - Assessment Assessment:: 03/29/20 ASSESSMENT COVID-19 Generalized weakness Diarrhea Anorexia -feeling much worse today. -very weak, bedrest today -decreased appetite Hypoxia -O2 now at 2L/nc, was 5 liters overnight -crackles bilateral posterior Renal insufficiency -1.5 week history of decreased po intake with diarrhea -Cre 1.5 -BUN 17 -GFR 44 Vital Signs: -T max 99.1, HR 75, BP 118/64, RR 16, 94% on 2L/NC Labs: * WBC 4.55 * HGB 12.8 * Na 138 * K+ 4.0 * Mg 2.0 * BUN 17 * Creat 1.5 * GFR 44 03/30/2020 COVID-19 pneumonia with secondary hypoxemia * CT angiogram of the chest showed patchy areas of increased density on both sides of the chest consistent with pneumonia. This could be either bacterial or viral. * Hypoxemia is certainly better today. Oxygen saturations are in the low 90s on room air. * Currently on remdesivir, Rocephin, azithromycin, and dexamethasone * Received 2 units of convalescent plasma * WBC 3.66, C-reactive protein 4.6 Pulmonary embolism * Patient was noncompliant with his Xarelto for 3 days. * Patient also missed the morning of the when he was transferred from the emergency department to the medical floor. * D-dimer increased from 4 to 23. * Patient's hypoxemia is actually improved today after restarting Xarelto yesterday. Generalized weakness with diarrhea and anorexia * Significant improvement in all 3 conditions. * Hemoglobin 11.8 Chronic renal insufficiencyimproved * BUN 19, creatinine 1.2, GFR 57 03/31/2020 COVID-19 pneumonia with improving hypoxemia * Afebrile * Continued improvement in oxygen saturations and respiratory status. * Current treatment includes remdesivir, Rocephin, and dexamethasone. * Completed azithromycin and received 2 units of convalescent plasma. * WBC 5.5 Pulmonary embolism right lung * Restarted Xarelto at 20 mg daily. * Decision was to not switch to 50 mg twice daily because he was having bleeding side effects, epistaxis, on the 20 mg daily. Also, he has significant improvement in just 24 hours after restarting Xarelto 20 mg. Generalized weakness with diarrhea and anorexia * Anorexia is improved. * Patient continues to complain of generalized weakness * Frequency of bowel movements has decreased. * Hemoglobin 12.1 Chronic renal insufficiency * Estimated GFR greater than 60. * BUN 26, creatinine 1.1 04/01/2020 COVID-19 pneumonia with improving hypoxemia * Afebrile * on room air * Current treatment includes remdesivir, Rocephin, and dexamethasone. * Completed azithromycin and received 2 units of convalescent plasma. * WBC 6.9 Pulmonary embolism right lung * Xarelto * D-dimer 4.25 Generalized weakness with diarrhea and anorexia * reports poor appetite. Does enjoy protein supplements. * Patient continues to complain of generalized weakness * Reporting diarrhea stools x 2 daily * Hemoglobin 12.1 * K+ 3.4 today. Oral replacement ordered. Chronic renal insufficiency * Estimated GFR greater than 60. * BUN 24, creatinine 1.1 04/02/2020 COVID-19 pneumonia with improving hypoxemia * Afebrile * on room air * Current treatment includes remdesivir, Rocephin, and dexamethasone. * Completed azithromycin and received 2 units of convalescent plasma. * WBC 7.29 Pulmonary embolism right lung * Xarelto Generalized weakness with diarrhea and anorexia * reports poor appetite. Does enjoy protein supplements. * Patient continues to complain of generalized weakness * Reporting diarrhea stools x 2 daily * Hemoglobin 12.6 * K+ 4.2today. Chronic renal insufficiency * Estimated GFR greater than 60. * BUN 23, creatinine 1.1 04/03/2020 COVID-19 pneumonia with improving hypoxemia * Afebrile * on room air * Current treatment includes dexamethasone. * Completed azithromycin, Rocephin, remdesivir and received 2 units of convalescent plasma. * WBC 8.64 * Hgb 13.4 * D-dimer 1.80 * CRP 1.0 * CXR continuing focal interstitial change within the right midlung. Mild area of persisting pneumonia is possible. Lesser interstitial change within the left base which is most likely chronic. Lungs otherwise clear. Pulmonary embolism right lung * Xarelto Generalized weakness with diarrhea and anorexia * still taking po poorly. Taking protein supplements. * has not had any stools today * K+ 3.7 Oral dose of potassium ordered for today. Chronic renal insufficiency * Estimated GFR greater than 60. * BUN 24, creatinine 1.1 Weakness of left upper extremity * new onset weakness of left arm with inability to grasp objects. Unable to lift left arm without assistance. Neuro assessment otherwise unremarkable. * CT head ordered stat. 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 These findings are stable from prior head CT study. Other senescent change noted but this is also stable. Nothing acute is appreciated. 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 No acute diffusion abnormalities are seen. No abnormal enhancement in seen. 04/04/20 Back on 1 liter of oxygen. Increased movement of left upper extremity Carotid ultrasound mild to moderate amount of plaque noted within the left carotid bulb extending into the internal carotid artery. Small amount of plaque noted within the left carotid bulb. Plaque on the left side has irregular surface margins. Plaque on the right side has smother surface margins. Velocity measurements within both internal carotid arteries correspond to stenosis in the range of 1-49 percent. Vital signs trend -Blood pressure: 124-150/62-96 -T-max 97.9 -Heart rate: 52-67 -Pulse ox 92%-95% on 1 liter O2 Lab Results WBC up from 8.64-9.54 Hgb down from 13.4-12.8 K+ up from 3.7 to 4.0 Mg up from 2.0-2.1 BUN down from 24-23 Cre 1.1 GFR >60 PLAN -continue dexamethasone day 7 -monitor for hypoxemia -qualify for home O2 -continue home statin -renally dosed medications 04/05/20 More fatigued today with increased need for O2 up to 2 L CTA ordered reported negative for clots ABG's ordered no significant abnormalities Vital signs trend -Blood pressure:111-142/58-69 -T-max 97.5 -Heart rate: 58-80 -Pulse ox 93% on 2 Liters Lab Results WBC up from 9.54-12.59 Ddimer down from 1.80-1.28 BUN up from 23-26 Cre up from 1.1 to 1.2 GFR down from >60 to 57 CRP down from 1.0 to 0.7 PLAN -continue dexamethasone day 8 -monitor for hypoxemia -CTA of chest--> negative for PE -continue home statin -renally dosed medications Due to high requirements of oxygen and mild increase in white count with toxic granulation patient was started on triple antibiotic coverage for hospital- acquired pneumonia and procalcitonin was ordered 04/06/20 Continues to require 2 L nasal cannula Vital signs trend Blood pressure: 1131 36/50 4-70 T-max 97.9 Heart rate 55 to 60 bpm Pulse ox greater than 89% I's and O's Urine output 1100 24-hour balance +480 Lab results Procalcitonin was negative PLAN Continue Levaquin, vancomycin and Zosyn Follow-up on procalcitonin level Continue oxygen supplementation via nasal cannula Continue Xarelto Day 9 out of 10 of dexamethasone PRN albuterol 04/07/20 Brought back down to 1 L/min Nursing reports mood has changed significantly since yesterday when family came to see him through the window Since procalcitonin result was negative antibiotics were discontinued Did not drink a lot of fluids the past 2 days but intake has improved today Vital signs trend Blood pressure: 110-148/55-79 T-max 98.2 Heart rate 50-71x' Pulse ox greater than 92% I's and O's Urine output 1700 Lab results WBC is up from 12.59-13.18 without changes in differential Sodium up from 132-134 GFR down from 57-44 Blood cultures negative x7 days - Plan Plan:: Healthcare associated pneumonia Pulmonary embolism, on Xarelto Acute hypoxemic respiratory failure, improved and stable Discontinue Levaquin, vancomycin and Zosyn Continue oxygen supplementation via nasal cannula Continue Xarelto Pneumonia due to COVID-19 virus, completed treatment Day 10 out of 10 of dexamethasone PRN albuterol Acute kidney injury 2/2 decreased oral intake Hyponatremia, improving Encourage oral intake Monitor urine output Repeat labs in the morning Renally dose medications and avoid nephrotoxic agents Anorexia, resolved Diarrhea, resolved Acute weakness of left upper extremity, resolved PROPHYLAXIS DVT-Xarelto GI- not indicated CODE STATUS: FULL CODE DISPOSITION: Patient admitted 10 days ago for COVID pneumonia who completed Remdesivir and dexamethasone as well as 2 plasma infusions. Required oxygen supplementation since admission which has been tapered down to 1 L today. Has requested outpatient physical therapy which has been set up by social work. Discharge tomorrow is likely.
[2020-04-07] MEDS: Nortriptyline 25 MG Cap PO SCH (21:04)
[2020-04-07] MEDS: Simvastatin 20 MG Tab PO SCH (21:04)
[2020-04-08] MEDS: Propranolol 60 MG Cap.ER PO SCH (08:24)
[2020-04-08] MEDS: Cholecalciferol (Vitamin D3) 25 MCG Tab PO SCH (08:24)
[2020-04-08] MEDS: rOPINIRole 1 MG Tab PO SCH (08:24)
[2020-04-08] MEDS: Rivaroxaban 10 MG Tab PO SCH (08:25)
[2020-04-08 12:32] VITALS: BP 111/58; PULSE 64
--- NOTE | 2020-04-09 10:45 | PCM.DCSUM1 ---
Discharge Summary - Hospital Course HPI Initial Comments: The patient presents by [facility] from home for generalized weakness, fever, and cough. The patient has not been feeling good for a few days. He has generalized weakness, not eating, fever, cough and shortness of breath. He was tested for COVID 19 and he found out yesterday that he is positive. For the past couple of days he has not gotten out of bed. He has diarrhea, nausea and vomiting also. He has no chest pain. He has no abdominal pain. He has a few relatives that were positive and they were around him a lot lately. Diagnosis: Stroke: No - Discharge Data Discharge Date: 04/08/20 Discharge Disposition: Home, Self-Care 01 Condition: Good - Referral to Home Health Primary Care Physician: Perla Ayon MD - Discharge Diagnosis/Problem(s) (1) COVID-19 SNOMED Code(s): 022091675 ICD Code: U07.1 - COVID-19 Status: Acute Priority: High (2) Hypoxia SNOMED Code(s): 269613617 ICD Code: R09.02 - HYPOXEMIA Status: Acute Priority: High (3) Renal insufficiency SNOMED Code(s): 616344955, 716435104 ICD Code: N28.9 - DISORDER OF KIDNEY AND URETER, UNSPECIFIED Status: Acute Priority: High (4) Anorexia SNOMED Code(s): 62064122 ICD Code: R63.0 - ANOREXIA Status: Acute Priority: High (5) Diarrhea SNOMED Code(s): 48778436 ICD Code: R19.7 - DIARRHEA, UNSPECIFIED Status: Acute Priority: High Qualifiers: Diarrhea type: unspecified type Qualified Code(s): R19.7 - Diarrhea, unspecified (6) Generalized weakness SNOMED Code(s): 83039125 ICD Code: R53.1 - WEAKNESS Status: Acute Priority: High (7) Weakness of left upper extremity SNOMED Code(s): 376915405 ICD Code: R29.898 - OTH SYMPTOMS AND SIGNS INVOLVING THE MUSCULOSKELETAL SYSTEM Status: Acute Priority: High - Patient Summary/Data Consults: Consultations 03/28/20 10:00 Consult to Case Management/Food Preparation Kitchen Aide [CONS] Routine OT Evaluation and Treatment [CONS] Routine PT Evaluation and Treatment [CONS] Routine 03/28/20 12:11 Consult to Curing Supervisor [CONS] Routine 04/03/20 14:17 PT Evaluation and Treatment [CONS] Routine Hospital Course: 03/29/20 ASSESSMENT COVID-19 Generalized weakness Diarrhea Anorexia -feeling much worse today. -very weak, bedrest today -decreased appetite Hypoxia -O2 now at 2L/nc, was 5 liters overnight -crackles bilateral posterior Renal insufficiency -1.5 week history of decreased po intake with diarrhea -Cre 1.5 -BUN 17 -GFR 44 Vital Signs: -T max 99.1, HR 75, BP 118/64, RR 16, 94% on 2L/NC Labs: * WBC 4.55 * HGB 12.8 * Na 138 * K+ 4.0 * Mg 2.0 * BUN 17 * Creat 1.5 * GFR 44 03/30/2020 COVID-19 pneumonia with secondary hypoxemia * CT angiogram of the chest showed patchy areas of increased density on both sides of the chest consistent with pneumonia. This could be either bacterial or viral. * Hypoxemia is certainly better today. Oxygen saturations are in the low 90s on room air. * Currently on remdesivir, Rocephin, azithromycin, and dexamethasone * Received 2 units of convalescent plasma * WBC 3.66, C-reactive protein 4.6 Pulmonary embolism * Patient was noncompliant with his Xarelto for 3 days. * Patient also missed the morning of the when he was transferred from the emergency department to the medical floor. * D-dimer increased from 4 to 23. * Patient's hypoxemia is actually improved today after restarting Xarelto yesterday. Generalized weakness with diarrhea and anorexia * Significant improvement in all 3 conditions. * Hemoglobin 11.8 Chronic renal insufficiencyimproved * BUN 19, creatinine 1.2, GFR 57 03/31/2020 COVID-19 pneumonia with improving hypoxemia * Afebrile * Continued improvement in oxygen saturations and respiratory status. * Current treatment includes remdesivir, Rocephin, and dexamethasone. * Completed azithromycin and received 2 units of convalescent plasma. * WBC 5.5 Pulmonary embolism right lung * Restarted Xarelto at 20 mg daily. * Decision was to not switch to 50 mg twice daily because he was having bleeding side effects, epistaxis, on the 20 mg daily. Also, he has significant improvement in just 24 hours after restarting Xarelto 20 mg. Generalized weakness with diarrhea and anorexia * Anorexia is improved. * Patient continues to complain of generalized weakness * Frequency of bowel movements has decreased. * Hemoglobin 12.1 Chronic renal insufficiency * Estimated GFR greater than 60. * BUN 26, creatinine 1.1 04/01/2020 COVID-19 pneumonia with improving hypoxemia * Afebrile * on room air * Current treatment includes remdesivir, Rocephin, and dexamethasone. * Completed azithromycin and received 2 units of convalescent plasma. * WBC 6.9 Pulmonary embolism right lung * Xarelto * D-dimer 4.25 Generalized weakness with diarrhea and anorexia * reports poor appetite. Does enjoy protein supplements. * Patient continues to complain of generalized weakness * Reporting diarrhea stools x 2 daily * Hemoglobin 12.1 * K+ 3.4 today. Oral replacement ordered. Chronic renal insufficiency * Estimated GFR greater than 60. * BUN 24, creatinine 1.1 04/02/2020 COVID-19 pneumonia with improving hypoxemia * Afebrile * on room air * Current treatment includes remdesivir, Rocephin, and dexamethasone. * Completed azithromycin and received 2 units of convalescent plasma. * WBC 7.29 Pulmonary embolism right lung * Xarelto Generalized weakness with diarrhea and anorexia * reports poor appetite. Does enjoy protein supplements. * Patient continues to complain of generalized weakness * Reporting diarrhea stools x 2 daily * Hemoglobin 12.6 * K+ 4.2today. Chronic renal insufficiency * Estimated GFR greater than 60. * BUN 23, creatinine 1.1 04/03/2020 COVID-19 pneumonia with improving hypoxemia * Afebrile * on room air * Current treatment includes dexamethasone. * Completed azithromycin, Rocephin, remdesivir and received 2 units of convalescent plasma. * WBC 8.64 * Hgb 13.4 * D-dimer 1.80 * CRP 1.0 * CXR continuing focal interstitial change within the right midlung. Mild area of persisting pneumonia is possible. Lesser interstitial change within the left base which is most likely chronic. Lungs otherwise clear. Pulmonary embolism right lung * Xarelto Generalized weakness with diarrhea and anorexia * still taking po poorly. Taking protein supplements. * has not had any stools today * K+ 3.7 Oral dose of potassium ordered for today. Chronic renal insufficiency * Estimated GFR greater than 60. * BUN 24, creatinine 1.1 Weakness of left upper extremity * new onset weakness of left arm with inability to grasp objects. Unable to lift left arm without assistance. Neuro assessment otherwise unremarkable. * CT head ordered stat. 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 These findings are stable from prior head CT study. Other senescent change noted but this is also stable. Nothing acute is appreciated. 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 No acute diffusion abnormalities are seen. No abnormal enhancement in seen. 04/04/20 Back on 1 liter of oxygen. Increased movement of left upper extremity Carotid ultrasound mild to moderate amount of plaque noted within the left carotid bulb extending into the internal carotid artery. Small amount of plaque noted within the left carotid bulb. Plaque on the left side has irregular surface margins. Plaque on the right side has smother surface margins. Velocity measurements within both internal carotid arteries correspond to stenosis in the range of 1-49 percent. Vital signs trend -Blood pressure: 124-150/62-96 -T-max 97.9 -Heart rate: 52-67 -Pulse ox 92%-95% on 1 liter O2 Lab Results WBC up from 8.64-9.54 Hgb down from 13.4-12.8 K+ up from 3.7 to 4.0 Mg up from 2.0-2.1 BUN down from 24-23 Cre 1.1 GFR >60 PLAN -continue dexamethasone day 7 -monitor for hypoxemia -qualify for home O2 -continue home statin -renally dosed medications 04/05/20 More fatigued today with increased need for O2 up to 2 L CTA ordered reported negative for clots ABG's ordered no significant abnormalities Vital signs trend -Blood pressure:111-142/58-69 -T-max 97.5 -Heart rate: 58-80 -Pulse ox 93% on 2 Liters Lab Results WBC up from 9.54-12.59 Ddimer down from 1.80-1.28 BUN up from 23-26 Cre up from 1.1 to 1.2 GFR down from >60 to 57 CRP down from 1.0 to 0.7 PLAN -continue dexamethasone day 8 -monitor for hypoxemia -CTA of chest--> negative for PE -continue home statin -renally dosed medications Due to high requirements of oxygen and mild increase in white count with toxic granulation patient was started on triple antibiotic coverage for hospital- acquired pneumonia and procalcitonin was ordered 04/06/20 Continues to require 2 L nasal cannula Vital signs trend Blood pressure: 1131 36/50 4-70 T-max 97.9 Heart rate 55 to 60 bpm Pulse ox greater than 89% I's and O's Urine output 1100 24-hour balance +480 Lab results Procalcitonin was negative PLAN Continue Levaquin, vancomycin and Zosyn Follow-up on procalcitonin level Continue oxygen supplementation via nasal cannula Continue Xarelto Day 9 out of 10 of dexamethasone PRN albuterol 04/07/20 Brought back down to 1 L/min Nursing reports mood has changed significantly since yesterday when family came to see him through the window Since procalcitonin result was negative antibiotics were discontinued Did not drink a lot of fluids the past 2 days but intake has improved today Vital signs trend Blood pressure: 110-148/55-79 T-max 98.2 Heart rate 50-71x' Pulse ox greater than 92% I's and O's Urine output 1700 Lab results WBC is up from 12.59-13.18 without changes in differential Sodium up from 132-134 GFR down from 57-44 Blood cultures negative x7 days 04/08/20 Pt discharged to home on RA. Continue incentive spirometry. Follow up with outpatient physical therapy. Follow up with primary care physician in 1 week. - Patient Instructions Diet: Regular Diet as Tolerated Activity: As Tolerated, Cough & Deep Breathe Notify Provider of: Fever, Nausea and/or Vomiting Other/Special Instructions: Discharge to home on home O2. Follow up with primary physician in 1 week. Incentive spirometer 10 times every hour. Restart Xarelto 15mg twice a day for 21 days, and then take 20mg daily. Outpatient physical therapy. Follow up with primary physician or go to the ED should your condition worsen or change. - Discharge Plan *PRESCRIPTION DRUG MONITORING PROGRAM REVIEWED*: No *COPY OF PRESCRIPTION DRUG MONITORING REPORT IN PATIENT [place]: No Prescriptions/Med Rec: Rivaroxaban [Xarelto] 15 mg PO BID 21 Days #42 tab Home Medications: Home Meds Cholecalciferol (Vitamin D3) [Vitamin D3] 2,000 unit PO DAILY 12/09/18 [History] Fish Oil/[place]-3 Fatty Acids [Fish Oil 1,000 MG] 2,000 mg PO DAILY 12/09/18 [History] Lactobacillus Acidophilus [Acidophilus] 1 each PO DAILY 12/09/18 [History] Losartan [Cozaar] 25 mg PO DAILY 12/09/18 [History] Multivitamin [Daily Multiple Vitamin] 1 each PO BID 12/09/18 [History] Pyridoxine HCl (Vitamin B6) [Pyridoxine HCl] 1 tab PO DAILY 12/09/18 [History] Vit A/C/E AC/Znox/Cupric Oxide [Eye Vitamin-Minerals Tablet] 1 tab PO BID 12/09/18 [History] atorvaSTATin Calcium [Atorvastatin Calcium] 20 mg PO BEDTIME 12/09/18 [History] rOPINIRole HCl [Ropinirole ER] 1 mg PO BID 12/09/18 [History] Nortriptyline HCl [Pamelor] 25 mg PO BEDTIME 03/28/20 [History] Propranolol [Inderal LA] 60 mg PO DAILY 03/28/20 [History] Rivaroxaban [Xarelto] 15 mg PO BID 21 Days #42 tab 04/08/20 [Rx] Oxygen Therapy Mode: Nasal Cannula Oxygen Flow Rate (L/min): 1 Maintain SpO2% greater than: 92 Patient Handouts: COVID-19, Rivaroxaban oral tablets, Sepsis, Diagnosis, Adult, Pulmonary Embolism, Venous Thromboembolism Prevention Forms: ED Department Discharge Referrals: Perla Ayon MD [Primary Care Provider] - ([facility] will call you to schedule your follow up appointment Contact [facility] call center) - Discharge Summary/Plan Comment DC Time >30 min.: Yes (45 min) - Patient Data Vitals - Most Recent: Last Vital Signs Temp 97.2 F 04/08/20 12:28 Pulse 64 04/08/20 12:28 Resp 16 04/08/20 12:25 BP 111/58 L 04/08/20 12:25 Pulse Ox 93 L 04/08/20 12:28 Weight - Most Recent: 181 lb 8 oz I&O - Last 24 hours: Intake & Output 04/08/20 04/09/20 04/09/20 22:59 06:59 14:59 Intake Total 800 Balance 800 Med Orders - Current: Current Medications Discontinued Medications Acetaminophen (Tylenol) 650 mg PO Q4H PRN PRN Reason: Pain (Mild 1-3)/fever Last Admin: 03/30/20 21:03 Dose: 650 mg Documented by: Albuterol (Proventil Neb Soln) 2.5 mg NEB Q2H PRN PRN Reason: Shortness Of Breath/wheezing Last Admin: 04/03/20 16:34 Dose: 2.5 mg Documented by: Albuterol (Proventil Neb Soln) 2.5 mg NEB ONETIME ONE Stop: 03/28/20 10:05 Last Admin: 03/28/20 10:18 Dose: 2.5 mg Documented by: Bisacodyl (Dulcolax) 10 mg RECTAL ONETIME ONE Stop: 04/05/20 21:01 Last Admin: 04/05/20 21:41 Dose: 10 mg Documented by: Cholecalciferol (Vitamin D3) 50 mcg PO DAILY [facility] Last Admin: 04/08/20 08:24 Dose: 50 mcg Documented by: Dexamethasone (Dexamethasone) 6 mg IVPUSH Q24H [facility] Stop: 04/07/20 09:01 Last Admin: 04/01/20 09:31 Dose: 6 mg Documented by: Dexamethasone (Dexamethasone) 6 mg PO DAILY [facility] Stop: 04/07/20 09:01 Last Admin: 04/07/20 08:10 Dose: 6 mg Documented by: Gadobenate Dimeglumine (Multihance) 17 ml IVPUSH ONETIME ONE Stop: 04/03/20 12:31 Last Admin: 04/03/20 12:08 Dose: 17 ml Documented by: Sodium Chloride (Normal Saline) 1,000 mls @ 125 mls/hr IV ASDIRECTED [facility] Last Admin: 03/28/20 09:54 Dose: 125 mls/hr Documented by: Ceftriaxone Sodium 2 gm/ (Sodium Chloride) 100 mls @ 200 mls/hr IV Q24H [facility] Stop: 04/01/20 11:59 Last Admin: 04/01/20 12:48 Dose: 200 mls/hr Documented by: Azithromycin 500 mg/ Sodium (Chloride) 250 mls @ 250 mls/hr IV Q24H [facility] Stop: 03/30/20 11:59 Last Admin: 03/30/20 11:55 Dose: 250 mls/hr Documented by: Sodium Chloride (Normal Saline) Confirm Administered Dose 250 mls @ as directed .ROUTE .STK-MED ONE Stop: 03/28/20 19:44 Last Admin: 03/28/20 20:07 Dose: 125 mls/hr Documented by: Sodium Chloride (Normal Saline) Confirm Administered Dose 250 mls @ as directed .ROUTE .STK-MED ONE Stop: 03/28/20 20:38 Last Admin: 03/28/20 21:12 Dose: 125 mls/hr Documented by: Remdesivir 200 mg/ Sodium (Chloride) 250 mls @ 250 mls/hr IV ONETIME ONE Stop: 03/29/20 09:59 Last Admin: 03/29/20 09:40 Dose: 250 mls/hr Documented by: Remdesivir 100 mg/ Sodium (Chloride) 100 mls @ 100 mls/hr IV Q24H [facility] Stop: 04/02/20 09:59 Last Admin: 04/02/20 08:53 Dose: 100 mls/hr Documented by: Sodium Chloride (Normal Saline) 1,000 mls @ 40 mls/hr IV ASDIRECTED [facility] Sodium Chloride (Normal Saline) 100 mls @ 75 mls/hr IV ASDIRECTED [facility] Last Admin: 04/05/20 15:39 Dose: 75 mls/hr Documented by: Piperacillin Sod/Tazobactam (Sod 4.5 gm/ Sodium Chloride) 100 mls @ 200 mls/hr IV ONETIME ONE Stop: 04/05/20 15:59 Last Admin: 04/05/20 15:36 Dose: 200 mls/hr Documented by: Vancomycin HCl 1 gm/ Sodium (Chloride) 250 mls @ 250 mls/hr IV Q12H [facility] Last Admin: 04/05/20 16:29 Dose: Not Given Documented by: Vancomycin HCl 1 gm/Vancomycin HCl 500 mg/ Sodium Chloride 500 mls @ 250 mls/hr IV ONETIME ONE Stop: 04/05/20 17:59 Last Admin: 04/05/20 17:29 Dose: 250 mls/hr Documented by: Vancomycin HCl 1 gm/Vancomycin HCl 250 mg/ Sodium Chloride 250 mls @ 166.667 mls/hr IV Q18H [facility] Last Admin: 04/06/20 09:00 Dose: 166.667 mls/hr Documented by: Piperacillin Sod/Tazobactam (Sod 4.5 gm/ Sodium Chloride) 100 mls @ 25 mls/hr IV Q8H [facility] Last Admin: 04/06/20 07:09 Dose: 25 mls/hr Documented by: Iopamidol (Isovue-370 (76%)) 100 ml IVPUSH ONETIME ONE Stop: 03/30/20 09:02 Last Admin: 03/30/20 09:41 Dose: 100 ml Documented by: Iopamidol (Isovue-370 (76%)) 100 ml IVPUSH ONETIME ONE Stop: 04/05/20 14:26 Last Admin: 04/05/20 15:36 Dose: Not Given Documented by: Iopamidol (Isovue-370 (76%)) 100 ml IVPUSH ONETIME ONE Stop: 04/05/20 15:39 Last Admin: 04/05/20 13:40 Dose: 100 ml Documented by: Levofloxacin (Levaquin) 750 mg PO Q48H [facility] Last Admin: 04/05/20 15:37 Dose: 750 mg Documented by: Magnesium Hydroxide (Milk Of Magnesia) 30 ml PO DAILY PRN PRN Reason: Constipation Last Admin: 04/05/20 04:42 Dose: 30 ml Documented by: Non-Formulary Medication (Ropinirole Hcl [Ropinirole Er]) 1 mg PO BID [facility] Last Admin: 03/28/20 23:04 Dose: Not Given Documented by: Nortriptyline HCl (Nortriptyline) 25 mg PO BEDTIME [facility] Last Admin: 04/07/20 21:04 Dose: 25 mg Documented by: Ondansetron HCl (Zofran) 4 mg IVPUSH ONETIME ONE Stop: 03/28/20 00:43 Last Admin: 03/28/20 01:19 Dose: 4 mg Documented by: Ondansetron HCl (Zofran) 4 mg IV Q4H PRN PRN Reason: Nausea/Vomiting Potassium Chloride (Klor-Con M20) 40 meq PO Q4H [facility] Stop: 04/01/20 13:01 Last Admin: 04/01/20 12:48 Dose: 40 meq Documented by: Potassium Chloride (Klor-Con M20) 20 meq PO ONETIME ONE Stop: 04/03/20 07:29 Last Admin: 04/03/20 08:37 Dose: 20 meq Documented by: Propranolol HCl (Inderal La) 60 mg PO DAILY [facility] Last Admin: 04/08/20 08:24 Dose: 60 mg Documented by: Rivaroxaban (Xarelto) 20 mg PO DAILY [facility] Last Admin: 04/08/20 08:25 Dose: 20 mg Documented by: Ropinirole HCl (Requip) 1 mg PO BID [facility] Last Admin: 04/08/20 08:24 Dose: 1 mg Documented by: Simvastatin (Zocor) 20 mg PO BEDTIME [facility] Last Admin: 04/07/20 21:04 Dose: 20 mg Documented by: Sodium Chloride (Saline Flush) 10 ml FLUSH ASDIRECTED PRN PRN Reason: Keep Vein Open Last Admin: 03/28/20 01:21 Dose: 10 ml Documented by: Sodium Chloride (Saline Flush) 10 ml FLUSH ONETIME PRN PRN Reason: Keep Vein Open Last Admin: 03/30/20 09:41 Dose: 10 ml Documented by: Sodium Chloride (Saline Flush) 10 ml FLUSH ONETIME ONE Stop: 04/03/20 12:31 Last Admin: 04/03/20 12:09 Dose: 10 ml Documented by: Sodium Chloride (Saline Flush) 10 ml FLUSH ONETIME PRN PRN Reason: IV FLUSH Vancomycin HCl (Pharmacy To Dose - Vancomycin) 1 dose .XX ASDIRECTED PRN PRN Reason: RX TO DOSE VANCO
== END 2020-04-08 16:25 | disposition home or self-care (01) | DRG 177 ==
LOC: JD.ED 00:15 → JD.MS 07:07
PROVIDERS: ADMIT Family Medicine; ATTEND Family Medicine
PROC: 8E0ZXY6 Isolation (ICD-10-PCS; 2020-03-28)
PROC: XW033E5 Introduction of Remdesivir Anti-infective into Peripheral Vein, Percutaneous Approach, New Technology Group 5 (ICD-10-PCS; principal; 2020-03-30)
PROC: XW13325 Transfusion of Convalescent Plasma (Nonautologous) into Peripheral Vein, Percutaneous Approach, New Technology Group 5 (ICD-10-PCS; 2020-03-30)
DX: U07.1 COVID-19 (principal); R09.02 Hypoxemia; N28.9 Disorder of kidney and ureter, unspecified; H54.7 Unspecified visual loss; H91.93 Unspecified hearing loss, bilateral; E78.00 Pure hypercholesterolemia, unspecified; I10 Essential (primary) hypertension; Z86.711 Personal history of pulmonary embolism; J12.89 Other viral pneumonia; K57.90 Diverticulosis of intestine, part unspecified, without perforation or abscess without bleeding; R32 Unspecified urinary incontinence; I26.99 Other pulmonary embolism without acute cor pulmonale; Z85.828 Personal history of other malignant neoplasm of skin; Z90.79 Acquired absence of other genital organ(s); J96.01 Acute respiratory failure with hypoxia; Z98.890 Other specified postprocedural states; N17.9 Acute kidney failure, unspecified; Z79.899 Other long term (current) drug therapy; Z79.01 Long term (current) use of anticoagulants; R53.1 Weakness; I12.9 Hypertensive chronic kidney disease with stage 1 through stage 4 chronic kidney disease, or unspecified chronic kidney disease; N18.9 Chronic kidney disease, unspecified; R19.7 Diarrhea, unspecified; Z90.49 Acquired absence of other specified parts of digestive tract; Z96.653 Presence of artificial knee joint, bilateral; Z85.46 Personal history of malignant neoplasm of prostate; K59.09 Other constipation
CPT/HCPCS: 36415; 36600; 71045; 80053; 82728; 82803; 83605; 83615; 84145; 85025; 85379; 85610; 86140; 86900; 86901; 87040 ×2; 96361; 96374; 99285; J2405; J7030; 36430; 70450; 70450-26; 70553; 70553-26; 71275; 71275-26; 80048; 83735; 84100; 86738; 87899; 93880; 93880-26; 94640; 94667; 94668; 94760; 94761; 94762; 97110-GP; 97112-GP; 97116-GP; 97162-GP; 97530-GP; 99283; A9270-GY; A9577; J0456; J0696; J1100; J2543; J3370; J7040; J7050; J8540; P9017; Q9967

== ENCOUNTER 2022-04-22 21:07 | Emergency (ER) | payer MEDICARE, BC ==
[2022-04-22 21:33] VITALS: BP 128/63; PULSE 74
[2022-04-22] MEDS ORDERED: Sodium Chloride 0.9% 10 ML Syringe FLUSH PRN (21:35)
[2022-04-22 23:01] LABS: CORONAVIRUS COVID-19 NAA NEGATIVE (NEGATIVE)
[2022-04-22 23:20] LABS: ESTIMATED GFR 48 mL/min (>60)
== END 2022-04-23 00:47 | disposition home or self-care (01) ==
LOC: JD.ED 21:07
DX: R68.83 Chills (without fever) (principal); E78.00 Pure hypercholesterolemia, unspecified; I10 Essential (primary) hypertension; Z20.822 Contact with and (suspected) exposure to COVID-19; Z79.899 Other long term (current) drug therapy; Z86.16 Personal history of COVID-19; Z90.49 Acquired absence of other specified parts of digestive tract
CPT/HCPCS: 0240U; 36415; 51701; 71046; 80053; 81001; 83605; 85007; 85027; 85610; 86140; 87040; 99283; J3490

== ENCOUNTER 2023-07-07 18:01 | Inpatient (IN) | payer MEDICARE, BC ==
[2023-07-07] MEDS ORDERED: Sodium Chloride 0.9% 1,000 ML IV ONE (18:19)
[2023-07-07 18:47] LABS: BASOPHILS PERCENT AUTO 0.4 % (0.0-1.0); HEMATOCRIT 36.1 % (42.0-52.0); HEMOGLOBIN 11.9 gm/dl (14.0-18.0); IMMATURE GRAN ABSOLUTE AUTO 0.06 K/mm3 (0.00-0.05); IMMATURE GRAN PERCENT AUTO 0.6 % (0.0-0.4); LYMPHOCYTES ABSOLUTE AUTO 0.9 K/mm3 (1.0-4.8); LYMPHOCYTES PERCENT AUTO 10.1 % (24.0-44.0); MEAN CORPUSCULAR HEMOGLOBIN 30.1 pg (28.0-32.0); MEAN CORPUSCULAR VOLUME 91.2 fl (83.0-99.0); MEAN PLATELET VOLUME 9.7 fl (9.4-12.4); MONOCYTES ABSOLUTE AUTO 0.8 K/mm3 (0.0-0.8); MONOCYTES PERCENT AUTO 8.3 % (0.0-8.0); NEUTROPHILS ABSOLUTE AUTO 7.5 K/mm3 (1.8-7.7); NEUTROPHILS PERCENT AUTO 80.6 % (41.0-71.0); PLATELET COUNT,PLT 148 K/mm3 (150-400); RED BLOOD CELL COUNT 3.96 M/mm3 (4.52-5.90); WHITE BLOOD CELL COUNT,WBC 9.29 K/mm3 (3.9-11.3)
[2023-07-07 19:10] LABS: A/G RATIO 0.9 (1-2); ALBUMIN 2.8 g/dl (3.4-5.0); ANION GAP 14.9 (5-15); BILIRUBIN TOTAL 1.1 mg/dL (0.2-1.0); BUN/CREATININE RATIO 12.9 (14-18); CALCIUM 8.5 mg/dL (8.5-10.1); CREATININE 1.4 mg/dL (0.7-1.3); EST CRCL DRUG DOSING (CG) 36.93 mL/min; MAGNESIUM 1.7 mg/dL (1.8-2.4); POTASSIUM,K 3.9 mEq/L (3.5-5.1); PROTEIN TOTAL,TP 5.9 g/dl (6.4-8.2)
[2023-07-07 20:05] LABS: INFLUENZA A NAA NEGATIVE (NEGATIVE); RESPIRATORY SYNCYTIAL VIR NAA NEGATIVE (NEGATIVE)
[2023-07-07] MEDS ORDERED: Albuterol/Ipratropium 3.0-0.5 MG/3 ML Neb Soln NEB PRN (21:01)
[2023-07-07] MEDS ORDERED: Acetaminophen 325 MG Tab PO PRN (22:56)
[2023-07-07] MEDS ORDERED: Ondansetron 4 MG/2 ML SDV IVPUSH PRN (22:58)
[2023-07-07] MEDS ORDERED: Sodium Chloride 0.9% 1,000 ML IV SCH (23:00)
[2023-07-07 23:32] LABS: APPEARANCE,URINE SLT CLOUDY (Clear); BILIRUBIN,URINE NEGATIVE (Negative); COLOR,URINE YELLOW (Yellow); GLUCOSE,URINE NEGATIVE (Negative); KETONES,URINE NEGATIVE (Negative); LEUKOCYTE ESTERASE,URINE NEGATIVE (Negative); NITRITE,URINE NEGATIVE (Negative); OCCULT BLOOD,URINE 2+ (Negative); PROTEIN,URINE 1+ (Negative); UROBILINOGEN,URINE 0.2 (0.2-1.0)
[2023-07-07 23:49] LABS: BACTERIA,URINE FEW /hpf (FEW); EPITHELIAL CELLS,URINE 0-5 /hpf (0-5); HYALINE CASTS,URINE 0-5 /lpf (0-5); MUCUS,URINE FEW /hpf (FEW); RBC,URINE >100 /hpf (0-5); WBC,URINE 0-5 /hpf (0-5)
[2023-07-08 01:40] LABS: CORONAVIRUS COVID-19 NAA POSITIVE (NEGATIVE)
[2023-07-08] MEDS ORDERED: Docusate Sodium 100 MG Cap PO PRN (09:00)
[2023-07-08] MEDS ORDERED: REMDESIVIR 200 MG in Sodium Chloride 0.9% 250 ML IV ONE (10:15)
[2023-07-08] MEDS: Propranolol 60 MG Cap.ER PO SCH (10:52)
[2023-07-08] MEDS: Rivaroxaban 10 MG Tab PO SCH (10:52)
[2023-07-08] MEDS: Tamsulosin 0.4 MG Cap.ER PO SCH (10:53)
[2023-07-08] MEDS: Dexamethasone 6 MG TABLET PO SCH (10:53)
[2023-07-08] MEDS: Cholecalciferol (Vitamin D3) 25 MCG Tab PO SCH ×2 (10:53→20:36)
[2023-07-08] MEDS: Sodium Chloride 0.9% 10 ML Syringe IV SCH (13:56)
[2023-07-09 05:27] LABS: BASOPHILS PERCENT AUTO 0.2 % (0.0-1.0); HEMATOCRIT 35.2 % (42.0-52.0); HEMOGLOBIN 11.7 gm/dl (14.0-18.0); IMMATURE GRAN ABSOLUTE AUTO 0.05 K/mm3 (0.00-0.05); IMMATURE GRAN PERCENT AUTO 0.8 % (0.0-0.4); LYMPHOCYTES ABSOLUTE AUTO 1.1 K/mm3 (1.0-4.8); LYMPHOCYTES PERCENT AUTO 17.3 % (24.0-44.0); MEAN CORPUSCULAR HEMOGLOBIN 30.5 pg (28.0-32.0); MEAN CORPUSCULAR HGB CONC 33.2 g/dl (32.0-36.0); MEAN CORPUSCULAR VOLUME 91.9 fl (83.0-99.0); MEAN PLATELET VOLUME 10.2 fl (9.4-12.4); MONOCYTES ABSOLUTE AUTO 0.6 K/mm3 (0.0-0.8); MONOCYTES PERCENT AUTO 9.6 % (0.0-8.0); NEUTROPHILS ABSOLUTE AUTO 4.7 K/mm3 (1.8-7.7); NEUTROPHILS PERCENT AUTO 72.1 % (41.0-71.0); PLATELET COUNT,PLT 131 K/mm3 (150-400); RED BLOOD CELL COUNT 3.83 M/mm3 (4.52-5.90); WHITE BLOOD CELL COUNT,WBC 6.55 K/mm3 (3.9-11.3)
[2023-07-09 05:42] LABS: ANION GAP 13.1 (5-15); BUN/CREATININE RATIO 14.6 (14-18); C-REACTIVE PROTEIN 7.4 mg/dL (<1.0); CALCIUM 8.2 mg/dL (8.5-10.1); CREATININE 1.3 mg/dL (0.7-1.3); EST CRCL DRUG DOSING (CG) 39.78 mL/min; MAGNESIUM 1.8 mg/dL (1.8-2.4); POTASSIUM,K 4.1 mEq/L (3.5-5.1)
[2023-07-09] MEDS: Tamsulosin 0.4 MG Cap.ER PO SCH (08:40)
[2023-07-09] MEDS: Rivaroxaban 10 MG Tab PO SCH (08:40)
[2023-07-09] MEDS: Cholecalciferol (Vitamin D3) 25 MCG Tab PO SCH (08:40)
[2023-07-09] MEDS: Dexamethasone 6 MG TABLET PO SCH (08:41)
[2023-07-09] MEDS: Propranolol 60 MG Cap.ER PO SCH (08:41)
[2023-07-09] MEDS ORDERED: REMDESIVIR 100 MG in Sodium Chloride 0.9% 250 ML IV SCH (10:00)
[2023-07-09 11:51] VITALS: BP 111/73; PULSE 47
[2023-07-09] MEDS: Sodium Chloride 0.9% 10 ML Syringe IV SCH (14:52)
== END 2023-07-09 14:13 | disposition home health service (06) | DRG 177 ==
LOC: JD.ED 18:01 → JD.MS 20:57 → OBSVTOIN 07-08 08:41
PROVIDERS: ADMIT Internal Medicine; ATTEND Internal Medicine
PROC: 8E0ZXY6 Isolation (ICD-10-PCS; principal; 2023-07-07)
PROC: 3E0333Z Introduction of Anti-inflammatory into Peripheral Vein, Percutaneous Approach (ICD-10-PCS; 2023-07-08)
PROC: XW033E5 Introduction of Remdesivir Anti-infective into Peripheral Vein, Percutaneous Approach, New Technology Group 5 (ICD-10-PCS; 2023-07-09)
DX: U07.1 COVID-19 (principal); J96.01 Acute respiratory failure with hypoxia; J90 Pleural effusion, not elsewhere classified; E78.5 Hyperlipidemia, unspecified; I10 Essential (primary) hypertension; K59.09 Other constipation; Z96.653 Presence of artificial knee joint, bilateral; H91.90 Unspecified hearing loss, unspecified ear; E78.00 Pure hypercholesterolemia, unspecified; Z79.01 Long term (current) use of anticoagulants; Z86.711 Personal history of pulmonary embolism; Z86.16 Personal history of COVID-19; Z85.828 Personal history of other malignant neoplasm of skin; Z90.49 Acquired absence of other specified parts of digestive tract; Z98.890 Other specified postprocedural states; Z79.899 Other long term (current) drug therapy
CPT/HCPCS: 0241U; 36415; 71045; 80048; 80053; 81001; 83735; 85025; 86140; 94640; 94667; 94668; 94760; 94761; 96360; 96361; 97110; 97116; 97162; 99285; 96374; A9270-GY; G0378; J0248; J2405; J7030; J7050; J7620-GY; J8540